=== PATIENT | male | born 1950 | race Caucasian/White ===

== ENCOUNTER 2016-05-22 10:24 | Observation (INO) ==
--- NOTE | 2016-05-22 12:49 | Emergency Department Note ---
Disposition Clinical Impression: Weakness generalized Anemia Qualifiers: Anemia type: unspecified type Qualified Code(s): D64.9 - Anemia, unspecified Dyspnea Qualifiers: Dyspnea type: dyspnea on exertion Qualified Code(s): R06.09 - Other forms of dyspnea Disposition: Admitted As Inpatient Condition: Fair Referrals: Matthew Pool DO [Primary Care Provider] - Forms: ED Satisfaction Letter Time of Disposition: 14:18 General Adult HPI - General Chief complaint: ED Weakness Stated complaint: Low Hemoglobin Time Seen by Provider: 05/22/16 10:39 Source: patient, family Mode of arrival: private vehicle Limitations: no limitations Nursing Notes Reviewed: Yes Vital Signs Reviewed: Yes - History of Present Illness HPI Narrative: Patient presents emergent department reporting that he needs a nasal packing removed from his nose. He was seen here a few days ago after having had a nosebleed that he says went on for about 2 weeks. When he was here a few days ago he had a nasal packing to the right nostril. They did lab work at that time and his hemoglobin was low. He was given a prescription for repeat blood work and was told to follow-up here today in order to have the packing removed while in the emergency department in case it started bleeding again, in which case they would cauterize. The patient says he is been rundown and tired. He does not report any further nose bleeding. He says his stools were pretty black when he was here the first time but he says the stool colors improved significantly. Pt Subjective Complaint: Needs nasal packing removed. Pain Scale: 8 Associated symptoms: Denies: chest pain, shortness of breath, syncope - Related Data Home Medications Medication Instructions Recorded Confirmed Bentyl 09/02/15 Anju Bond 12,000 Units Capsule 09/02/15 Diazepam 09/02/15 Vitamin D3 09/02/15 09/02/15 Previous Rx's Medication Instructions Recorded Ondansetron ODT [Zofran ODT] 4 mg SL Q8HR #9 tab.rapdis 05/19/16 Allergies Allergy/AdvReac Type Severity Reaction Status Date / Time dicyclomine [From Bentyl] Allergy See Verified 05/22/16 10:33 Comments All systems ED: reviewed and negative except as stated. Constitutional: Denies: fever, chills ENT ED: Denies: ear pain, throat pain Cardiovascular: Denies: chest pain, palpitations Respiratory: Denies: cough, dyspnea Gastrointestinal: Denies: abdominal pain, vomiting, hematochezia Musculoskeletal: Denies: back pain Integumentary: Denies: rash Neurological: Denies: headache Hematological/Lymphatic: Denies: easy bleeding, easy bruising Past Medical History - Past Medical History Attestation: Yes The following information was validated with the patient. Source: patient, old records reviewed, obtained from family, nursing notes reviewed Medical history: Reports: diabetes, hyperlipidemia, other Surgical history: Reports: non-contributory Psychiatric history: Reports: anxiety - Social History Smoking Status: Former smoker Smokeless Tobacco Status: No Alcohol use: Reports: none Drug use: Reports: none Physical Exam - General Limitations: no limitations General appearance: alert, in no apparent distress - Head Head exam: atraumatic, normocephalic - Eye Eye exam: Present: normal appearance, PERRL, EOMI - ENT ENT exam: normal oropharynx, mucous membranes moist, normal external ear exam, other (Nasal packing is in place in the right nares.) - Neck Neck exam: Present: normal inspection, full ROM - Chest Chest inspection: Present: normal inspection, symmetric chest wall rise. Absent : tenderness - Respiratory Respiratory exam: Present: normal lung sounds bilaterally. Absent: respiratory distress, wheezes - Cardiovascular Cardiovascular exam: Present: regular rate, normal rhythm, normal heart sounds - Abdominal Exam Abdominal exam: Present: soft, Non-Tender, normal bowel sounds - Rectal Exam Rectal exam: Present: deferred (I did not feel there was any value to doing the rectal exam since he had swallowed so much blood couple of days ago I expect his stool to continue to be guaiac positive even though the color is improving according to his visual inspection) - Extremities Exam Extremities exam: Present: normal inspection, full ROM. Absent: pedal edema - Neurological Exam Neurological exam: Present: alert, oriented X3 - Psychiatric Psychiatric exam: Present: normal affect, normal mood - Skin Skin exam: Present: warm, dry. Absent: rash Course Course Narrative: Patient presents for nasal packing removal. I and removed that packing. There was hardly any blood on the packing at all. No active bleeding after removal. We have observed him for a while already and still no bleeding. I am rechecking his blood count to see where it is. I think if the hemoglobin is already going up then we will not do any transfusion but if the patient's hemoglobin is going down he will need to be admitted for transfusion. - Reevaluation(s) Reevaluation #1: There has been no bleeding from the nose, however Hemoglobin is lower today than it was 3 days ago. Patient is symptomatic with severe fatigue and shortness of breath with exertion. Although he does not carry a diagnosis of COPD, I am sure he has it because of The body shape and history of smoking. I think he needs to be admitted for transfusion. I will contact the hospitalist. Time: 14:10 - Consultations Consultation #1: Dr. Christopher, hospitalist - I discussed the case with the hospitalist. He has been accepted for admission. Vital Signs Temperature 97.5 F L 05/22/16 10:27 Pulse Rate 93 05/22/16 10:27 Respiratory Rate 18 05/22/16 10:27 Blood Pressure 125/80 05/22/16 10:27 O2 Sat by Pulse Oximetry 100 05/22/16 10:27 Temperature 97.5 F L 05/22/16 10:27 Pulse Rate 93 05/22/16 10:27 Respiratory Rate 18 05/22/16 10:27 Blood Pressure 125/80 05/22/16 10:27 O2 Sat by Pulse Oximetry 100 05/22/16 10:27 Oxygen Delivery Oxygen Delivery Room Air Medical Decision Making - Medical Records Medical records reviewed: Yes I reviewed the patient's medical records. - Lab Data Lab results reviewed: Yes I reviewed the patient's lab results. Result diagrams: 05/22/16 13:04 Lab Results 05/22/16 05/22/16 Range/Units 10:39 13:04 WBC 9.3 (4.3-11.1) K/mcL RBC 2.65 L (4.19-5.50) M/mcL Hgb 7.4 L (12.9-16.9) g/dL Hct 22.9 L (37.5-50.1) % MCV 86.4 (83.0-100.0) fL MCH 27.9 L (28.0-33.3) pg MCHC 32.3 (31.6-35.5) g/dL RDW 18.9 H (11.5-14.5) % Plt Count 397 (140-400) K/mcL MPV 9.8 (9.4-12.4) fL Immature Gran % 0.2 (0-4) % Seg Neutrophils % 78.7 % Lymphocytes % 12.3 % Monocytes % 7.2 % Eosinophils % 1.4 % Basophils % 0.2 % Neutrophils # 7.3 (1.6-8.9) K/mcL Lymphocytes # 1.1 (0.6-4.6) K/mcL Monocytes # 0.7 (0.0-1.3) K/mcL Eosinophils # 0.1 (0.0-0.6) K/mcL Basophils # 0.0 (0.0-0.2) K/mcL Immature Plt Fraction 2.7 (1.1-6.1) % POC Glucose 175 H (58-89)
[2016-05-22 13:28] LABS: Basophils % 0.2 %; Eosinophils # 0.1 K/mcL (0.0-0.6); Eosinophils % 1.4 %; Hematocrit 22.9 % (37.5-50.1); Hemoglobin 7.4 g/dL (12.9-16.9); Immature Granulocytes % 0.2 % (0-4); Immature Platelets 2.7 % (1.1-6.1); Lymphocytes # 1.1 K/mcL (0.6-4.6); Lymphocytes % 12.3 %; Mean Corpuscular HGB Conc 32.3 g/dL (31.6-35.5); Mean Corpuscular Hemoglobin 27.9 pg (28.0-33.3); Mean Corpuscular Volume 86.4 fL (83.0-100.0); Mean Platelet Volume 9.8 fL (9.4-12.4); Monocytes # 0.7 K/mcL (0.0-1.3); Monocytes % 7.2 %; Neutrophils # 7.3 K/mcL (1.6-8.9); Platelet Count 397 K/mcL (140-400); Red Blood Count 2.65 M/mcL (4.19-5.50); Red Cell Distribution Width 18.9 % (11.5-14.5); Segmented Neutrophils % 78.7 %
[2016-05-22] MEDS ORDERED: 0.9 % Sodium Chloride 250 ML ONE (16:20)
[2016-05-22] MEDS ORDERED: Ondansetron ODT 4 MG TAB.RAPDIS SL PRN (16:38)
[2016-05-22] MEDS ORDERED: Acetaminophen 325 MG TABLET PO PRN (16:38)
[2016-05-22] MEDS ORDERED: diazePAM 10 MG TABLET PO PRN (16:41)
[2016-05-22] MEDS ORDERED: *HR* Dextrose 50 % in Water (Syg) 50 ML SYRINGE IVP PRN (16:46)
[2016-05-22] MEDS ORDERED: Dextrose Gel 15 GM PO PRN ×2 (16:46)
[2016-05-22] MEDS ORDERED: D5% in Water 1,000 ML IVC PRN (16:46)
--- NOTE | 2016-05-22 19:19 | Internal Med History&Physical ---
Date of Encounter: 05/22/16 Time of Encounter: 07:15 Assessment and Plan (1) Weakness generalized Current visit: Yes Status: Acute Secondary to symptomatic anemia. Plan to transfuse 2 units of packed red blood cells. (2) Epistaxis Current visit: No Status: Resolved Patient reports a two-week history of epistaxis and came to our ED last Saturday , he had a nasal packing that stopped the bleeding. Patient has history of CAD , last [facility] was in 2014 and has been taking Brilinta since then.He stopped taking his home dose of Brilinta 4 days ago. For the past 3 days, he reports generalized weakness associated with dizziness and headache. No fever. No other bleeding. No abdominal pain. No chest pain. Mild shortness of breath on exertion. In our ED, his nasal packing was removed without any particular epistaxis. hemoglobin was 7.4. (3) Dyspnea Current visit: Yes Status: Acute Secondary to symptomatic anemia. Plan to transfuse 2 units of packed red blood cells. Qualifiers: Dyspnea type: dyspnea on exertion Qualified Code(s): R06.09 - Other forms of dyspnea (4) Acute blood loss anemia Current visit: No Status: Acute Secondary to epistaxis. Symptomatic anemia. hemoglobin was 7.4. Patient is hemodynamically stable. Transfuse 2 units of packed red blood cells. Close monitoring of hemoglobin. (5) HTN (hypertension) Current visit: Yes Status: Acute Hold home dose of lisinopril due to low normal blood pressure. Continue Coreg.. 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 Holding brillinta due to acute blood loss anemia. Qualifiers: Coronary Disease-Associated Artery/Lesion type: [place] artery [place] vs. transplanted heart: [place] heart Associated angina: without angina Qualified Code(s): I25.10 - Atherosclerotic heart disease of [place] coronary artery without angina pectoris (7) Diabetes mellitus Current visit: Yes Status: Acute Patient uses Levemir 15 units twice a day. Accu-Chek was 46. Follow glucose was 318. Continue Accu-Chek every 4 hours. Sliding scale insulin. Diabetic diet. Qualifiers: Diabetes mellitus type: type 2 Diabetes mellitus complication status: without complication Diabetes mellitus jail insulin use: with termite exterminator helper use Qualified Code(s): E11.9 - Type 2 diabetes mellitus without complications ; Z79.4 - termite exterminator helper (current) use of insulin Internal Medicine - H&P: HPI Chief complaint: Generalized weakness for 3 days. Admitted From: Home Plans for Post Hospital Care: Home History of present illness: Mr. Cruz is a 66 year old male with a past medical history of CAD, diabetes, hyperlipidemia and hypertension who presented with the chief complaint of generalized weakness. Patient reports a two-week history of epistaxis and came to our ED last Saturday, he had a nasal packing that stopped the bleeding. Patient has history of CAD, last VA was in 2014 and has been taking Brilinta since then. He stopped taking his home dose of Brilinta 4 days ago. For the past 3 days, he reports generalized weakness associated with dizziness and headache. No fever. No other bleeding. No abdominal pain. No chest pain. Mild shortness of breath on exertion. In our ED, his nasal packing was removed without any particular epistaxis. hemoglobin was 7.4. Past Med Surg Social Fam HX - Past Medical History Medical history: diabetes, hyperlipidemia, other Psychiatric history: anxiety, depression - Past Surgical History Surgical History: non-contributory, angioplasty/stent, cholecystectomy - Social History Smoking Status: Former smoker Smokeless Tobacco Status: No Alcohol use: none Drug use: none, other - Family History Sister Hx Family Cardiac Disorders: Yes (CAD) Internal Medicine - H&P: Meds Diazepam [Valium] 10 mg PO BID PRN 09/02/15 [History] Dicyclomine [Bentyl] 10 mg PO QID 09/02/15 [History] Ondansetron ODT [Zofran ODT] 4 mg SL Q8HR #9 tab.rapdis 05/19/16 [Rx] Carvedilol 3.125 mg PO BID 05/22/16 [History] Insulin DETEMIR [Levemir Flextouch] 15 unit SQ BID 05/22/16 [History] Insulin Human Regular [HumuLIN R] 10 unit IJ 5XD 05/22/16 [History] Levothyroxine Sodium [Levoxyl] 200 mcg PO DAILY 05/22/16 [History] Lipase/Protease/Amylase [Anju Bond 24,000 Units Capsule] 4 - 5 cap PO TIDWM 05/22 [History] Lisinopril [Zestril] 5 mg PO BID 05/22/16 [History] Simvastatin [Zocor] 20 mg PO HS 05/22/16 [History] Ticagrelor [Brilinta] 90 mg PO BID 05/22/16 [History] Allergies dicyclomine [From Bentyl] Allergy (Verified 05/22/16 10:33) See Comments All Systems PM: A 10-system review of systems was performed and is negative for pertinent findings except as documented above in the HPI. - Constitutional Vitals: Temp Pulse Resp BP Pulse Ox 97.9 F 72 16 118/82 100 05/22/16 16:30 05/22/16 16:30 05/22/16 16:30 05/22/16 16:30 05/22/16 16:30 General appearance: Present: cooperative, A&O X 3, pleasant, no acute distress, answers questions appropriately - Eye Eye exam: Present: sclera anicteric (pale) - ENT ENT exam: Present: mucous membranes dry - Neck Neck exam general surgery: Present: supple, trachea midline. Absent: lymphadenopathy - Respiratory Respiratory exam: Present: CTAB - Cardiovascular Cardiovascular exam: Present: RRR - GI/Abdominal GI/Abdominal exam: Present: normal bowel sounds, soft. Absent: distended, tenderness - Extremities Exam Extremities exam: Absent: pedal edema - Neurological Exam Neurological exam: Present: alert, oriented X3, no focal deficits, strengths equal and symetr throughout. Absent: facial droop, speech deficit - Skin Additional comments: pale Internal Med - H&P Results - Labs CBC & Chem 7: 05/22/16 13:04
[2016-05-22] MEDS: Insulin LISPRO 300 UNITS/3 ML VIAL SQ SCH (21:06)
[2016-05-23] MEDS: Insulin LISPRO 300 UNITS/3 ML VIAL SQ SCH ×3 (01:14→08:30)
[2016-05-23] MEDS ORDERED: 0.9 % Sodium Chloride 500 ML ONE (03:08)
[2016-05-23 06:21] VITALS: BP 129/81
[2016-05-23 07:52] LABS: Basophils % 0.4 %; Eosinophils # 0.1 K/mcL (0.0-0.6); Eosinophils % 1.6 %; Hematocrit 30.4 % (37.5-50.1); Immature Granulocytes % 0.2 % (0-4); Lymphocytes # 1.1 K/mcL (0.6-4.6); Lymphocytes % 11.8 %; Mean Corpuscular HGB Conc 32.9 g/dL (31.6-35.5); Mean Corpuscular Volume 85.2 fL (83.0-100.0); Mean Platelet Volume 9.6 fL (9.4-12.4); Monocytes # 0.8 K/mcL (0.0-1.3); Monocytes % 8.3 %; Platelet Count 285 K/mcL (140-400); Red Blood Count 3.57 M/mcL (4.19-5.50); Red Cell Distribution Width 18.6 % (11.5-14.5); Segmented Neutrophils % 77.7 %
[2016-05-23 08:02] LABS: BUN/Creatinine Ratio 18 (6-26); Blood Urea Nitrogen 17 mg/dL (8-26); Calcium 8.5 mg/dL (8.6-10.8); Carbon Dioxide 20 mEq/L (19-29); Chloride 104 mEq/L (98-109); Glucose 152 mg/dL (70-99); INR 1.1; Magnesium 1.5 mg/dL (1.6-2.6); Osmolality,Calculated 277 (280-300); Phosphorous 2.7 mg/dL (2.3-4.7); Potassium 4.5 mEq/L (3.5-4.5); Prothrombin Time 11.8 Seconds (9.4-12.1); Sodium 131 mEq/L (136-145); eGFR For African Americans > 60 (> 60); eGFR For Non-African Americans > 60 (> 60)
[2016-05-23 08:04] LABS: Activated Partial Thrombo Time 29.7 Seconds (26.0-36.0)
[2016-05-23] MEDS ORDERED: Magnesium Sulfate 1 GM in D5% in Water 100 ML IVPB ONE (08:10)
[2016-05-23] MEDS ORDERED: Pantoprazole 40 MG VIAL IVP SCH (09:00)
[2016-05-23] MEDS ORDERED: Insulin DETEMIR 100 UNIT/ML X5UNITS SQ ONE (09:31)
--- NOTE | 2016-05-23 09:32 | Discharge Summary ---
Date of Encounter: 05/23/16 Time of Encounter: 09:29 - Discharge Diagnosis (1) Weakness generalized Priority: Primary Status: Acute (2) Epistaxis Priority: Primary Status: Resolved (3) Dyspnea Priority: Primary Status: Acute Qualifiers: Dyspnea type: dyspnea on exertion Qualified Code(s): R06.09 - Other forms of dyspnea (4) Acute blood loss anemia Priority: Primary Status: Acute (5) HTN (hypertension) Priority: Secondary Status: Chronic Qualifiers: Hypertension type: essential hypertension Qualified Code(s): I10 - Essential (primary) hypertension (6) CAD (coronary artery disease) Priority: Secondary Status: Chronic Qualifiers: Coronary Disease-Associated Artery/Lesion type: [place] artery [place] vs. 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 oracle developer insulin use: with lead oracle developer use Qualified Code(s): E11.9 - Type 2 diabetes mellitus without complications ; Z79.4 - prison (current) use of insulin - Discharge Medications Home Medications: Diazepam [Valium] 10 mg PO BID PRN 09/02/15 [History] Dicyclomine [Bentyl] 10 mg PO QID 09/02/15 [History] Carvedilol 3.125 mg PO BID 05/22/16 [History] Insulin DETEMIR [Levemir Flextouch] 15 unit SQ BID 05/22/16 [History] Insulin Human Regular [HumuLIN R] 10 unit IJ 5XD 05/22/16 [History] Levothyroxine Sodium [Levoxyl] 200 mcg PO DAILY 05/22/16 [History] Lipase/Protease/Amylase [Creon Dr 24,000 Units Capsule] 4 - 5 cap PO TIDWM 05/22 [History] Lisinopril [Zestril] 5 mg PO BID 05/22/16 [History] Simvastatin [Zocor] 20 mg PO HS 05/22/16 [History] Allergies/Adverse Reactions: Allergies dicyclomine [From Bentyl] Allergy (Verified 05/22/16 10:33) See Comments Date of admission: 05/22/16 14:32 Primary care physician: Matthew F Emlich, DO - Patient Status Disposition: Home, Self-Care Condition: Good Functional capacity at discharge: independent ambulation Overall status at discharge: patient is progressing back to baseline - Discharge Instructions Follow Up With: Matthew Pool DO [Primary Care Provider] - 06/11/16 10:30 am (f/u with PCP in 1 week) Additional Instructions: your hemoglobin level is 10 after you received a transfusion of 2 units of red blood cells. follow up with your primary care doctor for a repeat blood test. Stop taking Brilinta until you see your primary care doctor next Saturday. Stop taking your home dose of lisinopril for a few days until your body gets used to your low hemoglobin. check your blood pressure twice daily (same time in the morning and evening) and if SBP >140/90 please resume your lisinopril 5 mg twice daily. check your blood sugars at home before meals and at bedtime. - Diet and Activity Activity: other (avoid heavy activities, take it easy for a week. ) Diet: diabetic diet, low fat, low cholesterol, low salt diet Interval History: patient feels better this morning, no weakness, no shortness of breath. no bleeding. he is ambulating inside his room without any complains. He is eager to go home. Hospital course: Mr. Cruz is a 66 year old male with a past medical history of CAD, diabetes, hyperlipidemia and hypertension who presented with the chief complaint of generalized weakness. Patient reports a two-week history of epistaxis, he came to our ED last Saturday and had a nasal packing that stopped the bleeding. Patient has history of CAD, last [facility] was in 2014 and has been taking Brilinta since then. He stopped taking his home dose of Brilinta 4 days ago. For the past 3 days, he reports generalized weakness associated with dizziness and headache. No fever. No other bleeding. No abdominal pain. No chest pain. Mild shortness of breath on exertion. In our ED, his nasal packing was removed and has had no more epistaxis. Hemoglobin was 7.4. Given his symptomatic anemia, patient was transfused 2 units of packed red blood cells with resolution of all his symptoms. The day of discharge, patient was ambulating and eating well. PLAN: Follow-up with primary care physician in one week. Repeat CBC in 1-2 weeks. She was advised to stop his home dose of Brilinta until follow up appointment with PCP. He was instructed not to take his home dose of lisinopril for a few days and to check his blood pressure twice daily. If blood pressure above 140/90, he should resume his lisinopril 5 mg twice a day. Patient verbalized understanding and agreed with the plan. All questions answered. - Time Spent with Patient Total time spent providing and/or coordinating discharge services: - Constitutional Vitals: Temp Pulse Resp BP Pulse Ox 98.0 F 72 18 129/81 98 05/23/16 06:20 05/23/16 06:20 05/23/16 06:20 05/23/16 06:20 05/23/16 06:50 General appearance: Present: cooperative, A&O X 3, pleasant, no acute distress, answers questions appropriately - Eye Eye exam: Present: PERRL, sclera anicteric - Neck Neck exam general surgery: Present: supple, trachea midline. Absent: lymphadenopathy - Respiratory Respiratory exam: Present: CTAB - Cardiovascular Cardiovascular exam: Present: RRR - GI/Abdominal GI/Abdominal exam: Present: normal bowel sounds, soft. Absent: distended, tenderness - Extremities Exam Extremities exam: Absent: pedal edema - Back Exam Back exam: Absent: CVA tenderness (L), CVA tenderness (R) - Neurological Exam Neurological exam: Present: alert, oriented X3, no focal deficits, strengths equal and symetr throughout. Absent: facial droop, speech deficit - Skin Skin exam: Absent: rash
== END 2016-05-23 12:43 | disposition home or self-care (01) ==
LOC: EMEROO 10:24 → 3ANU 10:24
PROVIDERS: ADMIT Internal Medicine; ATTEND Internal Medicine

== ENCOUNTER 2016-05-25 23:50 | Observation (INO) ==
[2016-05-26] MEDS ORDERED: Aspirin 81 MG TAB.CHEW PO ONE (00:09)
[2016-05-26 00:15] LABS: Basophils # 0.1 K/mcL (0.0-0.2); Basophils % 0.5 %; Eosinophils # 0.2 K/mcL (0.0-0.6); Eosinophils % 1.4 %; Hematocrit 30.8 % (37.5-50.1); Hemoglobin 9.8 g/dL (12.9-16.9); Immature Granulocytes % 0.3 % (0-4); Lymphocytes # 1.5 K/mcL (0.6-4.6); Mean Corpuscular HGB Conc 31.8 g/dL (31.6-35.5); Mean Corpuscular Hemoglobin 27.3 pg (28.0-33.3); Mean Corpuscular Volume 85.8 fL (83.0-100.0); Mean Platelet Volume 8.8 fL (9.4-12.4); Monocytes # 0.8 K/mcL (0.0-1.3); Monocytes % 7.4 %; Neutrophils # 8.1 K/mcL (1.6-8.9); Platelet Count 378 K/mcL (140-400); Red Blood Count 3.59 M/mcL (4.19-5.50); Red Cell Distribution Width 18.5 % (11.5-14.5); Segmented Neutrophils % 76.4 %
--- NOTE | 2016-05-26 00:16 | Emergency Department Note ---
Disposition Clinical Impression: Esophagitis Chest pain Qualifiers: Chest pain type: chest pain on breathing Qualified Code(s): R07.1 - Chest pain on breathing Disposition: Admitted As Inpatient Condition: Good Time of Disposition: 04:16 Chest Pain HPI - General Chief Complaint: ED Chest Pain Stated Complaint: chest pain Time Seen by Provider: 05/25/16 23:58 Source: patient Limitations: no limitations Vital Signs Reviewed: Yes Nursing Notes Reviewed: Yes - History of Present Illness HPI Narrative: Patient presents emergency room complaining of substernal chest pain. Started approximately 6 hours prior to arrival. Patient admitted in the hospital several times over the last week with anemia and a nosebleed. Does have a history of myocardial infarction with stent placement approximately 2 years ago. Was stopped off his blood thinner last week because of the bleed. Denies any other medication changes, or injury. He has never had any like this before but the pain in his chest wall does seem to be similar to his previous myocardial infarction from what he can remember. Denies any other issues at this point Pt complaint: chest pain Onset (ago): Just [employer] Duration: constant Pain Location: substernal Severity: severe Severity scale (1-10): 10 Quality: sharp Improves with: nothing Worsens with: nothing Context: recent illness Treatments prior to arrival chest pain: none - Related Data Home Medications Medication Instructions Recorded Confirmed Diazepam [Valium] 10 mg PO BID PRN 09/02/15 05/22/16 Dicyclomine [Bentyl] 10 mg PO QID 09/02/15 05/22/16 Carvedilol 3.125 mg PO BID 05/22/16 05/22/16 Insulin DETEMIR [Levemir Flextouch] 15 unit SQ BID 05/22/16 05/22/16 Insulin Human Regular [HumuLIN R] 10 unit IJ 5XD 05/22/16 05/22/16 Levothyroxine Sodium [Levoxyl] 200 mcg PO DAILY 05/22/16 05/22/16 Lipase/Protease/Amylase [Anju Dr 4 - 5 cap PO TIDWM 05/22/16 05/22/16 24,000 Units Capsule] Lisinopril [Zestril] 5 mg PO BID 05/22/16 05/22/16 Simvastatin [Zocor] 20 mg PO HS 05/22/16 05/22/16 Allergies Allergy/AdvReac Type Severity Reaction Status Date / Time dicyclomine [From Bentyl] Allergy See Verified 05/25/16 23:55 Comments All systems ED: reviewed and negative except as stated. Constitutional: Denies: fever, chills Cardiovascular: Reports: chest pain. Denies: palpitations, dyspnea on exertion , orthopnea Respiratory: Denies: dyspnea, wheezes, hemoptysis Gastrointestinal: Denies: nausea, vomiting, diarrhea Genitourinary: Denies: dysuria, frequency Musculoskeletal: Denies: back pain, neck pain Chest Pain PMH - Past Medical History Medical history: Reports: diabetes, hyperlipidemia, other Surgical history: Reports: non-contributory, angioplasty/stent, cholecystectomy Psychiatric history: Reports: anxiety, depression - Social History Smoking Status: Former smoker Alcohol use: Reports: none Drug use: Reports: none, other Physical Exam - General Limitations: no limitations General appearance: alert - Chest Chest inspection: Present: normal inspection, symmetric chest wall rise, tenderness (Tenderness to the anterior chest wall over the sixth through 10th ribs. No gross deformity or lesions.) - Respiratory Respiratory exam: Present: normal lung sounds bilaterally. Absent: respiratory distress, wheezes, stridor, accessory muscle use - Cardiovascular Cardiovascular exam: Present: regular rate, normal rhythm, normal heart sounds - Abdominal Exam Abdominal exam: Present: soft, Non-Tender, normal bowel sounds. Absent: tenderness, distention, guarding, rebound, rigidity, Beltran's sign, Rovsing's sign, tenderness at McBurney's Point - Extremities Exam Extremities exam: Present: normal inspection, full ROM. Absent: tenderness, pedal edema - Back Exam Back exam: Present: normal inspection, full ROM. Absent: tenderness - Neurological Exam Neurological exam: Present: alert, oriented X3, CN II-XII intact, normal gait - Psychiatric Psychiatric exam: Present: normal affect, normal mood Course Course Narrative: Patient seen and examined the time of arrival. See history of present illness. 66-year-old male presents emergency room with midsternal chest pain radiating to his chest wall. History of myocardial infarction the past similar to this in presentation. This was seen in this emergency room for nose bleed. Transfuse 2 units at bedtime. Stop his blood thinner. Vital signs reviewed here or stable. Symptoms appear to be right-sided chest wall with no visible signs of trauma or injury. Heart is regular lungs are clear abdomen is soft nontender nondistended. Patient speaking in full sentences in some moderate distress. Concern is noted for anginal-like symptoms secondary to cardiac history recently stopping his blood thinner. EKG done initially shows stable morphology in comparison to an EKG performed on 10/01/13. Patient be provided with aspirin and nitroglycerin trial here. Symptoms will be reevaluated. Labs EKG chest x-ray troponin all earlier this time. Patient may need other definitive imaging studies. Was given as needed. Otherwise patient has stable evaluation with no acute signs of anemia based on the conjunctiva. He has not had any bleeding since the event. Patient was ambulatory and doing well according the family members at the bedside. Disposition I treatment course. Patient will most likely need admission once this is completed - Reevaluation(s) Reevaluation #1: Patient did not respond to nitroglycerin. Symptoms are still persistent. Pain medication provided and seems to be helping the symptoms at this time. Concern is noted for possible aneurysm or dissection. Patient says his pain continues to be intermittent but comes back aggressive and then leave cystoscopically. Imaging warranted at this time. Disposition pending treatment course. Blood pressure stable. Time: 01:46 Reevaluation #2: Patient found to have esophagitis based on CT scan of the chest and abdomen. No acute signs of dissection or aneurysm. Patient given viscous lidocaine and then acid suppression medication here. Disposition pending treatment course. Otherwise patient's labs are all within his normal limit at this time. Time: 02:58 Reevaluation #3: Patient was reviewed with the hospitalist Dr. Maddox. Detailed discussion the patient's presentation symptoms medical intervention were reviewed. He had no other recommendations or concerns at this time. Patient will be admitted to a telemetry bed at his request. Patient is stable and probably represented the plan and comfortable with the workup and treatment course. Patient will be admitted the hospital this time for definitive management observed here in the emergency room until admission processes completed Time: 04:15 Vital Signs Temperature 97.6 F 05/25/16 23:51 Pulse Rate 89 05/25/16 23:51 Respiratory Rate 18 05/25/16 23:51 Blood Pressure 133/79 05/25/16 23:51 O2 Sat by Pulse Oximetry 99 05/25/16 23:51 Temperature 97.6 F 05/25/16 23:51 Pulse Rate 73 05/26/16 03:55 Respiratory Rate 18 05/26/16 03:55 Blood Pressure 138/86 05/26/16 03:55 O2 Sat by Pulse Oximetry 99 05/26/16 03:55 Oxygen Delivery Oxygen Delivery Room Air Chest Pain - MDM Narrative Medical decision making narrative: Chest pain, esophagitis - Medical Records Medical records reviewed: Yes I reviewed the patient's medical records. - Lab Data Lab results reviewed: Yes I reviewed the patient's lab results. Result diagrams: 05/26/16 00:06 05/26/16 00:06 Lab Results 05/26/16 05/26/16 05/26/16 Range/Units 00:06 00:06 00:06 WBC 10.5 (4.3-11.1) K/mcL RBC 3.59 L (4.19-5.50) M/mcL Hgb 9.8 L (12.9-16.9) g/dL Hct 30.8 L (37.5-50.1) % MCV 85.8 (83.0-100.0) fL MCH 27.3 L (28.0-33.3) pg MCHC 31.8 (31.6-35.5) g/dL RDW 18.5 H (11.5-14.5) % Plt Count 378 (140-400) K/mcL MPV 8.8 L (9.4-12.4) fL Immature Gran % 0.3 (0-4) % Seg Neutrophils % 76.4 % Lymphocytes % 14.0 % Monocytes % 7.4 % Eosinophils % 1.4 % Basophils % 0.5 % Neutrophils # 8.1 (1.6-8.9) K/mcL Lymphocytes # 1.5 (0.6-4.6) K/mcL Monocytes # 0.8 (0.0-1.3) K/mcL Eosinophils # 0.2 (0.0-0.6) K/mcL Basophils # 0.1 (0.0-0.2) K/mcL PT 12.1 (9.4-12.1) Seconds INR 1.1 APTT 31.2 (26.0-36.0) Seconds Sodium (136-145) mEq/L Potassium (3.5-4.5) mEq/L Chloride (98-109) mEq/L Carbon Dioxide (19-29) mEq/L BUN (8-26) mg/dL Creatinine (0.72-1.25) mg/dL Est GFR ( Amer) (> 60) Est GFR (Non-Af Amer) (> 60) BUN/Creatinine Ratio (6-26) Glucose (70-99) mg/dL Calculated Osmolality (280-300) Calcium (8.6-10.8) mg/dL Troponin I (0-0.03) ng/mL B-Natriuretic Peptide 74 (0-100) pg/mL 05/26/16 05/26/16 05/26/16 Range/Units 00:06 00:06 03:38 WBC (4.3-11.1) K/mcL RBC (4.19-5.50) M/mcL Hgb (12.9-16.9) g/dL Hct (37.5-50.1) % MCV (83.0-100.0) fL MCH (28.0-33.3) pg MCHC (31.6-35.5) g/dL RDW (11.5-14.5) % Plt Count (140-400) K/mcL MPV (9.4-12.4) fL Immature Gran % (0-4) % Seg Neutrophils % % Lymphocytes % % Monocytes % % Eosinophils % % Basophils % % Neutrophils # (1.6-8.9) K/mcL Lymphocytes # (0.6-4.6) K/mcL Monocytes # (0.0-1.3) K/mcL Eosinophils # (0.0-0.6) K/mcL Basophils # (0.0-0.2) K/mcL PT (9.4-12.1) Seconds INR APTT (26.0-36.0) Seconds Sodium 137 (136-145) mEq/L Potassium 4.5 (3.5-4.5) mEq/L Chloride 108 (98-109) mEq/L Carbon Dioxide 24 (19-29) mEq/L BUN 11 (8-26) mg/dL Creatinine 0.82 (0.72-1.25) mg/dL Est GFR ( Amer) > 60 (> 60) Est GFR (Non-Af Amer) > 60 (> 60) BUN/Creatinine Ratio 13 (6-26) Glucose 48 L (70-99) mg/dL Calculated Osmolality 281 (280-300) Calcium 8.7 (8.6-10.8) mg/dL Troponin I 0.02 0.02 (0-0.03) ng/mL B-Natriuretic Peptide (0-100) pg/mL - Radiology Data Radiology results reviewed: Yes I reviewed the patient's radiology results. Chest x-ray is stable. - EKG Data EKG attestation: Yes I reviewed and interpreted this EKG. EKG shows normal: sinus rhythm, intervals, QRS complexes, ST-T waves Rate: normal [place]/QRS: left axis deviation When compared to previous EKG there are: no significant changes Interpretation: no acute changes, unchanged when compared to prior tracing (date ) (10/01/13), other (Repeat EKG shows stable morphology with no acute signs of change her ST segment elevations this time.) Heart Score - Score History: Moderately Suspicious EKG: Non Specific repolarisation Disturbance Age: 45-65 Risk Factors: Equal/Greater than 3 risk factor or history of atherosclerotic disease Troponin: Less than normal limit HEART Score Total: 5 Attestation Statement - Attestation Attestation: I, Brennan Cam MD, personally performed a history and physical exam of the patient and discussed their management with the resident. I reviewed the resident's note and agree with the documented findings, medical decision making , and plan of care. 66-year-old male presents to the emergency department with a complaint of lower substernal and right lower chest pain which started about 6 to 8 hours prior to arrival. Pain has been constant since onset. No radiation of the pain. Some nausea but no vomiting. Mild shortness of breath and patient states it hurts more to take deep breaths so he has been breathing shallow. No diaphoresis. Patient does have a prior history of NM and has 3 coronary artery stents. On examination patient is a well-developed thin elderly male in no acute distress. He is alert and oriented 3. There is no cyanosis or diaphoresis. Chest is nontender to palpation. Breath sounds are decreased but equal bilaterally. Heart regular rate and rhythm. Abdomen soft and nontender with normal bowel sounds. No acute changes on EKG and unchanged from prior EKG. Chest x-ray negative. Labs reviewed. Troponin normal. CT of the chest abdomen and pelvis showed esophagitis and chronic pancreatitis. No aneurysm or dissection. The hospitalist, Dr. Maddox, was consulted and accepted admission of the patient.
[2016-05-26 00:20] LABS: INR 1.1; Prothrombin Time 12.1 Seconds (9.4-12.1)
[2016-05-26 00:23] LABS: Activated Partial Thrombo Time 31.2 Seconds (26.0-36.0)
[2016-05-26] MEDS: Nitroglycerin 0.4 MG TAB.SUBL SL ONE ×2 (00:25→00:31)
[2016-05-26 00:26] LABS: BUN/Creatinine Ratio 13 (6-26); Blood Urea Nitrogen 11 mg/dL (8-26); Calcium 8.7 mg/dL (8.6-10.8); Carbon Dioxide 24 mEq/L (19-29); Chloride 108 mEq/L (98-109); Glucose 48 mg/dL (70-99); Osmolality,Calculated 281 (280-300); Potassium 4.5 mEq/L (3.5-4.5); Sodium 137 mEq/L (136-145); eGFR For African Americans > 60 (> 60); eGFR For Non-African Americans > 60 (> 60)
[2016-05-26] MEDS ORDERED: *HR* Morphine 2 MG/ML SYRINGE IVP ONE (00:43)
[2016-05-26] MEDS ORDERED: 0.9 % Sodium Chloride 1,000 ML IVC ONE (00:56)
[2016-05-26] MEDS ORDERED: Lidocaine Viscous Oral Soln 15 ML SOLUTION MM STA (02:50)
[2016-05-26] MEDS ORDERED: Pantoprazole 40 MG VIAL IVP ONE (03:55)
[2016-05-26] MEDS ORDERED: Ondansetron 4 MG/2 ML VIAL IV ONE (04:01)
[2016-05-26] MEDS ORDERED: *HR* HYDROmorphone (PF) 1 MG/ML SYRINGE IVP ONE (04:01)
[2016-05-26] MEDS: 0.9 % Sodium Chloride 1,000 ML IVC SCH ×2 (04:42→14:42)
[2016-05-26] MEDS ORDERED: diazePAM 10 MG TABLET PO PRN (05:43)
[2016-05-26] MEDS ORDERED: *HR* Dextrose 50 % in Water (Syg) 50 ML SYRINGE IVP PRN (05:45)
[2016-05-26] MEDS ORDERED: D5% in Water 1,000 ML IVC PRN (05:45)
[2016-05-26] MEDS ORDERED: Mag Hydrox/Al Hydrox/Simeth 30 ML UDC PO PRN (05:45)
[2016-05-26] MEDS ORDERED: *HR* OxyCODONE Immed Rel 5 MG TABLET PO PRN (05:45)
[2016-05-26] MEDS ORDERED: *HR* Promethazine 25 MG/ML VIAL IVP PRN (05:45)
[2016-05-26] MEDS ORDERED: Dextrose Gel 15 GM PO PRN ×2 (05:45)
[2016-05-26] MEDS ORDERED: Naloxone 0.4 MG/ML INJ IVP PRN (05:45)
[2016-05-26] MEDS ORDERED: *HR* Metoprolol 5 MG/5 ML VIAL IVP PRN (05:45)
[2016-05-26] MEDS ORDERED: Acetaminophen 325 MG TABLET PO PRN (05:45)
[2016-05-26] MEDS ORDERED: Benzonatate 100 MG CAPSULE PO PRN (05:55)
--- NOTE | 2016-05-26 06:01 | Internal Med History&Physical ---
Date of Encounter: 05/26/16 Time of Encounter: 05:00 Assessment and Plan (1) Chest pain, rule out acute myocardial infarction Current visit: Yes Status: Acute . (2) Chest pain with low risk of acute coronary syndrome Current visit: Yes Status: Acute . (3) Chronic pancreatitis Current visit: Yes Status: Chronic . Qualifiers: Pancreatitis type: unspecified pancreatitis type Qualified Code(s): K86.1 - Other chronic pancreatitis (4) Exocrine pancreatic insufficiency Current visit: Yes Status: Chronic . (5) Left renal artery stenosis Current visit: Yes Status: Chronic . (6) GERD (gastroesophageal reflux disease) Current visit: Yes Status: Chronic . Qualifiers: Esophagitis presence: with esophagitis Qualified Code(s): K21.0 - Gastro- esophageal reflux disease with esophagitis (7) Weakness generalized Current visit: Yes Status: Chronic . (8) HTN (hypertension) Current visit: Yes Status: Chronic . Qualifiers: Hypertension type: unspecified secondary hypertension Qualified Code(s): I15.9 - Secondary hypertension, unspecified; I15 - Secondary hypertension (9) CAD (coronary artery disease) Current visit: Yes Status: Chronic . Qualifiers: Coronary Disease-Associated Artery/Lesion type: [place] artery [place] vs. transplanted heart: [place] heart Associated angina: with unspecified angina Qualified Code(s): I25.119 - Atherosclerotic heart disease of [place] coronary artery with unspecified angina pectoris (10) Diabetes mellitus Current visit: Yes Status: Chronic Qualifiers: Diabetes mellitus type: type 2 Diabetes mellitus complication status: with unspecified complications Diabetes mellitus custodial insulin use: unspecified custodial insulin use status Qualified Code(s): E11.8 - Type 2 diabetes mellitus with unspecified complications (11) Esophagitis Current visit: Yes Status: Acute . (12) Debility, unspecified Current visit: Yes Status: Acute . Internal Medicine - H&P: HPI Chief complaint: Chest pain. Admitted From: Emergency Dept Plans for Post Hospital Care: Home History of present illness: Mr. Cruz is a 66 year old male with history significant of COPD, hypertension , dyslipidemia, CAD/PTCAstent x3/AMI, type II diabetes mellitus, chronic pancreatitis, depression/anxiety, hypothyroidism, former smoker. The patient is admitted to [facility] through the emergency department when he presents with reports of substernal chest pain. Pain began approximately 6 hours prior to arrival. Patient had recently been admitted May 22 with acute blood loss anemia secondary to profound epistaxis while on chronic anticoagulation Brilinta. He required transfusion therapy and was discharged in stable condition. As his myocardial infarction with stent placement occurred approximately 2 years prior. Off his blood thinning agents last week because of his symptomatic bleed. Current pain is similar to what has been experienced with angina pectoris of cardiac origin. He described it as severe. Substernal. Rated at 10/10 in severity with sharp radiation. Nothing seemed to improve pain when present or worsen it. He has experienced some subjective shortness of breath and reports that at times it hurts more to take a deep breath so he is breathing shallow because of this. Denies diaphoresis. He denied dyspnea wheezes hemoptysis hematemesis epistaxis nausea vomiting abdominal pain diarrhea dysuria frequency neck/ back/flank pain. EKG performed in the ED showed stable morphology as compared to previous studies. Patient was given aspirin and sublingual nitroglycerin trials. This however offered little improvement. Reproducible tenderness was elicited along the anterior chest wall and V6 through 10th ribs. No gross deformity or lesions apparent. Findings in the ED noted stable vital signs. Temperature 97.6. WBC 10.5. Hemoglobin 9.8 hematocrit 30.8. MCH 27.3. RDW 18.5. MPV 8.8. Differential normal. PT 12.1 INR 1.1 PTT 31.2. Pediatric peptide 74. Troponin 0.02. Metabolic panel normal. BUN 11 creatinine 0.82. Glucose 48. Osmolality 281. CT angiogram of the chest was obtained. There was no evidence for aneurysm or dissection. No evidence for pulmonary embolus. Circumferential thickening of the distal esophagus was noted consistent with esophagitis. There was no evidence for pneumothorax and pleural effusion. Central airways were patent. Atelectasis seen bilaterally without associated infiltrate. Extensive pancreatic calcifications consistent with chronic pancreatitis. Bilateral adrenal hypertrophy. Right renal cysts. Left kidney grossly normal. Status post cholecystectomy. Bowel caliber normal. Normal appendix. Urinary bladder normal. No evidence for aortic aneurysm or dissection in the retroperitoneum. 2 right renal arteries noted. Moderate stenosis seen in the proximal left renal artery. No adenopathy or mesenteric stranding. No acute bone or soft tissue abnormalities. CT angiogram of the abdomen is confirmatory of above. Chest x-ray demonstrated no acute or active cardiopulmonary process. The patient received a mixture of viscous lidocaine and liquid antiacid suppression medication prior to inpatient placement. This offered some relief of discomfort. Preliminary impression suggest acute chest pain syndrome with typical and atypical features in a patient with known coronary artery disease status post stent interventions. Clinical findings and radiographic studies demonstrated evidence for acute esophagitis with likely GERD and associated esophageal spasm. Initial screening studies for ACS/UA/PND/ aortic dissection/aortic aneurysm, etc. returned negative. No evidence for recurrent acute blood loss noted off chronic antiplatelet and anticoagulant therapy. Significant hypoglycemia noted in a patient with problematic, brittle nature of diabetes control. His hypoglycemia may at the patient's generalized malaise and feelings of weakness. The patient is at risk for further clinical decline. Workup and treatments will proceed comprehensively. The patient was visited and interviewed and examined. Cumulative laboratory and radiographic database was reviewed and considered. Consultative opinions will be sought as clinical circumstances justify. Plan of care has been discussed. Questions addressed. Hospital course will be dependent upon clinical findings, treatment response and potential consultative interventions. The patient presenting concerns, past medical history, clinical findings and symptoms, he is admitted at this time to undergo further evaluation and disposition. Orders were written as per the computerized physician ordering system. Condition is serious. Prognosis is guarded. CODE STATUS is full. Past Med Surg Social Fam HX - Past Medical History Source: old records reviewed Medical history: arthritis, COPD, coronary artery disease, diabetes, GERD, GI bleed, hyperlipidemia, hypertension, liver disease (Chronic pancreatitis.), myocardial infarction, thyroid disease, other (Irritable bowel syndrome. Diarrhea associated with pancreatic insufficiency) Psychiatric history: anxiety, depression, other - Past Surgical History Surgical History: non-contributory, angioplasty/stent, cholecystectomy, other - Social History Smoking Status: Former smoker Smokeless Tobacco Status: No Alcohol use: none Drug use: none, other Occupational status: retired Current living situation: Home - Independent, Home Activity Level: Independent ambulation, Mostly sedentary Recent Out of Country Travel Within the Last 8 Weeks: No Exposure or Possible Exposure to Illness During Travel: No - Family History Sister Hx Family Cardiac Disorders: Yes (CAD) Father Adopted: [place]: Selena Cruz Family Member Ethnicity: Non- Living Status: Age at : 52 Cause of : anyurism Hx Family Cardiac Disorders: No Hx Family Respiratory Disorders: No Hx Family Cancer: No Hx Family GI Disorders: Yes (AAA) Hx Family Genitourinary Disorders: No Hx Family Endocrine Disorder: No Hx Family Musculoskeletal Disorders: No Hx Family Neuromuscular Disorders: No Hx Family Neurologic Disorders: No Hx Family HEENT Disorders: No Hx Family Autoimmune Disorders: No Hx Family Reproductive Disorders: No Hx Family Psychosocial Disorders: No Hx Family Medical Disorders: No Internal Medicine - H&P: Meds Diazepam [Valium] 10 mg PO BID PRN 09/02/15 [History] Insulin DETEMIR [Levemir Flextouch] 15 unit SQ BID 05/22/16 [History] Insulin Human Regular [HumuLIN R] 10 unit IJ 5XD 05/22/16 [History] Levothyroxine Sodium [Levoxyl] 150 mcg PO DAILY 05/22/16 [History] Lipase/Protease/Amylase [Creon Dr 24,000 Units Capsule] 4 - 5 cap PO TIDWM 05/22 [History] Lisinopril [Zestril] 5 mg PO BID 05/22/16 [History] Simvastatin [Zocor] 20 mg PO HS 05/22/16 [History] Allergies dicyclomine [From Bentyl] Allergy (Verified 05/25/16 23:55) See Comments All Systems PM: A 10-system review of systems was performed and is negative for pertinent findings except as documented above in the HPI. - Constitutional Constitutional: as per HPI, malaise, no chills, no fever(s), no night sweats - EENT Eyes: as per HPI, no change in vision, no discharge, no pain, no photophobia Ears: as per HPI, no ear discharge, no ear pain, no tinnitus Nose, mouth and throat: as per HPI, no bleeding gums, no dysphagia, no epistaxis , no facial pain, no nasal discharge, no neck pain, no sore throat - Cardiovascular Cardiovascular ROS IM: as per HPI, chest pain, other, no diaphoresis, no dyspnea , no dyspnea on exertion, no edema, no lightheadedness, no palpitations, no syncope - Respiratory Respiratory: as per HPI, dyspnea, pain on inspiration, no cough, no hemoptysis, no wheezing, no chest congestion, no excessive phlegm production, no change in phlegm color - Gastrointestinal Gastrointestinal: as per HPI, dyspepsia, heartburn, other, no abdominal pain, no diarrhea, no hematemesis, no hematochezia, no melena, no nausea, no vomiting - Genitourinary Genitourinary ROS male: as per HPI - Musculoskeletal Musculoskeletal ROS IM: as per HPI, no numbness, no tingling - Integumentary Integumentary IM: as per HPI, no rash, no unusual bruising - Neurological Neurological ROS: as per HPI, no confusion, no convulsions, no focal weakness, no numbness, no tingling, no tremor(s) - Psychiatric Psychiatric: as per HPI - Endocrine Endocrine IM: as per HPI - Hematologic/Lymphatic Hematologic/Lymphatic: as per HPI, no easy bruising - Allergic/Immunologic Allergic/Immunologic: as per HPI - Constitutional Vitals: Temp Pulse Resp BP Pulse Ox 97.6 F 71 15 134/90 98 05/26/16 05:55 05/26/16 05:55 05/26/16 05:55 05/26/16 05:55 05/26/16 05:55 Vital Signs Temp Pulse Resp BP Pulse Ox 05/26/16 05:55 97.6 F 71 15 134/90 98 05/26/16 05:01 20 140/90 05/26/16 04:45 73 20 136/83 98 05/26/16 03:55 73 18 138/86 99 05/26/16 02:45 75 18 126/85 99 05/26/16 01:19 75 20 118/74 98 05/26/16 00:34 84 20 115/73 96 05/26/16 00:26 84 20 125/86 97 05/25/16 23:55 98 05/25/16 23:51 97.6 F 89 18 133/79 99 Intake and Output 05/25/16 05/25/16 05/26/16 15:59 23:59 07:59 Intake Total 1000 / 1000 Balance 1000 / 1000 Intake: IV Fluids 1000 / 1000 0.9 % Sodium Chloride 1, 1000 / 1000 000 ML @ 3750 mls/hr IVC .Q16M ONE Rx#:[id number] Other: Weight 56.699 kg 59.965 kg Blood Glucose* 75 Patient Weight 05/26/16 23:59 Weight 59.965 kg General appearance: Present: mild distress, A&O X 3, answers questions appropriately - Head Head exam: Present: atraumatic, normocephalic - Eye Eye exam: Present: EOMI, PERRL, conjuntiva pink, sclera anicteric Pupils: Present: normal accommodation, PERRL - ENT ENT exam: Present: mucous membranes moist, normal oropharynx - Neck Neck exam general surgery: Present: supple, trachea midline. Absent: lymphadenopathy - Respiratory Respiratory exam: Present: chest wall tenderness, decreased breath sounds. Absent: accessory muscle use, CTAB, rales, rhonchi, stridor, wheezes - Cardiovascular Cardiovascular exam: Present: distant heart sounds, RRR, +S1, +S2. Absent: diastolic murmur, gallop, rubs, systolic murmur - GI/Abdominal GI/Abdominal exam: Present: normal bowel sounds, soft, tenderness, no peritoneal signs. Absent: distended - Extremities Exam Extremities exam: Present: warm, radial pulses palpable and symetrical. Absent : calf tenderness, cyanotic, pedal edema - Neurological Exam Neurological exam: Present: alert, CN II-XII intact, oriented X3, no focal deficits. Absent: pronater drift, facial droop, speech deficit - Psychiatric Psychiatric exam: Present: normal affect, normal mood - Skin Skin exam: Present: dry, intact Internal Med - H&P Results - Labs CBC & Chem 7: 05/26/16 00:06 05/26/16 00:06 Labs: Short CBC 05/26/16 Range/Units 00:06 WBC 10.5 (4.3-11.1) K/mcL Hgb 9.8 L (12.9-16.9) g/dL Hct 30.8 L (37.5-50.1) % Plt Count 378 (140-400) K/mcL Neutrophils # 8.1 (1.6-8.9) K/mcL BMP 05/26/16 Range/Units 00:06 Sodium 137 (136-145) mEq/L Potassium 4.5 (3.5-4.5) mEq/L Chloride 108 (98-109) mEq/L Carbon Dioxide 24 (19-29) mEq/L BUN 11 (8-26) mg/dL Creatinine 0.82 (0.72-1.25) mg/dL Glucose 48 L (70-99) mg/dL Calcium 8.7 (8.6-10.8) mg/dL Cardiac Enzymes 05/26/16 05/26/16 Range/Units 03:38 00:06 Troponin I 0.02 0.02 (0-0.03) ng/mL Abnormal lab results RBC 3.59 M/mcL (4.19-5.50) L 05/26/16 00:06 Hgb 9.8 g/dL (12.9-16.9) L 05/26/16 00:06 Hct 30.8 % (37.5-50.1) L 05/26/16 00:06 MCH 27.3 pg (28.0-33.3) L 05/26/16 00:06 RDW 18.5 % (11.5-14.5) H 05/26/16 00:06 MPV 8.8 fL (9.4-12.4) L 05/26/16 00:06 Glucose 48 mg/dL (70-99) L 05/26/16 00:06 Laboratory Results WBC 10.5 K/mcL (4.3-11.1) 05/26/16 00:06 RBC 3.59 M/mcL (4.19-5.50) L 05/26/16 00:06 Hgb 9.8 g/dL (12.9-16.9) L 05/26/16 00:06 Hct 30.8 % (37.5-50.1) L 05/26/16 00:06 MCV 85.8 fL (83.0-100.0) 05/26/16 00:06 MCH 27.3 pg (28.0-33.3) L 05/26/16 00:06 MCHC 31.8 g/dL (31.6-35.5) 05/26/16 00:06 RDW 18.5 % (11.5-14.5) H 05/26/16 00:06 Plt Count 378 K/mcL (140-400) 05/26/16 00:06 MPV 8.8 fL (9.4-12.4) L 05/26/16 00:06 Immature Gran % 0.3 % (0-4) 05/26/16 00:06 Seg Neutrophils % 76.4 % 05/26/16 00:06 Lymphocytes % 14.0 % 05/26/16 00:06 Monocytes % 7.4 % 05/26/16 00:06 Eosinophils % 1.4 % 05/26/16 00:06 Basophils % 0.5 % 05/26/16 00:06 Neutrophils # 8.1 K/mcL (1.6-8.9) 05/26/16 00:06 Lymphocytes # 1.5 K/mcL (0.6-4.6) 05/26/16 00:06 Monocytes # 0.8 K/mcL (0.0-1.3) 05/26/16 00:06 Eosinophils # 0.2 K/mcL (0.0-0.6) 05/26/16 00:06 Basophils # 0.1 K/mcL (0.0-0.2) 05/26/16 00:06 PT 12.1 Seconds (9.4-12.1) 05/26/16 00:06 INR 1.1 05/26/16 00:06 APTT 31.2 Seconds (26.0-36.0) 05/26/16 00:06 Sodium 137 mEq/L (136-145) 05/26/16 00:06 Potassium 4.5 mEq/L (3.5-4.5) 05/26/16 00:06 Chloride 108 mEq/L (98-109) 05/26/16 00:06 Carbon Dioxide 24 mEq/L (19-29) 05/26/16 00:06 BUN 11 mg/dL (8-26) 05/26/16 00:06 Creatinine 0.82 mg/dL (0.72-1.25) 05/26/16 00:06 Est GFR ( Amer) > 60 (> 60) 05/26/16 00:06 Est GFR (Non-Af Amer) > 60 (> 60) 05/26/16 00:06 BUN/Creatinine Ratio 13 (6-26) 05/26/16 00:06 Glucose 48 mg/dL (70-99) L 05/26/16 00:06 POC Glucose 75 (58-89) 05/26/16 04:58 Calculated Osmolality 281 (280-300) 05/26/16 00:06 Calcium 8.7 mg/dL (8.6-10.8) 05/26/16 00:06 Troponin I 0.02 ng/mL (0-0.03) 05/26/16 03:38 B-Natriuretic Peptide 74 pg/mL (0-100) 05/26/16 00:06 Impressions Chest X-Ray 05/26/16 00:09 IMPRESSION: Negative portable chest. D/ / Denny Huddleston MD / Denny Huddleston MD Interpreting Provider: Denny Huddleston MD Abdomen CTA 05/26/16 00:55 IMPRESSION: 1. No aneurysm or dissection. 2. Esophagitis. 3. Moderate left renal artery stenosis. 4. Chronic pancreatitis. D/ / Denny Huddleston MD / Denny Huddleston MD Interpreting Provider: Denny Huddleston MD Chest CTA 05/26/16 00:55
[2016-05-26 06:36] LABS: VBG HCO3 22.1 mEq/L (21-27); VBG PH 7.29 pH Units (7.32-7.42)
[2016-05-26] MEDS: *HR* Enoxaparin 40 MG/0.4 ML SYRINGE SQ SCH (06:39)
[2016-05-26 06:40] LABS: INR 1.1; Prothrombin Time 12.3 Seconds (9.4-12.1)
[2016-05-26 06:43] LABS: Activated Partial Thrombo Time 31.5 Seconds (26.0-36.0)
[2016-05-26 06:52] LABS: Albumin 2.3 g/dL (3.5-5.0); Albumin/Globulin Ratio 0.5 (1.1-2.2); Amylase 55 Units/L (25-125); Bilirubin,Direct 0.6 mg/dL (0.0-0.5); Bilirubin,Indirect 0.2 mg/dL (0.0-1.2); Bilirubin,Total 0.8 mg/dL (0.2-1.2); Chol/HDL Ratio 3.2 (0-4.9); Globulin 4.8 g/dL (2.4-3.5); Lipase 8 Units/L (8-78); Magnesium 1.3 mg/dL (1.6-2.6); Phosphorous 3.4 mg/dL (2.3-4.7); Total Protein 7.1 g/dL (6.0-8.3)
[2016-05-26 06:53] LABS: Ethanol < 10 mg/dL (0-10)
[2016-05-26] MEDS: *HR* Morphine 2 MG/ML SYRINGE IVP PRN ×4 (06:54→22:23)
[2016-05-26 07:13] LABS: Thyroid Stimulating Hormone 9.871 mcIU/mL (0.350-4.840)
[2016-05-26 07:20] LABS: Hemoglobin A1C 6.2 %
[2016-05-26] MEDS: Insulin LISPRO 300 UNITS/3 ML VIAL SQ SCH ×4 (07:40→21:54)
[2016-05-26 07:45] LABS: Bilirubin,Urine Negative (Negative); Blood,Urine Negative (Negative); Clarity,Urine Clear (Clear); Color,Urine Yellow (Yellow); Glucose,Urine (UA) Normal (Normal); Ketones,Urine Negative (Negative); Leukocyte Esterase,Urine Negative (Negative); Nitrite,Urine Negative (Negative); Protein,Urine Negative (Neg-Trace); Specific Gravity,Urine > 1.030 (1.010-1.025); Urobilinogen,Urine Normal (Normal)
[2016-05-26] MEDS: Pantoprazole 40 MG VIAL IVP SCH ×2 (08:29→21:57)
[2016-05-26] MEDS: Aspirin 81 MG TAB.CHEW PO SCH (08:30)
[2016-05-26] MEDS: Nicotine 21 MG PATCH.TD24 TD SCH (08:31)
[2016-05-26] MEDS ORDERED: Pantoprazole 40 MG VIAL IVP SCH (09:00)
[2016-05-26 09:20] LABS: Amphetamine Screen,Urine Negative ng/mL (Cutoff=1000); Barbiturate Screen,Urine Negative ng/mL (Cutoff=200); Benzodiazepines Screen,Urine Positive ng/mL (Cutoff=200); Cannabinoid Screen,Urine Positive ng/mL (Cutoff = 50); Cocaine Screen,Urine Negative ng/mL (Cutoff= 300); Opiate Screen,Urine Positive ng/mL (Cutoff=300); Phencyclidine Screen,Urine Negative ng/mL (Cutoff=25)
--- NOTE | 2016-05-26 15:22 | Internal Med Progress Note ---
Date of Encounter: 05/26/16 Time of Encounter: 09:10 - Assessment and plan (1) Esophagitis Current Visit: Yes Status: Acute Assessment and plan: Patient reports long history of GERD. He has not been taking his medications due to cost. He also states he has not been taking his medications because his physician Rhea Reyes took him off them. He states that he is only been taking his simvastatin and aspirin. He reports epigastric pain with radiation to his right chest. Pain is worse with deep inspiration and movement. He reports difficulty swallowing for 2-3 years. He reports that Dr. Corine Reyes tends to all of his GI needs. He claims to be very close personal friends with him as well. Hemoglobin today is 9.8. We will trend. His recent extensive epistaxis requiring a transfusion. He is not taking any anticoagulants at this time. CT angiogram of the abdomen shows (2) HTN (hypertension) Current Visit: Yes Status: Chronic Assessment and plan: Blood pressure is well controlled. He says he has not been taking his home medications due to cost. He was not hypertensive on arrival. We will continue medications. Qualifiers: Hypertension type: unspecified secondary hypertension Qualified Code(s): I15.9 - Secondary hypertension, unspecified; I15 - Secondary hypertension (3) CAD (coronary artery disease) Current Visit: Yes Status: Chronic Assessment and plan: History of coronary artery disease, stent 3, AMI. Patient states that he has not been taking any vitamins medications due to cost. The only thing he has been taking is his simvastatin and aspirin. His blood pressure is well controlled as is his heart rate. Patient is followed by Dr. Brandon Reyes, tissue inserter Patient is experiencing epigastric pain with radiation to the right side of his chest. He says it is worse with deep inspiration and movement. It is tender to palpation. He denies any injury or change in routine that would be musculoskeletal pain. His troponins were negative 3. He is not anticoagulated due to recent epistaxis requiring a transfusion. Chest x-ray is negative. Chest CT EMG shows no aneurysm or dissection, esophagitis, moderate left renal artery stenosis, and chronic pancreatitis. 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 transplanted heart: [place] heart Associated angina: with unspecified angina Qualified Code(s): I25.119 - Atherosclerotic heart disease of [place] coronary artery with unspecified angina pectoris (4) Chest pain Current Visit: Yes Status: Acute Assessment and plan: Plan as above Qualifiers: Chest pain type: other chest pain Qualified Code(s): R07.89 - Other chest pain; R07.8 - Other chest pain (5) Chronic pancreatitis Current Visit: Yes Status: Chronic Assessment and plan: Patient reports midsternal chest pain with radiation to right side and into her right back. Transaminases are elevated. He reports pain 6 out of 10. Chest CTA and CT abdomen shows chronic pancreatitis. Clear liquid diet Pain medication as needed IV fluids Monitor labs Qualifiers: Pancreatitis type: unspecified pancreatitis type Qualified Code(s): K86.1 - Other chronic pancreatitis (6) Left renal artery stenosis Current Visit: Yes Status: Chronic Assessment and plan: Shown on CT angiogram chest x-ray. Patient may follow-up outpatient after discharge. (7) GERD (gastroesophageal reflux disease) Current Visit: Yes Status: Chronic Assessment and plan: Long history of GERD. He is off all of his medications due to cost. Both his CT angiogram O chest and CT abdomen showed esophagitis. He says that he cannot afford his Carafate, he has been restarted here. He is also on IV Protonix. We will continue to monitor his condition. Qualifiers: Esophagitis presence: with esophagitis Qualified Code(s): K21.0 - Gastro- esophageal reflux disease with esophagitis (8) Positive urine drug screen Current Visit: Yes Status: Acute Assessment and plan: Pt denies ETOH, recreational drugs, or smoking. He states that he is not taking any of his prescription medications other than Simvastatin and ASA. Initially he says that Dr. Pool took him off of everything, then he tells me, "'that [facility] took away my insurance." I discussed the results of the test with him and he steadfastly denies that any of the drugs were in his system, and that he says that he rode in a car with somebody who was smoking marijuana. Attempt nonnarcotic pain control while inpatient, narcotics only if needed. - Time Spent With Patient less than 15 minutes - Subjective Interval history: Patient resting quietly and dialyze him this morning. He arouses easily is alert and oriented. He reports epigastric pain radiating to the right side, it becomes worse with deep inspiration and movement. It is tender to palpation. He follows with Brandon Gonzalez for cardiology and Matthew Pool at [facility] for all of his GI problems. He says that he has had difficulty swallowing for 2-3 years. He has had a GI workup at [place], however he is unsure of the results. He says that he has only been taking his simvastatin and aspirin at home, initially due to his GI physician taking him off all of his medications. Later he says that "that [facility] took my insurance and now I cannot pay for my medicines." He denies any remote or recent history of alcoholism, recreational drug use, or smoking. His urine drug screen is positive for benzodiazepines, opiates, and marijuana. He is not sure how they got into his system. He has been placed back on PPI and Carafate and blood pressure medications while he is inpatient. Amylase and lipase are within normal limits, however his transaminases are all elevated. - Constitutional Vitals: Temp Pulse Resp BP Pulse Ox 97.8 F 62 16 106/68 100 05/26/16 15:15 05/26/16 15:15 05/26/16 15:15 05/26/16 15:15 05/26/16 15:15 General appearance: Present: mild distress, A&O X 3, answers questions appropriately - Head Head exam: Present: normal inspection - ENT ENT exam: Present: mucous membranes moist, normal exam - Neck Neck exam general surgery: Present: normal inspection. Absent: lymphadenopathy , tenderness - Respiratory Respiratory exam: Present: decreased breath sounds, CTAB. Absent: chest wall tenderness - Cardiovascular Cardiovascular exam: Present: RRR, +S1, +S2. Absent: diastolic murmur, systolic murmur - GI/Abdominal GI/Abdominal exam: Present: normal bowel sounds, tenderness. Absent: distended , hepatomegaly, splenomegaly - Extremities Exam Extremities exam: Present: normal inspection, warm, radial pulses palpable and symetrical. Absent: mottling, pedal edema, tenderness - Neurological Exam Neurological exam: Present: alert, normal gait. Absent: no focal deficits, facial droop, speech deficit Internal Medicine: Result - Labs CBC & Chem 7: 05/26/16 00:06 05/26/16 00:06 Labs: Cardiac Enzymes 05/26/16 Range/Units 06:28 Troponin I 0.02 (0-0.03) ng/mL Liver Function 05/26/16 Range/Units 06:28 Total Bilirubin 0.8 (0.2-1.2) mg/dL Direct Bilirubin 0.6 H (0.0-0.5) mg/dL AST 56 H (5-34) Units/L ALT 61 H (0-55) Units/L Alkaline Phosphatase 1559 H (38-126) Units/L Albumin 2.3 L (3.5-5.0) g/dL Urine 05/26/16 Range/Units 07:32 Urine Color Yellow (Yellow) Urine Clarity Clear (Clear) Urine pH 6.0 (5.0-8.0) pH Units Ur Specific [place] > 1.030 H (1.010-1.025) Urine Protein Negative (Neg-Trace) mg/dL Urine Glucose (UA) Normal (Normal) mg/dL - ABG Interpretation ABG results: PT/INR, D-dimer PT 12.3 Seconds (9.4-12.1) H 05/26/16 06:28 Consult Discharge Plan - Plan Referrals: Matthew Pool DO [Primary Care Provider] -
[2016-05-26] MEDS: Insulin DETEMIR 100 UNIT/ML X5UNITS SQ SCH (21:55)
[2016-05-27] MEDS: *HR* Morphine 2 MG/ML SYRINGE IVP PRN ×4 (00:28→21:01)
[2016-05-27] MEDS: 0.9 % Sodium Chloride 1,000 ML IVC SCH ×2 (00:39→18:24)
[2016-05-27 02:55] LABS: Basophils % 0.3 %; Eosinophils # 0.1 K/mcL (0.0-0.6); Eosinophils % 1.7 %; Hematocrit 27.5 % (37.5-50.1); Hemoglobin 8.4 g/dL (12.9-16.9); Immature Granulocytes % 0.3 % (0-4); Lymphocytes % 14.4 %; Mean Corpuscular HGB Conc 30.5 g/dL (31.6-35.5); Mean Corpuscular Hemoglobin 27.6 pg (28.0-33.3); Mean Corpuscular Volume 90.5 fL (83.0-100.0); Mean Platelet Volume 9.1 fL (9.4-12.4); Monocytes # 0.5 K/mcL (0.0-1.3); Monocytes % 7.3 %; Neutrophils # 5.4 K/mcL (1.6-8.9); Platelet Count 230 K/mcL (140-400); Red Blood Count 3.04 M/mcL (4.19-5.50); Red Cell Distribution Width 18.6 % (11.5-14.5)
[2016-05-27 03:11] LABS: BUN/Creatinine Ratio 11 (6-26); Blood Urea Nitrogen 9 mg/dL (8-26); Carbon Dioxide 21 mEq/L (19-29); Chloride 106 mEq/L (98-109); Glucose 225 mg/dL (70-99); Osmolality,Calculated 278 (280-300); Potassium 4.1 mEq/L (3.5-4.5); Sodium 131 mEq/L (136-145); eGFR For African Americans > 60 (> 60); eGFR For Non-African Americans > 60 (> 60)
[2016-05-27] MEDS: *HR* Enoxaparin 40 MG/0.4 ML SYRINGE SQ SCH (05:27)
[2016-05-27] MEDS: Insulin LISPRO 300 UNITS/3 ML VIAL SQ SCH ×4 (08:42→20:58)
[2016-05-27] MEDS: Pantoprazole 40 MG VIAL IVP SCH ×2 (08:42→20:59)
[2016-05-27] MEDS: Aspirin 81 MG TAB.CHEW PO SCH (08:42)
[2016-05-27] MEDS: Nicotine 21 MG PATCH.TD24 TD SCH (08:43)
[2016-05-27] MEDS ORDERED: *HR* OxyCODONE Immed Rel 5 MG TABLET PO PRN (15:16)
--- NOTE | 2016-05-27 15:31 | Internal Med Progress Note ---
Date of Encounter: 05/27/16 Time of Encounter: 11:00 - Assessment and plan (1) Esophagitis Current Visit: Yes Status: Acute Assessment and plan: Esophagitis per CT. Patient still reports 8 out of 10 epigastric pain today. He said his pain is worse with movement. I did order an echocardiogram since he has not had one this facility, and he has not had one in years to rule out cardiac etiology. Troponins were negative 3 initially on arrival an EKG was normal sinus. He is very tender in the epigastric area. He is on Protonix 40 mg IV daily and he is also on Carafate 1 g 3 times a day. He is getting adequate pain relief with morphine 2 mg IV. I have put in a GI consult for morning. Patient normally sees Dr. Pool at [facility] for any GI issues or surgical issues. Continue medications and IV fluids GI consult tomorrow (2) Anemia Current Visit: No Status: Acute Assessment and plan: Hemoglobin was 9.8 yesterday, today it is 8.4. Pt denies dark, tarry stools, but is guaiac positive this afternoon. I did not palpate internal or external hemorrhoids. Pt's color is sallow, lips are pink. I am also checking a urine. Recent history of epistaxis that required transfusion of PRBC, anticoagulant has been stopped. Pt has been getting IV fluids at 100ml/hour, so this could be dilutional, but given pt's past and guaiac positive exam today, I have consulted GI for evaluation tomorrow. Continue IV fluids at 75m/hour Monitor for bleeding Transfuse if Hgb < 7 Monitor VS and pt condition Labs in a.m. Qualifiers: Anemia type: unspecified type Qualified Code(s): D64.9 - Anemia, unspecified (3) HTN (hypertension) Current Visit: Yes Status: Chronic Assessment and plan: Chronic. Stable. Continue home medications Qualifiers: Hypertension type: unspecified secondary hypertension Qualified Code(s): I15.9 - Secondary hypertension, unspecified; I15 - Secondary hypertension (4) CAD (coronary artery disease) Current Visit: Yes Status: Chronic Assessment and plan: Positive history stent 3, AMI. Patient has not been taking any of his medications due to cost. He has been taking simvastatin and aspirin however. He states that today his pain became worse when he was up walking to the bathroom. I have ordered an echocardiogram for today. Chest x-ray was negative, chest CT shows no aneurysm or dissection but is positive for esophagitis, moderate left renal stenosis, and chronic pancreatitis. Care Director Rn vital signs and blood pressure Antihypertensives while in the hospital Monitor labs. Qualifiers: Coronary Disease-Associated Artery/Lesion type: council artery [place] vs. transplanted heart: council heart Associated angina: with unspecified angina Qualified Code(s): I25.119 - Atherosclerotic heart disease of council coronary artery with unspecified angina pectoris (5) Chest pain Current Visit: Yes Status: Acute Assessment and plan: Plan as above. Qualifiers: Chest pain type: other chest pain Qualified Code(s): R07.89 - Other chest pain; R07.8 - Other chest pain (6) Chronic pancreatitis Current Visit: Yes Status: Chronic Assessment and plan: Patient still reports midsternal chest pain with radiation just to the right side and into right back. His transaminases are elevated and today he reports 8 out of [address] and CT abdomen showed chronic pancreatitis. Pt denies n/v/d. Abd is soft and non-tender with BS present. Pt denies pain anywhere but epigastric area. He is able to handle regular diet. Morphine 2 mg IV every 6 hours when necessary pain IV fluids 75 ML's per hour The monitor labs Qualifiers: Pancreatitis type: unspecified pancreatitis type Qualified Code(s): K86.1 - Other chronic pancreatitis (7) Left renal artery stenosis Current Visit: Yes Status: Chronic Assessment and plan: Per CT angiogram chest. Vitals are within normal limits as are renal function labs. He will follow up outpatient after discharge. (8) GERD (gastroesophageal reflux disease) Current Visit: Yes Status: Chronic Assessment and plan: Chronic. Plan as above. Qualifiers: Esophagitis presence: with esophagitis Qualified Code(s): K21.0 - Gastro- esophageal reflux disease with esophagitis (9) Positive urine drug screen Current Visit: Yes Status: Acute Assessment and plan: Patient's urine drug screen was positive for opioids, benzodiazepines, and marijuana. Patient says the only prescriptions he is taking is simvastatin and aspirin. - Time Spent With Patient less than 15 minutes - Subjective Interval history: Patient was resting quietly in his room. He was examined at about 10:00 this morning. He says that his epigastric pain is about an 8 out of 10. His abdomen is soft, bowel sounds present. He is tender in epigastric area. He said that he felt a little short of breath and his pain became worse when he got up to walk today. I did order an echocardiogram. In regards to patient's drop in hemoglobin, he is guaiac positive. He denies any dark tarry stools or bryce blood. I also ordered a urine specimen. His urine is in the urinal at bedside and appears to be kelly color and clear. I will consult GI tomorrow since we do not have coverage on the weekend. - Constitutional Vitals: Temp Pulse Resp BP Pulse Ox 98.1 F 72 16 114/76 97 05/27/16 11:40 05/27/16 11:40 05/27/16 11:40 05/27/16 11:40 05/27/16 11:40 General appearance: Present: cooperative, mild distress, A&O X 3, pleasant, answers questions appropriately - Head Head exam: Present: normal inspection - Eye Eye exam: Present: normal appearance - ENT ENT exam: Present: mucous membranes moist, normal exam - Neck Neck exam general surgery: Present: normal inspection. Absent: lymphadenopathy , tenderness - Respiratory Respiratory exam: Present: CTAB. Absent: chest wall tenderness, rales, rhonchi , wheezes - Cardiovascular Cardiovascular exam: Present: RRR, +S1, +S2. Absent: diastolic murmur, systolic murmur - Rectal Rectal exam: Present: heme (+) stool, normal rectal tone. Absent: black stool, bloody stool, decreased rectal tone, fecal impaction, hemorrhoids, mass, tenderness - Extremities Exam Extremities exam: Present: normal capillary refill, warm, radial pulses palpable and symetrical. Absent: pedal edema, tenderness - Neurological Exam Neurological exam: Present: alert, oriented X3, no focal deficits. Absent: facial droop, speech deficit Internal Medicine: Result - Labs CBC & Chem 7: 05/27/16 02:41 05/27/16 02:41 Labs: Short CBC 05/27/16 Range/Units 02:41 WBC 7.0 (4.3-11.1) K/mcL Hgb 8.4 L (12.9-16.9) g/dL Hct 27.5 L (37.5-50.1) % Plt Count 230 (140-400) K/mcL Neutrophils # 5.4 (1.6-8.9) K/mcL BMP 05/27/16 02:41 Sodium 131 L Potassium 4.1 Chloride 106 Carbon Dioxide 21 BUN 9 Creatinine 0.82 Glucose 225 H Calcium 8.0 L - ABG Interpretation ABG results: PT/INR, D-dimer PT 12.3 Seconds (9.4-12.1) H 05/26/16 06:28 Consult Discharge Plan - Plan Referrals: Matthew Pool DO [Primary Care Provider] -
[2016-05-27 15:49] LABS: Bilirubin,Urine Negative (Negative); Blood,Urine Negative (Negative); Clarity,Urine Clear (Clear); Color,Urine Yellow (Yellow); Glucose,Urine (UA) 250 mg/dL (Normal); Ketones,Urine Negative (Negative); Leukocyte Esterase,Urine Negative (Negative); Nitrite,Urine Negative (Negative); Protein,Urine Negative (Neg-Trace); Urobilinogen,Urine Normal (Normal)
[2016-05-27] MEDS: Insulin DETEMIR 100 UNIT/ML X5UNITS SQ SCH (21:00)
[2016-05-28] MEDS: 0.9 % Sodium Chloride 1,000 ML IVC SCH ×3 (03:19→18:29)
[2016-05-28] MEDS: *HR* Morphine 2 MG/ML SYRINGE IVP PRN ×5 (03:44→21:21)
[2016-05-28 05:17] LABS: Basophils % 0.3 %; Eosinophils # 0.1 K/mcL (0.0-0.6); Eosinophils % 1.2 %; Hematocrit 28.6 % (37.5-50.1); Hemoglobin 9.4 g/dL (12.9-16.9); Immature Granulocytes % 0.4 % (0-4); Lymphocytes # 0.9 K/mcL (0.6-4.6); Lymphocytes % 9.9 %; Mean Corpuscular HGB Conc 32.9 g/dL (31.6-35.5); Mean Corpuscular Hemoglobin 27.8 pg (28.0-33.3); Mean Corpuscular Volume 84.6 fL (83.0-100.0); Mean Platelet Volume 9.7 fL (9.4-12.4); Monocytes # 0.8 K/mcL (0.0-1.3); Monocytes % 8.5 %; Neutrophils # 7.5 K/mcL (1.6-8.9); Platelet Count 271 K/mcL (140-400); Red Blood Count 3.38 M/mcL (4.19-5.50); Red Cell Distribution Width 17.8 % (11.5-14.5); Segmented Neutrophils % 79.7 %
[2016-05-28 05:33] LABS: BUN/Creatinine Ratio 9 (6-26); Blood Urea Nitrogen 7 mg/dL (8-26); Calcium 7.9 mg/dL (8.6-10.8); Carbon Dioxide 20 mEq/L (19-29); Chloride 104 mEq/L (98-109); Glucose 158 mg/dL (70-99); Osmolality,Calculated 277 (280-300); Potassium 3.9 mEq/L (3.5-4.5); Sodium 133 mEq/L (136-145); eGFR For African Americans > 60 (> 60); eGFR For Non-African Americans > 60 (> 60)
[2016-05-28] MEDS: *HR* Enoxaparin 40 MG/0.4 ML SYRINGE SQ SCH (06:12)
[2016-05-28] MEDS: Insulin LISPRO 300 UNITS/3 ML VIAL SQ SCH ×4 (07:34→21:24)
--- NOTE | 2016-05-28 09:03 | Electrocardiograph Report ---
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
[2016-05-28 09:51] LABS: Alanine Aminotransferase 57 Units/L (0-55); Albumin 2.1 g/dL (3.5-5.0); Albumin/Globulin Ratio 0.5 (1.1-2.2); Alkaline Phosphatase 1440 Units/L (38-126); Aspartate Amino Transferase 74 Units/L (5-34); Bilirubin,Direct 0.4 mg/dL (0.0-0.5); Bilirubin,Indirect 0.2 mg/dL (0.0-1.2); Bilirubin,Total 0.6 mg/dL (0.2-1.2); Globulin 4.5 g/dL (2.4-3.5); Total Protein 6.6 g/dL (6.0-8.3)
--- NOTE | 2016-05-28 10:33 | ECHO - Doppler Report ---
Echocardiogram Name: Jesús Cruz Date of Study: 05/28/2016 Date: 1950 Ht: 68.0 in Medical Record#: [id number] Age: 66 Wt: 134.0 lb Gender: Male BSA: 1.72 Order #: [id number] Location: [facility] Room #: 3B Reading Physician: Adamaris Warren DO Medical Technician Assistant: Carmela Ferguson RVT, [facility] Ordering Physician: Nadja Penaloza CNP Primary Physician: None Indications: Chest pain Impressions: LVEF 60%. Normal left ventricular size and systolic function. There is evidence of mild diastolic dysfunction of the left ventricle. Normal right ventricular size and function. No significant valvular dysfunction. No pulmonary hypertension. Left Ventricular Wall Motion: Rest Echo Findings All wall segments showed normal motion. Findings: Study Quality * Technically adequate exam. ECG Findings * Normal sinus rhythm. Left Ventricle * LVEF 60%. * Normal LV chamber size, wall thickness and function. * Mild left ventricular diastolic dysfunction. Aorta * Normally sized aortic root. Left Atrium * Normal left atrial size. Mitral Valve * No mitral stenosis. * Mildly calcified mitral valve leaflets. * Trace mitral regurgitation. Tricuspid Valve * Tricuspid valve not well visualized. * Trace tricuspid regurgitation. * Estimated RA pressure is 3 mmHg. * Estimated RVSP is 15 mmHg. Pulmonic Valve * Pulmonic valve is not well visualized. * No pulmonic stenosis. * No pulmonic regurgitation. Pulmonary Artery * Pulmonary artery not well visualized. Aortic Valve * Aortic valve not well visualized. * No aortic stenosis. * No aortic regurgitation. Right Ventricle * Normal right ventricular structure and function. Right Atrium * Normal right atrial size. Pericardium * There is no pericardial effusion present. Interatrial Septum * No evidence of PFO by color Doppler. IVC * Normal IVC dimensions and inspiratory collapse. History Hypertension Diabetes Hypercholesteremia History of CAD/PTCA Myocardial Infarction Measurements: BP: 128/ 81 2D Normal Values RVIDd: 3.00 cm <2.7 cm IVSd: 1.00 cm 0.6 - 1.0 cm LVIDd: 5.00 cm 3.7 - 5.6 cm LVPWd: .90 cm 0.6 - 1.1 cm LVIDs: 2.70 cm 1.5 - 3.6 cm AO: 2.60 cm < 4.0 cm LA: 2.90 cm 2.0 - 4.0cm %FS: 46.00 cm >25 % LA volume: 48 Mitral Valve Peak E:.73 m/sec Peak A:.98 m/sec E/A Ratio:0.7 Tricuspid Valve TV Regurg Peak Grad: 12.00mmHg TV Regurg Peak Negro: 1.73m/sec Updated by Adamaris Warren on 05/28/2016 10:27:14 AM electronically signed on 05/28/2016 10:27:50 AM with status of Final Wall Motion Infante: 1=Normal, 2=Hypokinesis, 3=Akinesis, 4=Dyskinesis, 5=Aneurysmal, 6=Hyperkinetic, X=Not Visualized (Blank)=Missing
[2016-05-28] MEDS: Pantoprazole 40 MG VIAL IVP SCH ×2 (10:38→21:22)
[2016-05-28] MEDS: Nicotine 21 MG PATCH.TD24 TD SCH (10:39)
--- NOTE | 2016-05-28 12:16 | Gastroenterology Consult Note ---
<Rafy Gregg - Last Filed: 05/28/16 12:14> Date of Encounter: 05/28/16 Time of Encounter: 10:55 - Assessment and plan (1) Elevated LFTs Current Visit: Yes Status: Acute Assessment and plan: Check hepatic panel and MRCP today. (2) Anemia Current Visit: No Status: Acute Assessment and plan: Hgb stable. Hgb 9.8 on admission and 9.4 today. Continue to monitor CBC and transfuse PRBC as needed. Plan for EGD tomorrow. Keep NPO at midnight. Qualifiers: Anemia type: unspecified type Qualified Code(s): D64.9 - Anemia, unspecified (3) Chronic pancreatitis Current Visit: Yes Status: Chronic Assessment and plan: LFTs and alk phos elevated. Check hepatic profile and MRCP today to evaluate for stricture. F/u as outpatient with Dr. Pool. Qualifiers: Pancreatitis type: unspecified pancreatitis type Qualified Code(s): K86.1 - Other chronic pancreatitis (4) Esophagitis Current Visit: Yes Status: Acute Assessment and plan: CTA abd with esophagitis, chronic pancreatitis. He has not been taking his GERD medications due to cost. Continue PPI and complete EGD tomorrow. NPO at midnight. - Time Spent With Patient Total time spent is greater than 50% in coordination of care (as documented) at patient's floor/unit and/or counseling patient: GI History of Present Illness - Data of Consult Patient: known to practice within the last 3 years Consult date: 05/28/16 Requesting Physician: Nadja Penaloza CNP - Consult Narrative Reason for consult: anemia, chronic pancreatitis History of present illness: Mr. Cruz is a 66 year old male with PMHx of COPD, CAD, DM, GERD, GI bleed, HLD , HTN, chronic pancreatitis, [place], who presented with substernal chest pain that started 6 hours prior to arrival. EKG in ED was stable. Patient had recently been admitted May 22 with acute blood loss anemia secondary to profound epistaxis while on chronic anticoagulation Brilinta, which was stopped. He complains of epigastric abdominal pain which is tender to palpation. He reports dysphagia for the past 2-3 years. He had GI workup with Dr. Pool at [facility]. CTA abd with esophagitis, chronic pancreatitis. He has not been taking his GERD medications due to cost. He also states he has not been taking his medications because his physician Lisette Reyes took him off them. Procedures: EGD/Cscope 5 months ago, Dr. Pool: "ok" per pt report. EUS 10/03/2013 Dr. Brito: severe chronic pancreatitis, dilated CBD, no stone, ? stricture. EGD 09/10/2013 Dr. Brito: Esophageal stricture (dilated), nodule, ulcerative esophagitis, no Ocampo'sesophagus. NSAIDs: ASA Anticoagulation: None Past Med Surg Social Fam HX - Past Medical History Medical history: arthritis, COPD, coronary artery disease, diabetes, GERD, GI bleed, hyperlipidemia, hypertension, liver disease (Chronic pancreatitis.), myocardial infarction, thyroid disease, other (Irritable bowel syndrome. Diarrhea associated with pancreatic insufficiency) Psychiatric history: anxiety, depression, other - Past Surgical History Surgical History: non-contributory, angioplasty/stent, cholecystectomy, other - Social History Smoking Status: Former smoker Smokeless Tobacco Status: No Alcohol use: none Drug use: none, other - Family History Sister Hx Family Cardiac Disorders: Yes (CAD) Father Adopted: [place]: Selena Cruz Family Member Ethnicity: Non- Living Status: Age at : 52 Cause of : anyurism Hx Family Cardiac Disorders: No Hx Family Respiratory Disorders: No Hx Family Cancer: No Hx Family GI Disorders: Yes (AAA) Hx Family Genitourinary Disorders: No Hx Family Endocrine Disorder: No Hx Family Musculoskeletal Disorders: No Hx Family Neuromuscular Disorders: No Hx Family Neurologic Disorders: No Hx Family HEENT Disorders: No Hx Family Autoimmune Disorders: No Hx Family Reproductive Disorders: No Hx Family Psychosocial Disorders: No Hx Family Medical Disorders: No - Gastrointestinal Gastrointestinal: Present: as per HPI - Constitutional Constitutional: as per HPI - EENT Eyes: as per HPI Ears: Present: as per HPI Nose, mouth and throat: Present: as per HPI - Cardiovascular Cardiovascular ROS: Present: as per HPI - Respiratory Respiratory IM: Present: as per HPI - Genitourinary Genitourinary: Absent: change in color, Urinary frequency - Neurological ROS Neurological GI: Present: as per HPI - Hematologic/Lymphatic Hematologic/Lymphatic pediatric: Present: as per HPI - Musculoskeletal Musculoskeletal ROS GI: Present: as per HPI - Integumentary Integumentary GI: Present: as per HPI - Psychiatric ROS Psychiatric GI: Present: as per HPI - Endocrine Endocrine IM: Present: as per HPI - Constitutional Vitals: Temp Pulse Resp BP Pulse Ox 98.2 F 74 16 128/81 98 05/28/16 11:16 05/28/16 11:16 05/28/16 11:16 05/28/16 07:13 05/28/16 11:16 General appearance: Present: cooperative, A&O X 3, no acute distress, answers questions appropriately - Head Head exam: Present: atraumatic, normocephalic - Eye Eye exam: Present: normal appearance, sclera anicteric - ENT ENT exam: Present: mucous membranes dry - Neck Neck exam general surgery: Present: normal inspection, trachea midline - Respiratory Respiratory exam: Present: CTAB. Absent: rales, rhonchi, wheezes - Cardiovascular Cardiovascular exam: Present: RRR, +S1, +S2 - GI/Abdominal GI/Abdominal exam: Present: soft, no peritoneal signs. Absent: distended, firm , guarding, tenderness - Rectal Rectal exam: Present: deferred - Extremities Exam Extremities exam: Present: warm - Neurological Exam Neurological exam: Present: no focal deficits - Psychiatric Psychiatric exam: Present: normal affect, normal mood - Skin Skin exam: Present: dry, intact, normal color, warm Results - Labs CBC & Chem 7: 05/28/16 04:32 05/28/16 04:32 Labs: Last Result Calcium 7.9 mg/dL (8.6-10.8) L 05/28/16 04:32 Troponin I 0.02 ng/mL (0-0.03) 05/26/16 06:28 Triglycerides 67 mg/dL (< 150) 05/26/16 06:28 Urine Opiates Screen Positive ng/mL (Vhrzph=977) H 05/26/16 07:32 Entire Visit Hgb 9.4 g/dL (12.9-16.9) L 05/28/16 04:32 Hct 28.6 % (37.5-50.1) L 05/28/16 04:32 PT 12.3 Seconds (9.4-12.1) H 05/26/16 06:28 Total Bilirubin 0.6 mg/dL (0.2-1.2) 05/28/16 04:32 AST 74 Units/L (5-34) H 05/28/16 04:32 ALT 57 Units/L (0-55) H 05/28/16 04:32 Ammonia 31 mcmol/L (18-72) 05/26/16 06:28 Amylase 55 Units/L (25-125) 05/26/16 06:28 Lipase 8 Units/L (8-78) 05/26/16 06:28 - ABG ABG results: PT/INR, D-dimer PT 12.3 Seconds (9.4-12.1) H 05/26/16 06:28 Consult Discharge Plan - Plan Referrals: Matthew Pool DO [Primary Care Provider] - <Sherry Brito - Last Filed: 05/28/16 17:42> Date of Encounter: 05/28/16 Time of Encounter: 14:00 - Time Spent With Patient Total time spent is greater than 50% in coordination of care (as documented) at patient's floor/unit and/or counseling patient: GI History of Present Illness - Data of Consult Requesting Physician: Nadja Penaloza CNP - Consult Narrative History of present illness: Mr. Cruz is a 66 year old male - Constitutional Vitals: Temp Pulse Resp BP Pulse Ox 97.9 F 67 16 103/66 98 05/28/16 14:48 05/28/16 14:48 05/28/16 14:48 05/28/16 14:48 05/28/16 14:48 Results - Labs CBC & Chem 7: 05/28/16 04:32 05/28/16 04:32 Labs: Last Result Calcium 7.9 mg/dL (8.6-10.8) L 05/28/16 04:32 Troponin I 0.02 ng/mL (0-0.03) 05/26/16 06:28 Triglycerides 67 mg/dL (< 150) 05/26/16 06:28 Urine Opiates Screen Positive ng/mL (Nmcisg=129) H 05/26/16 07:32 Entire Visit Hgb 9.4 g/dL (12.9-16.9) L 05/28/16 04:32 Hct 28.6 % (37.5-50.1) L 05/28/16 04:32 PT 12.3 Seconds (9.4-12.1) H 05/26/16 06:28 Total Bilirubin 0.6 mg/dL (0.2-1.2) 05/28/16 04:32 AST 74 Units/L (5-34) H 05/28/16 04:32 ALT 57 Units/L (0-55) H 05/28/16 04:32 Ammonia 31 mcmol/L (18-72) 05/26/16 06:28 Amylase 55 Units/L (25-125) 05/26/16 06:28 Lipase 8 Units/L (8-78) 05/26/16 06:28 - ABG ABG results: PT/INR, D-dimer PT 12.3 Seconds (9.4-12.1) H 05/26/16 06:28 - Attending Attestation I examined this patient and my medical decision-making was reviewed with the ROCK SPLITTER/PA/Advanced Practice Nurse/Resident Physician. I agree with the documented findings, disposition and treatment plan as described except to the extent set forth below. Pt with abn thickening of esophagus : EGD am Elevated AlKphos; MRCP to r/o CBd stricture
--- NOTE | 2016-05-28 18:03 | Internal Med Progress Note ---
Date of Encounter: 05/28/16 Time of Encounter: 10:35 - Assessment and plan (1) Esophagitis Current Visit: Yes Status: Acute Assessment and plan: CTA abdomen showed esophagitis and chronic pancreatitis. Patient has not been taking his GERD medicine due to cost. Patient was evaluated by GI today. He will be nothing by mouth after midnight for an EGD in the morning. Abdomen is flat, soft, tender in epigastric area. Continue pain medication, PPI, and Carafate. (2) Anemia Current Visit: No Status: Acute Assessment and plan: Hemoglobin 9.4 today. Guaiac was positive yesterday Continue to monitor. Labs in the morning Transfuse if hemoglobin is less than 8 and patient is symptomatic. Qualifiers: Anemia type: unspecified type Qualified Code(s): D64.9 - Anemia, unspecified (3) HTN (hypertension) Current Visit: Yes Status: Chronic Assessment and plan: Patient has been normotensive today. Continue to monitor Vital signs per protocol Qualifiers: Hypertension type: unspecified secondary hypertension Qualified Code(s): I15.9 - Secondary hypertension, unspecified; I15 - Secondary hypertension (4) CAD (coronary artery disease) Current Visit: Yes Status: Chronic Assessment and plan: Positive history stent 3, AMI. Patient has not been taking any of his medications due to cost. He has been taking simvastatin and aspirin only Echo done today. LVEF 60%. Normal systolic function, evidence of mild diastolic dysfunction. No pulmonary hypertension and no significant valvular dysfunction. Chest x-ray was negative, chest CT shows no aneurysm or dissection but is positive for esophagitis, moderate left renal stenosis, and chronic pancreatitis. 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 Qualifiers: Coronary Disease-Associated Artery/Lesion type: [place] artery [place] vs. transplanted heart: [place] heart Associated angina: with unspecified angina Qualified Code(s): I25.119 - Atherosclerotic heart disease of [place] coronary artery with unspecified angina pectoris (5) Chest pain Current Visit: Yes Status: Acute Assessment and plan: Patient describes more epigastric pain. Abdomen is tender to palpation pain is almost a constant 8 out of 10. Plan as above Qualifiers: Chest pain type: other chest pain Qualified Code(s): R07.89 - Other chest pain; R07.8 - Other chest pain (6) Chronic pancreatitis Current Visit: Yes Status: Chronic Assessment and plan: Per CT. GI is following LFTs and alk phosphatase are elevated. Hepatic panel and MRCP ordered. Patient will follow up outpatient with Dr. Pool. Qualifiers: Pancreatitis type: unspecified pancreatitis type Qualified Code(s): K86.1 - Other chronic pancreatitis (7) Left renal artery stenosis Current Visit: Yes Status: Chronic Assessment and plan: Patient follow-up outpatient after discharge with nephrology. (8) GERD (gastroesophageal reflux disease) Current Visit: Yes Status: Chronic Assessment and plan: Patient has not been taking medications. Social work to help with medications on discharge Continue home medications GI following EGD tomorrow Qualifiers: Esophagitis presence: with esophagitis Qualified Code(s): K21.0 - Gastro- esophageal reflux disease with esophagitis (9) Positive urine drug screen Current Visit: Yes Status: Acute - Time Spent With Patient less than 15 minutes - Subjective Interval history: Patient denies much change in condition. He still rates epigastric pain 8 out of 10. He is up and ambulatory in the room cleaning, going to the bathroom. His abdomen is flat nontender except in epigastric area, bowel sounds are present. He was seen by GI today. He also had an echocardiogram today He will have an EGD tomorrow. He is nothing by mouth after midnight. - Constitutional Vitals: Temp Pulse Resp BP Pulse Ox 97.9 F 67 16 103/66 98 05/28/16 14:48 05/28/16 14:48 05/28/16 14:48 05/28/16 14:48 05/28/16 14:48 General appearance: Present: cooperative, mild distress, A&O X 3, pleasant, answers questions appropriately - Eye Eye exam: Present: normal appearance, conjuntiva pink - ENT ENT exam: Present: mucous membranes moist, normal exam - Neck Neck exam general surgery: Present: normal inspection. Absent: lymphadenopathy , tenderness - Respiratory Respiratory exam: Absent: rales, respiratory distress, rhonchi, stridor, wheezes - Cardiovascular Cardiovascular exam: Present: RRR, +S1. Absent: diastolic murmur, systolic murmur - GI/Abdominal GI/Abdominal exam: Present: normal bowel sounds, soft, tenderness. Absent: distended, hepatomegaly, rigid - Extremities Exam Extremities exam: Present: full ROM, normal capillary refill, normal inspection , warm, radial pulses palpable and symetrical. Absent: pedal edema, tenderness - Neurological Exam Neurological exam: Present: alert, oriented X3, no focal deficits. Absent: facial droop, speech deficit Internal Medicine: Result - Labs CBC & Chem 7: 05/28/16 04:32 05/28/16 04:32 Labs: Short CBC 05/28/16 Range/Units 04:32 WBC 9.5 (4.3-11.1) K/mcL Hgb 9.4 L (12.9-16.9) g/dL Hct 28.6 L (37.5-50.1) % Plt Count 271 (140-400) K/mcL Neutrophils # 7.5 (1.6-8.9) K/mcL BMP 05/28/16 04:32 Sodium 133 L Potassium 3.9 Chloride 104 Carbon Dioxide 20 BUN 7 L Creatinine 0.76 Glucose 158 H Calcium 7.9 L Liver Function 05/28/16 Range/Units 04:32 Total Bilirubin 0.6 (0.2-1.2) mg/dL Direct Bilirubin 0.4 (0.0-0.5) mg/dL AST 74 H (5-34) Units/L ALT 57 H (0-55) Units/L Alkaline Phosphatase 1440 H (38-126) Units/L Albumin 2.1 L (3.5-5.0) g/dL - ABG Interpretation ABG results: PT/INR, D-dimer PT 12.3 Seconds (9.4-12.1) H 05/26/16 06:28 Consult Discharge Plan - Plan Referrals: Matthew Pool DO [Primary Care Provider] -
[2016-05-28] MEDS: Insulin DETEMIR 100 UNIT/ML X5UNITS SQ SCH (21:22)
[2016-05-29] MEDS: *HR* Morphine 2 MG/ML SYRINGE IVP PRN ×6 (03:08→23:13)
[2016-05-29 05:27] LABS: Basophils % 0.3 %; Eosinophils # 0.1 K/mcL (0.0-0.6); Eosinophils % 1.5 %; Hematocrit 26.8 % (37.5-50.1); Hemoglobin 8.8 g/dL (12.9-16.9); Immature Granulocytes % 0.3 % (0-4); Lymphocytes # 0.9 K/mcL (0.6-4.6); Lymphocytes % 13.7 %; Mean Corpuscular HGB Conc 32.8 g/dL (31.6-35.5); Mean Corpuscular Hemoglobin 27.6 pg (28.0-33.3); Mean Platelet Volume 9.8 fL (9.4-12.4); Monocytes # 0.6 K/mcL (0.0-1.3); Monocytes % 8.6 %; Neutrophils # 5.1 K/mcL (1.6-8.9); Platelet Count 253 K/mcL (140-400); Red Blood Count 3.19 M/mcL (4.19-5.50); Red Cell Distribution Width 17.5 % (11.5-14.5); Segmented Neutrophils % 75.6 %
[2016-05-29 05:30] LABS: BUN/Creatinine Ratio 10 (6-26); Blood Urea Nitrogen 8 mg/dL (8-26); Carbon Dioxide 22 mEq/L (19-29); Chloride 104 mEq/L (98-109); Glucose 162 mg/dL (70-99); Osmolality,Calculated 276 (280-300); Potassium 3.8 mEq/L (3.5-4.5); Sodium 132 mEq/L (136-145); eGFR For African Americans > 60 (> 60); eGFR For Non-African Americans > 60 (> 60)
[2016-05-29] MEDS: 0.9 % Sodium Chloride 1,000 ML IVC SCH ×3 (05:55→13:01)
[2016-05-29] MEDS: Insulin LISPRO 300 UNITS/3 ML VIAL SQ SCH ×4 (08:18→21:51)
[2016-05-29] MEDS: Pantoprazole 40 MG VIAL IVP SCH ×2 (08:28→21:35)
[2016-05-29] MEDS: Nicotine 21 MG PATCH.TD24 TD SCH (08:28)
[2016-05-29] MEDS ORDERED: *HR* Propofol 500 MG/50 ML BOTTLE IVC ONE (09:59)
[2016-05-29 11:08] LABS: Triiodothyronine (T3) Free 1.49 pg/mL (1.71-3.71)
--- NOTE | 2016-05-29 12:51 | Anesthesia Evaluation PreOp ---
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 chemical exposure (flouride)) Anesthesia History: No Prior Anesthetic Complications, Past Anesthesia Alcohol Use: none Drug use: none, other Medications and Allergies Diazepam [Valium] 10 mg PO BID PRN 09/02/15 [History] Insulin DETEMIR [Levemir Flextouch] 15 unit SQ BID 05/22/16 [History] Insulin Human Regular [HumuLIN R] 10 unit IJ TID 05/22/16 [History] Levothyroxine Sodium [Levoxyl] 150 mcg PO DAILY 05/22/16 [History] Simvastatin [Zocor] 20 mg PO HS 05/22/16 [History] Aspirin 81 mg PO DAILY 05/26/16 [History] Allergies dicyclomine [From Bentyl] Allergy (Verified 05/25/16 23:55) See Comments - Meds/Allergy Pre-op Review Medications Reviewed: Yes Allergies Reviewed: Yes Beta Blockers on Current Med List: No Anesthesia Results - Labs 05/29/16 04:21 05/29/16 04:21 - Imaging EKG: report reviewed (05/26/2016 SR, low QRS voltage in extremity leads, probable inferior infarct) Additional studies: 05/28/2016 Echo LVEF 60% mild LV diastolic dysfunction no significant valvular dysfunction Anesthesia Exam Vital Signs/O2 Sat, Most Current Temp Pulse Resp BP Pulse Ox 97.9 F 65 18 110/62 98 05/29/16 10:43 05/29/16 10:43 05/29/16 10:43 05/29/16 10:43 05/29/16 10:43 Blood glucose: 144 Height: 5'8''/1.73 m Weight: 141 lbs/64.138 kg NPO (# of Hours): 8 Pain Scale: 0 Pain Scale Used: Numeric (1 - 10) - HEENT Pupil (Motor): EOMI Mallampati: II Teeth: Missing, Poor dentition Oral Opening: Greater than 3 - MACHINE PACKAGING TECHNICIAN LOC: Oriented MACHINE PACKAGING TECHNICIAN Motor: Normal RUE, Normal LUE, Normal RLE, Normal LLE, Normal Face MACHINE PACKAGING TECHNICIAN Sensory: Normal: RUE, LUE, RLE, LLE, Face - Cardiac Rhythm: Regular Murmur: None - Pulmonary Breath Sounds: bilateral Clear Respiratory Effort: Symmetrical Anesthesia Assess/Plan ASA Score: 3 Modified Gal Scale for Level of Consciousness: Cooperative, oriented, and tranquil Anesthetic Plan: MAC Monitoring Plan: Standard Monitors
--- NOTE | 2016-05-29 14:19 | Anesthesia Evaluation Post Op ---
Date of Encounter: 05/29/16 Time of Encounter: 14:19 - Vital Signs Vital Signs: Vital Signs/O2 Sat, Most Current Temp Pulse Resp BP Pulse Ox 97.9 F 61 16 92/48 96 05/29/16 10:43 05/29/16 13:35 05/29/16 13:35 05/29/16 13:35 05/29/16 13:35 - Lungs Lungs: Clear Ascult./Percussion - Airway Airway: Non-obstructed - Cardiovascular Regular Rate - Mental Status Mental Status: Alert & Oriented, Answers Appropriately - Pain Pain Scale: 0 - Nausea Vomiting Nausea Vomiting: Not Present - Hydration Hydration: NPO, Has not voided - Discharge PostOp Status: Transfer Patient to floor
--- NOTE | 2016-05-29 14:55 | Internal Med Progress Note ---
Date of Encounter: 05/29/16 Time of Encounter: 09:30 - Assessment and plan (1) Chest pain Current Visit: Yes Status: Acute Assessment and plan: Patient describes more epigastric pain. Chest x-ray unremarkable. Troponin negative 3. Low suspicion for ACS. Qualifiers: Chest pain type: other chest pain Qualified Code(s): R07.89 - Other chest pain; R07.8 - Other chest pain (2) Esophagitis Current Visit: Yes Status: Suspected Assessment and plan: CTA abdomen showed esophagitis and chronic pancreatitis. Patient has not been taking his GERD medicine due to cost. EGD later today. Patient is requiring regular doses of IV pain medication, dosing and frequency increased at this time. (3) Anemia Current Visit: No Status: Chronic Assessment and plan: Acute on chronic since the beginning of this month. He was seen on May 19 with a chief complaint of two-week history of a nosebleed. He was transfused with 2 units of packed red blood cells since that admission and has stopped taking his Brilinta. He has essentially remained hemodynamically stable since that time however slight decrease over the last couple weeks. His guaiac was positive. Likely acute on chronic blood loss anemia. No indication for transfusion at this time, we will trend. Qualifiers: Anemia type: other cause Other causes of anemia: other cause, not classified Qualified Code(s): D64.89 - Other specified anemias (4) HTN (hypertension) Current Visit: Yes Status: Chronic Assessment and plan: It does not appear as if this patient is on any antihypertensive medications at home. He has been started on low-dose lisinopril, carvedilol and has Lopressor as needed IV. His blood pressure has been trending low, will discontinue lisinopril and monitor his response. He is currently normotensive. We will continue to trend. Qualifiers: Hypertension type: unspecified secondary hypertension Qualified Code(s): I15.9 - Secondary hypertension, unspecified; I15 - Secondary hypertension (5) CAD (coronary artery disease) Current Visit: Yes Status: Chronic Assessment and plan: Patient currently denies chest pain. Chest x-ray negative. Chest CT consistent with esophagitis. EGD today per GI. Qualifiers: Coronary Disease-Associated Artery/Lesion type: [place] artery [place] vs. transplanted heart: [place] heart Associated angina: with unspecified angina Qualified Code(s): I25.119 - Atherosclerotic heart disease of [place] coronary artery with unspecified angina pectoris (6) Diabetes mellitus Current Visit: Yes Status: Chronic Assessment and plan: Controlled with an A1c of 6.2%. Continue sliding scale while admitted. Of note , patient was mildly hypoglycemic prior to his EGD, treated symptomatically. We will trend. 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 LFTs stable. GI is following Patient will follow up outpatient with Dr. Pool. ITS Impressions Abdomen CTA 05/26/16 00:55 IMPRESSION: 1. No aneurysm or dissection. 2. Esophagitis. 3. Moderate left renal artery stenosis. 4. Chronic pancreatitis. D/ / Denny Huddleston MD / Denny Huddleston MD Interpreting Provider: Denny Huddleston MD Chest CTA 05/26/16 00:55 IMPRESSION: 1. No aneurysm or dissection. 2. Esophagitis. 3. Moderate left renal artery stenosis. 4. Chronic pancreatitis. D/ / Denny Huddleston MD / Denny Huddleston MD Interpreting Provider: Denny Huddleston MD Abdomen MRI 05/28/16 10:00 IMPRESSION: 1. Again noted is abrupt termination of the pancreatic duct and common bile duct at the level of the pancreatic head with pancreatic duct dilation and moderate intra and extrahepatic biliary dilation. Overall, the findings are similar to prior MR from 09/14/2013. There is also heterogeneous slightly increased T2 signal within the pancreatic head. An underlying pancreatic neoplasm cannot be excluded although findings could be related to fibrosis from chronic pancreatitis. Recommend further evaluation with ERCP and tissue sampling if this has not already been done. 2. Sequela of chronic pancreatitis. Although the calcifications are not well seen on today's study. 3. Trace ascites and mesenteric edema. D/ / 05/28/2016 19:29:05 Kristen Christian MD / michael Interpreting Provider: Kristen Christian MD Qualifiers: Pancreatitis type: unspecified pancreatitis type Qualified Code(s): K86.1 - Other chronic pancreatitis (8) Left renal artery stenosis Current Visit: Yes Status: Chronic Assessment and plan: Patient follow-up outpatient after discharge with nephrology. Renal functioning and blood pressure stable. 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 Plan is for EGD later today. GI on board. Qualifiers: Esophagitis presence: with esophagitis Qualified Code(s): K21.0 - Gastro- esophageal reflux disease with esophagitis (10) Positive urine drug screen Current Visit: Yes Status: Acute Assessment and plan: Patient's urine drug screen was positive for opioids, benzodiazepines, and marijuana. Patient says the only prescriptions he is taking is simvastatin and aspirin. (11) Elevated LFTs Current Visit: Yes Status: Acute Assessment and plan: Stable, we will continue to trend. EGD later today. Continue with pain control. Of note, patient is requiring regular doses of IV pain medication. - Subjective Interval history: Patient seen and examined. On examination, patient resting supine in bed. Patient complaining of severe epigastric abdominal pain and states that he is hungry. - Constitutional Vitals: Temp Pulse Resp BP Pulse Ox 97.5 F L 73 18 119/79 92 05/29/16 14:37 05/29/16 14:37 05/29/16 14:37 05/29/16 14:37 05/29/16 14:37 General appearance: Present: cooperative, A&O X 3, pleasant, no acute distress, answers questions appropriately - Head Head exam: Present: atraumatic, normocephalic - Eye Eye exam: Present: PERRL, conjuntiva pink, sclera anicteric Pupils: Present: PERRL - Neck Neck exam general surgery: Present: supple, trachea midline. Absent: lymphadenopathy - Respiratory Respiratory exam: Present: decreased breath sounds. Absent: accessory muscle use, rales, respiratory distress, rhonchi, wheezes - Cardiovascular Cardiovascular exam: Present: RRR, +S1, +S2. Absent: diastolic murmur, gallop, rubs, systolic murmur - GI/Abdominal GI/Abdominal exam: Present: normal bowel sounds, soft, tenderness, no peritoneal signs. Absent: distended - Extremities Exam Extremities exam: Present: warm, radial pulses palpable and symetrical. Absent : calf tenderness, cyanotic, pedal edema - Neurological Exam Neurological exam: Present: alert, CN II-XII intact, oriented X3, no focal deficits, strengths equal and symetr throughout. Absent: pronater drift, facial droop, speech deficit - Skin Skin exam: Present: dry, intact, pallor, warm Internal Medicine: Result - Labs CBC & Chem 7: 05/29/16 04:21 05/29/16 04:21 Labs: Short CBC 05/29/16 Range/Units 04:21 WBC 6.8 (4.3-11.1) K/mcL Hgb 8.8 L (12.9-16.9) g/dL Hct 26.8 L (37.5-50.1) % Plt Count 253 (140-400) K/mcL Neutrophils # 5.1 (1.6-8.9) K/mcL BMP 05/29/16 04:21 Sodium 132 L Potassium 3.8 Chloride 104 Carbon Dioxide 22 BUN 8 Creatinine 0.77 Glucose 162 H Calcium 8.0 L - ABG Interpretation ABG results: PT/INR, D-dimer PT 12.3 Seconds (9.4-12.1) H 05/26/16 06:28 - Impressions Impressions Abdomen MRI 05/28/16 10:00 IMPRESSION: 1. Again noted is abrupt termination of the pancreatic duct and common bile duct at the level of the pancreatic head with pancreatic duct dilation and moderate intra and extrahepatic biliary dilation. Overall, the findings are similar to prior MR from 09/14/2013. There is also heterogeneous slightly increased T2 signal within the pancreatic head. An underlying pancreatic neoplasm cannot be excluded although findings could be related to fibrosis from chronic pancreatitis. Recommend further evaluation with ERCP and tissue sampling if this has not already been done. 2. Sequela of chronic pancreatitis. Although the calcifications are not well seen on today's study. 3. Trace ascites and mesenteric edema. D/ / 05/28/2016 19:29:05 Kristen Christian MD / inderer Interpreting Provider: Kristen Christian MD Consult Discharge Plan - Plan Referrals: Matthew Pool DO [Primary Care Provider] -
[2016-05-29] MEDS ORDERED: diazePAM 10 MG TABLET PO PRN (15:07)
[2016-05-29] MEDS: Insulin DETEMIR 100 UNIT/ML X5UNITS SQ SCH (21:36)
[2016-05-30] MEDS: *HR* Morphine 2 MG/ML SYRINGE IVP PRN ×3 (03:43→12:20)
[2016-05-30 06:31] LABS: Basophils % 0.2 %; Eosinophils % 0.1 %; Hematocrit 24.9 % (37.5-50.1); Hemoglobin 8.5 g/dL (12.9-16.9); Immature Granulocytes % 0.5 % (0-4); Immature Platelets 4.4 % (1.1-6.1); Lymphocytes # 0.7 K/mcL (0.6-4.6); Lymphocytes % 6.5 %; Mean Corpuscular HGB Conc 34.1 g/dL (31.6-35.5); Mean Corpuscular Hemoglobin 28.1 pg (28.0-33.3); Mean Corpuscular Volume 82.2 fL (83.0-100.0); Monocytes # 0.7 K/mcL (0.0-1.3); Monocytes % 6.1 %; Neutrophils # 9.3 K/mcL (1.6-8.9); Platelet Count 283 K/mcL (140-400); Red Blood Count 3.03 M/mcL (4.19-5.50); Red Cell Distribution Width 17.2 % (11.5-14.5); Segmented Neutrophils % 86.6 %
[2016-05-30 06:46] LABS: Albumin/Globulin Ratio 0.5 (1.1-2.2); Bilirubin,Direct 0.7 mg/dL (0.0-0.5); Bilirubin,Indirect 0.3 mg/dL (0.0-1.2); Globulin 4.4 g/dL (2.4-3.5); Total Protein 6.4 g/dL (6.0-8.3)
[2016-05-30 07:22] VITALS: BP 122/76
[2016-05-30] MEDS: Nicotine 21 MG PATCH.TD24 TD SCH (07:36)
[2016-05-30] MEDS: Insulin LISPRO 300 UNITS/3 ML VIAL SQ SCH ×2 (07:36→12:17)
[2016-05-30] MEDS: 0.9 % Sodium Chloride 1,000 ML IVC SCH (07:36)
[2016-05-30] MEDS: Pantoprazole 40 MG VIAL IVP SCH (07:39)
--- NOTE | 2016-05-30 10:09 | Discharge Summary ---
Date of Encounter: 05/30/16 Time of Encounter: 09:00 - Discharge Diagnosis (1) Chest pain Priority: Primary Status: Acute Comments: examination and findings more consistent with epigastric pain. Chest x-ray unremarkable. Troponin negative 3. Low suspicion for ACS. Qualifiers: Chest pain type: other chest pain Qualified Code(s): R07.89 - Other chest pain; R07.8 - Other chest pain (2) Esophagitis Priority: Primary Status: Acute Comments: Acute on chronic. Patient said he has been unable to afford his PPI and his Carafate in the past because he lost his insurance in January. medical services assistant on board for prescription coverage assistance. Patient stating that he has applied for Medicare. (3) Anemia Priority: Secondary Status: Chronic Comments: Acute on chronic since the beginning of this month. He was seen on May 19 with a chief complaint of two-week history of a nosebleed. He was transfused with 2 units of packed red blood cells since that admission and has stopped taking his Brilinta. He has remained hemodynamically stable since that time. His guaiac was positive. Likely acute on chronic blood loss anemia. No indication for transfusion during this admission. Qualifiers: Anemia type: other cause Other causes of anemia: other cause, not classified Qualified Code(s): D64.89 - Other specified anemias (4) HTN (hypertension) Priority: Secondary Status: Chronic Comments: It does not appear as if this patient is on any antihypertensive medications at home. He was started on low-dose lisinopril and carvedilol; normotensive on day of discharge. Recommend daily blood pressure checks at home Qualifiers: Hypertension type: unspecified secondary hypertension Qualified Code(s): I15.9 - Secondary hypertension, unspecified; I15 - Secondary hypertension (5) CAD (coronary artery disease) Priority: Secondary Status: Chronic Comments: Patient denied chest pain while admitted. Chest x-ray negative. Chest CT consistent with esophagitis. EGD revealed esophagitis with medium-sized hiatal hernia and duodenitis Qualifiers: Coronary Disease-Associated Artery/Lesion type: [place] artery [place] vs. transplanted heart: [place] heart Associated angina: with unspecified angina Qualified Code(s): I25.119 - Atherosclerotic heart disease of [place] coronary artery with unspecified angina pectoris (6) Diabetes mellitus Priority: Secondary Status: Chronic Comments: Controlled with an A1c of 6.2%. Follow-up outpatient Qualifiers: Diabetes mellitus type: type 2 Diabetes mellitus complication status: with unspecified complications Diabetes mellitus custodial insulin use: unspecified custodial insulin use status Qualified Code(s): E11.8 - Type 2 diabetes mellitus with unspecified complications (7) Chronic pancreatitis Priority: Secondary Status: Chronic Comments: Abdominal MRI and abdominal CTA consistent with chronic pancreatitis. LFTs stable. GI onboard during this admission. Able to tolerate a regular diet prior to discharge. Patient will follow up outpatient with Dr. Pool. ITS Impressions Abdomen CTA 05/26/16 00:55 IMPRESSION: 1. No aneurysm or dissection. 2. Esophagitis. 3. Moderate left renal artery stenosis. 4. Chronic pancreatitis. D/ / Denny Huddleston MD / Denny Huddleston MD Interpreting Provider: Denny Huddleston MD Chest CTA 05/26/16 00:55 IMPRESSION: 1. No aneurysm or dissection. 2. Esophagitis. 3. Moderate left renal artery stenosis. 4. Chronic pancreatitis. D/ / Denny Huddleston MD / Denny Huddleston MD Interpreting Provider: Denny Huddleston MD Abdomen MRI 05/28/16 10:00 IMPRESSION: 1. Again noted is abrupt termination of the pancreatic duct and common bile duct at the level of the pancreatic head with pancreatic duct dilation and moderate intra and extrahepatic biliary dilation. Overall, the findings are similar to prior MR from 09/14/2013. There is also heterogeneous slightly increased T2 signal within the pancreatic head. An underlying pancreatic neoplasm cannot be excluded although findings could be related to fibrosis from chronic pancreatitis. Recommend further evaluation with ERCP and tissue sampling if this has not already been done. 2. Sequela of chronic pancreatitis. Although the calcifications are not well seen on today's study. 3. Trace ascites and mesenteric edema. D/ / 05/28/2016 19:29:05 Kristen Christian MD / [email or web address] Interpreting Provider: Kristen Christian MD Qualifiers: Pancreatitis type: unspecified pancreatitis type Qualified Code(s): K86.1 - Other chronic pancreatitis (8) Left renal artery stenosis Priority: Secondary Status: Chronic Comments: Patient follow-up outpatient after discharge with nephrology. Renal functioning and blood pressure stable. (9) GERD (gastroesophageal reflux disease) Priority: Secondary Status: Chronic Comments: Was not able to take his PPI secondary to cost and loss of his insurance. We will attempt to secure PPI and Carafate prescriptions. Qualifiers: Esophagitis presence: with esophagitis Qualified Code(s): K21.0 - Gastro- esophageal reflux disease with esophagitis (10) Positive urine drug screen Priority: Primary Status: Acute Comments: Patient's urine drug screen was positive for opioids, benzodiazepines, and marijuana. Patient says the only prescriptions he is taking is simvastatin and aspirin. (11) Elevated LFTs Priority: Primary Status: Acute Comments: remained stable; followup outpatient - Discharge Medications Prescriptions: Carvedilol [Coreg] 3.125 mg PO BIDWM #30 tablet Omeprazole [PriLOSEC] 20 mg PO BIDAC #60 cap Sucralfate [Carafate] 1 gm PO QIDAC #120 tablet Home Medications: Diazepam [Valium] 10 mg PO BID PRN 09/02/15 [History] Insulin DETEMIR [Levemir Flextouch] 15 unit SQ BID 05/22/16 [History] Insulin Human Regular [HumuLIN R] 10 unit IJ TID 05/22/16 [History] Levothyroxine Sodium [Levoxyl] 150 mcg PO DAILY 05/22/16 [History] Simvastatin [Zocor] 20 mg PO HS 05/22/16 [History] Carvedilol [Coreg] 3.125 mg PO BIDWM #30 tablet 05/30/16 [Rx] Omeprazole [PriLOSEC] 20 mg PO BIDAC #60 cap 05/30/16 [Rx] Sucralfate [Carafate] 1 gm PO QIDAC #120 tablet 05/30/16 [Rx] Allergies/Adverse Reactions: Allergies dicyclomine [From Bentyl] Allergy (Verified 05/25/16 23:55) See Comments Procedures/tests Complete & Pending: Procedures Performed prior 72 hours Category Date Time Status MRCP [MR abdomen wo con] [MR] Routine MRI 05/28/16 10:00 Draft EV echocardiogram Routine Y 05/28/16 13:43 Completed Date of admission: 05/26/16 04:23 Primary care physician: Matthew Pool DO Consults: 05/26/16 05:45 Consult to Job Developer [CONS] Routine Comment: Consult to Nurse Navigator [CONS] Routine Comment: 05/27/16 15:35 Consult to Gastroenterology [CONS] Routine Consulting Provider: [facility] [place] Reason for Consult: Esophagitis per CT. 09/20 epigastric pain and tenderness. Guaiac positive. Anemia, hgb has dropped to 8.4 today from 10.5 yesterday. Recent history of epistaxis requiring transfusion, anticoagulant stopped. Pt normally sees Dr. Pool at [facility] for GI issues, all testing done there. Checking urine as well. Pt denies dk tarry stools or bryce blood. Pt also has chronic pancreatitis, RUQ pain , radiation to back. Call Completed: No 05/29/16 09:30 Consult to Mental Health Orderly [CONS] Routine Reason for SW Consult: HCAP Discharging clinician: Malgorzata Aquino Anticipated date of discharge: 05/30/16 - Patient Status Disposition: Home, Self-Care Condition: Fair Functional capacity at discharge: independent ambulation Overall status at discharge: patient is progressing back to baseline - Discharge Instructions Follow Up With: Matthew Pool DO [Primary Care Provider] - Additional Instructions: Follow-up with your primary care provider within one to 2 weeks. Follow-up with GI for repeat scope in 2 months. Follow-up with nephrology at the discretion of her primary care provider. - Diet and Activity Activity: increase activity as tolerated Diet: diabetic diet, low fat, low cholesterol, low salt diet Hospital course: Mr. Cruz is a 66 year old male with past medical history of COPD, hypertension , hyperlipidemia, CAD status post stent, diabetes, chronic pancreatitis, depression/anxiety, hypothyroidism, former tobacco abuse. Patient presented to emergency department chief complaint substernally located chest pain that began 6 hours prior to arrival. Of note, patient was admitted on 05/22/16 with acute blood loss anemia secondary to profound epistaxis 2 weeks while on chronic anticoagulation with Brilinta. He was transfused 2 units of packed red blood cells during that admission and was subsequently discharged. Patient states chest pain hurts worse with deep inspiration. Workup in the emergency department unremarkable. Patient was admitted to the hospitalist service for further evaluation and management. CTA of the abdomen and chest revealing esophagitis, moderate left renal artery stenosis, and chronic pancreatitis. On examination, patient's pain was more consistent with epigastric etiology than with cardiac etiology. Troponins were negative 3, low suspicion for ACS. Echocardiogram unremarkable with ejection fraction of 60% and mild diastolic dysfunction. Of note, patient had not been taking his GERD medication due to cost and the fact that he states he lost his insurance in January 2016. GI was brought on board who performed an EGD that revealed esophagitis, medium- sized hiatal hernia, duodenitis recommendation for a twice a day PPI and 3 times a day Carafate. MRCP also wrote out a CBD stricture. Patient remained hemodynamically stable during this admission and did not need a transfusion. He was admitted and observed over the course of 5 days. Patient was not on any antihypertensive medications at home and he was hypertensive during this admission so he was started on carvedilol. He was normotensive on day of discharge and was instructed to check his blood pressure daily at home. He was able to tolerate a regular diet prior to discharge. His LFTs remained stable. He was discharged home in stable condition with close outpatient follow-up recommended. He was also instructed to follow up outpatient with nephrology regarding his renal artery stenosis. Renal functioning and blood pressure remained stable. Also of note, his tox screen was positive for opioids, benzos , and marijuana. medical services assistant was brought on board during this admission for assistance with obtaining his prescriptions. ITS Impressions Abdomen CTA 05/26/16 00:55 IMPRESSION: 1. No aneurysm or dissection. 2. Esophagitis. 3. Moderate left renal artery stenosis. 4. Chronic pancreatitis. D/ / Denny Huddleston MD / Denny Huddleston MD Interpreting Provider: Denny Huddleston MD Chest CTA 05/26/16 00:55 IMPRESSION: 1. No aneurysm or dissection. 2. Esophagitis. 3. Moderate left renal artery stenosis. 4. Chronic pancreatitis. D/ / Denny Huddleston MD / Denny Huddleston MD Interpreting Provider: Denny Huddleston MD Abdomen MRI 05/28/16 10:00 IMPRESSION: 1. Again noted is abrupt termination of the pancreatic duct and common bile duct at the level of the pancreatic head with pancreatic duct dilation and moderate intra and extrahepatic biliary dilation. Overall, the findings are similar to prior MR from 09/14/2013. There is also heterogeneous slightly increased T2 signal within the pancreatic head. An underlying pancreatic neoplasm cannot be excluded although findings could be related to fibrosis from chronic pancreatitis. Recommend further evaluation with ERCP and tissue sampling if this has not already been done. 2. Sequela of chronic pancreatitis. Although the calcifications are not well seen on today's study. 3. Trace ascites and mesenteric edema. D/ / 05/28/2016 19:29:05 Kristen Christian MD / [email or web address] Interpreting Provider: Kristen Christian MD - Time Spent with Patient Total time spent providing and/or coordinating discharge services: - Constitutional Vitals: Temp Pulse Resp BP Pulse Ox 98.1 F 74 15 122/76 97 05/30/16 07:21 05/30/16 07:21 05/30/16 07:21 05/30/16 07:21 05/30/16 07:21 General appearance: Present: cooperative, A&O X 3, pleasant, no acute distress, answers questions appropriately - Head Head exam: Present: atraumatic, normocephalic - Eye Eye exam: Present: PERRL, conjuntiva pink, sclera anicteric Pupils: Present: PERRL - Neck Neck exam general surgery: Present: supple, trachea midline. Absent: lymphadenopathy - Respiratory Respiratory exam: Present: decreased breath sounds. Absent: accessory muscle use, rales, respiratory distress, rhonchi, wheezes - Cardiovascular Cardiovascular exam: Present: RRR, +S1, +S2. Absent: diastolic murmur, gallop, rubs, systolic murmur - GI/Abdominal GI/Abdominal exam: Present: normal bowel sounds, soft, no peritoneal signs. Absent: distended, tenderness - Extremities Exam Extremities exam: Present: warm, radial pulses palpable and symetrical. Absent : calf tenderness, cyanotic, pedal edema - Neurological Exam Neurological exam: Present: alert, CN II-XII intact, normal gait, oriented X3, no focal deficits, strengths equal and symetr throughout. Absent: pronater drift, facial droop, speech deficit - Skin Skin exam: Present: dry, intact, pallor, warm
== END 2016-05-30 16:01 | disposition home or self-care (01) ==
LOC: 3BNU 23:50 → EMEROO 23:50 → SUATTDRO 05-26 04:23 → 3BNU 05-26 05:24
PROVIDERS: ADMIT Internal Medicine; ATTEND Nurse Practitioner Family
PROC: ENDOEBX (2016-05-29 13:00)

== ENCOUNTER 2019-05-04 17:35 | Inpatient (IN) ==
[2019-05-04] MEDS ORDERED: Piperacillin/Tazobactam 3.375 GM in Water for inj. (sterile) 20 ML IVP ONE (18:05)
[2019-05-04] MEDS ORDERED: 0.9 % Sodium Chloride 1,000 ML IVC ONE ×2 (18:05→18:58)
[2019-05-04] MEDS ORDERED: *HR* HYDROmorphone (PF) 1 MG/ML SYRINGE IVP ONE (18:14)
[2019-05-04 18:27] LABS: Basophils % 0.3 %; Eosinophils # 0.1 K/mcL (0.0-0.6); Eosinophils % 1.2 %; Hematocrit 39.7 % (37.5-50.1); Hemoglobin 13.1 g/dL (12.9-16.9); Immature Granulocytes % 0.2 % (0-4); Lymphocytes # 1.1 K/mcL (0.6-4.6); Lymphocytes % 12.7 %; Mean Corpuscular Hemoglobin 30.8 pg (28.0-33.3); Mean Corpuscular Volume 93.4 fL (83.0-100.0); Mean Platelet Volume 10.4 fL (9.4-12.4); Monocytes # 0.6 K/mcL (0.0-1.3); Monocytes % 6.5 %; Neutrophils # 6.9 K/mcL (1.6-8.9); Platelet Count 264 K/mcL (140-400); Red Blood Count 4.25 M/mcL (4.19-5.50); Segmented Neutrophils % 79.1 %; White Blood Count 8.7 K/mcL (4.3-11.1)
[2019-05-04 18:51] LABS: BUN/Creatinine Ratio 10 (6-26); Blood Urea Nitrogen 10 mg/dL (8-23); C-Reactive Protein < 5 mg/L (Less than 10); Calcium 8.4 mg/dL (8.6-10.3); Carbon Dioxide 22 mEq/L (23-29); Chloride 96 mEq/L (98-107); Glucose 562 mg/dL (70-105); Osmolality,Calculated 285 (280-300); Potassium 4.3 mEq/L (3.5-5.1); Sodium 125 mEq/L (136-145); eGFR For African Americans > 60 (> 60); eGFR For Non-African Americans > 60 (> 60)
[2019-05-04] MEDS ORDERED: Insulin Human Regular 10 UNIT in 0.9 % Sodium Chloride 10 ML IV ONE (18:58)
[2019-05-04 19:14] LABS: ABG Base Excess 1 mEq/L (-2 to 3); ABG HCO3 25 mEq/L (21-27); ABG Oxygen Saturation 100 % (95-98); ABG PCO2 34 mmHg (35-45); ABG PH 7.46 pH Units (7.32-7.45); ABG PO2 218 mmHg (85-104); ABG TCO2 26 mEq/L (20-26)
[2019-05-04] MEDS ORDERED: D5% in Water 1,000 ML IVC PRN (19:33)
[2019-05-04] MEDS ORDERED: *HR* Dextrose 50 % in Water (Syg) 50 ML SYRINGE IVP PRN (19:33)
[2019-05-04] MEDS ORDERED: Naloxone 0.4 MG/ML INJ IVP PRN ×2 (19:33→23:21)
[2019-05-04] MEDS ORDERED: Dextrose Gel 15 GM/37.5 ML TUBE PO PRN ×2 (19:33)
[2019-05-04 20:28] LABS: BUN/Creatinine Ratio 10 (6-26); Blood Urea Nitrogen 9 mg/dL (8-23); Calcium 7.6 mg/dL (8.6-10.3); Carbon Dioxide 21 mEq/L (23-29); Chloride 104 mEq/L (98-107); Glucose 332 mg/dL (70-105); Osmolality,Calculated 286 (280-300); Potassium 3.4 mEq/L (3.5-5.1); Sodium 132 mEq/L (136-145); eGFR For African Americans > 60 (> 60); eGFR For Non-African Americans > 60 (> 60)
[2019-05-04 21:13] LABS: Estimated Average Glucose 272 mg/dl
[2019-05-04] MEDS ORDERED: Calcium Gluconate 1gm/50mL 1 GM/50 ML BAG IVPB ONE (21:13)
[2019-05-04] MEDS ORDERED: Ringers Solution, Lactated 1,000 ML IVC SCH (21:15)
[2019-05-04] MEDS: Insulin LISPRO 300 UNITS/3 ML VIAL SQ SCH (22:12)
[2019-05-04] MEDS ORDERED: Morphine Sulfate 2 MG/ML SYRINGE IVP ONE (22:41)
[2019-05-05] MEDS: Insulin LISPRO 300 UNITS/3 ML VIAL SQ SCH ×7 (00:34→20:18)
[2019-05-05] MEDS ORDERED: *HR* Labetalol 20 MG/4 ML SYRINGE IVP PRN (01:01)
[2019-05-05 02:27] LABS: Basophils # 0.1 K/mcL (0.0-0.2); Basophils % 0.7 %; Eosinophils # 0.1 K/mcL (0.0-0.6); Eosinophils % 1.3 %; Hematocrit 33.8 % (37.5-50.1); Immature Granulocytes % 0.4 % (0-4); Lymphocytes # 1.3 K/mcL (0.6-4.6); Mean Corpuscular HGB Conc 33.4 g/dL (31.6-35.5); Mean Corpuscular Hemoglobin 30.7 pg (28.0-33.3); Mean Corpuscular Volume 91.8 fL (83.0-100.0); Mean Platelet Volume 10.5 fL (9.4-12.4); Monocytes # 0.7 K/mcL (0.0-1.3); Monocytes % 7.9 %; Platelet Count 195 K/mcL (140-400); Red Blood Count 3.68 M/mcL (4.19-5.50); Red Cell Distribution Width 14.8 % (11.5-14.5); Segmented Neutrophils % 75.7 %; White Blood Count 9.2 K/mcL (4.3-11.1)
[2019-05-05 02:28] LABS: Hemoglobin 11.3 g/dL (12.9-16.9)
[2019-05-05 02:46] LABS: Alanine Aminotransferase 45 Units/L (7-52); Albumin 2.8 g/dL (3.5-5.7); Albumin/Globulin Ratio 0.8 (1.1-2.2); Alkaline Phosphatase 789 Units/L (34-104); Aspartate Amino Transferase 64 Units/L (13-39); BUN/Creatinine Ratio 9 (6-26); Bilirubin,Total 0.6 mg/dL (0.3-1.0); Blood Urea Nitrogen 10 mg/dL (8-23); Calcium 8.1 mg/dL (8.6-10.3); Carbon Dioxide 21 mEq/L (23-29); Chloride 106 mEq/L (98-107); Globulin 3.5 g/dL (2.4-3.5); Glucose 118 mg/dL (70-105); Magnesium 1.6 mg/dL (1.6-2.6); Osmolality,Calculated 272 (280-300); Phosphorous 2.8 mg/dL (2.7-4.5); Potassium 4.9 mEq/L (3.5-5.1); Sodium 131 mEq/L (136-145); Total Protein 6.3 g/dL (6.4-8.9); eGFR For African Americans > 60 (> 60); eGFR For Non-African Americans > 60 (> 60)
[2019-05-05 03:24] LABS: Bilirubin,Urine Negative (Negative); Blood,Urine Negative (Negative); Clarity,Urine Clear (Clear); Color,Urine Yellow (Yellow); Glucose,Urine (UA) >=1000 mg/dL (Normal); Ketones,Urine Negative (Negative); Leukocyte Esterase,Urine Negative (Negative); Nitrite,Urine Negative (Negative); Protein,Urine 100 mg/dL (Neg-Trace); Specific Gravity,Urine 1.015 (1.010-1.025); Urobilinogen,Urine Normal (Normal)
[2019-05-05 03:25] LABS: Bacteria,Urine None Seen per hpf (None-Few); Hyaline Casts,Urine None Seen per lpf (None-Few); RBC,Urine 0-3 per hpf (0-3); Squamous Epithelial Cell,Urine Moderate per lpf (None-Few); WBC,Urine 0-3 per hpf (0-3)
[2019-05-05 04:27] LABS: Prothrombin Time 10.9 Seconds (9.4-12.1)
[2019-05-05] MEDS ORDERED: Piperacillin/Tazobactam 3.375 GM in 0.9 % Sodium Chloride Mini Bag 100 ML IVPB SCH (08:00)
[2019-05-05] MEDS ORDERED: Lidocaine/EPI 1:100k 1% 20 ML VIAL ONE (09:39)
[2019-05-05] MEDS ORDERED: *HR* Propofol 200 MG/20 ML VIAL IVP ONE (09:42)
[2019-05-05] MEDS ORDERED: *HR* Midazolam HCl 2 MG/2 ML VIAL ONE (09:42)
[2019-05-05] MEDS ORDERED: *HR* FentaNYL (PF) 100 MCG/2 ML VIAL ONE (09:42)
[2019-05-05] MEDS ORDERED: Lidocaine -MPF 2% 2 ML VIAL ONE (09:42)
[2019-05-05] MEDS ORDERED: D5% in Water 1,000 ML IVC PRN (10:39)
[2019-05-05] MEDS ORDERED: *HR* Dextrose 50 % in Water (Syg) 50 ML SYRINGE IVP PRN (10:39)
[2019-05-05] MEDS ORDERED: Naloxone 0.4 MG/ML INJ IVP PRN ×2 (10:39)
[2019-05-05] MEDS ORDERED: Dextrose Gel 15 GM/37.5 ML TUBE PO PRN ×2 (10:39)
[2019-05-05] MEDS: lisinopriL 10 MG TABLET PO SCH (14:06)
[2019-05-05] MEDS: Piperacillin/Tazobactam 3.375 GM in 0.9 % Sodium Chloride Mini Bag 100 ML IVPB SCH (16:29)
[2019-05-05] MEDS: Insulin DETEMIR 100 UNIT/ML X5UNITS SQ SCH (22:18)
[2019-05-06] MEDS: Piperacillin/Tazobactam 3.375 GM in 0.9 % Sodium Chloride Mini Bag 100 ML IVPB SCH ×3 (01:04→16:01)
[2019-05-06] MEDS: Insulin LISPRO 300 UNITS/3 ML VIAL SQ SCH ×6 (01:12→20:44)
[2019-05-06 05:53] LABS: Basophils # 0.1 K/mcL (0.0-0.2); Basophils % 0.5 %; Eosinophils # 0.2 K/mcL (0.0-0.6); Eosinophils % 1.7 %; Hematocrit 39.9 % (37.5-50.1); Immature Granulocytes % 0.4 % (0-4); Lymphocytes # 1.4 K/mcL (0.6-4.6); Mean Corpuscular HGB Conc 32.6 g/dL (31.6-35.5); Mean Platelet Volume 10.4 fL (9.4-12.4); Monocytes # 0.9 K/mcL (0.0-1.3); Monocytes % 8.3 %; Neutrophils # 8.3 K/mcL (1.6-8.9); Platelet Count 258 K/mcL (140-400); Red Cell Distribution Width 15.1 % (11.5-14.5); Segmented Neutrophils % 76.1 %; White Blood Count 10.9 K/mcL (4.3-11.1)
[2019-05-06 06:12] LABS: BUN/Creatinine Ratio 12 (6-26); Blood Urea Nitrogen 17 mg/dL (8-23); Calcium 9.1 mg/dL (8.6-10.3); Carbon Dioxide 25 mEq/L (23-29); Chloride 97 mEq/L (98-107); Glucose 86 mg/dL (70-105); Osmolality,Calculated 269 (280-300); Potassium 4.3 mEq/L (3.5-5.1); Sodium 129 mEq/L (136-145); eGFR For African Americans > 60 (> 60); eGFR For Non-African Americans 52 (> 60)
[2019-05-06] MEDS: lisinopriL 10 MG TABLET PO SCH (09:11)
[2019-05-06 12:35] LABS: Chol/HDL Ratio 2.8 (0-4.9)
[2019-05-06] MEDS ORDERED: Tdap (Boostrix) Vaccine 0.5 ML SYRINGE IM ONE (12:50)
[2019-05-06] MEDS: Insulin DETEMIR 100 UNIT/ML X5UNITS SQ SCH (20:42)
[2019-05-07] MEDS: Piperacillin/Tazobactam 3.375 GM in 0.9 % Sodium Chloride Mini Bag 100 ML IVPB SCH ×2 (00:27→08:25)
[2019-05-07 04:35] LABS: Basophils % 0.6 %; Immature Granulocytes % 0.6 % (0-4); Platelet Count 230 K/mcL (140-400)
[2019-05-07 04:37] LABS: Basophils # 0.1 K/mcL (0.0-0.2); Eosinophils # 0.2 K/mcL (0.0-0.6); Eosinophils % 2.2 %; Hematocrit 38.4 % (37.5-50.1); Immature Platelets 7.1 % (1.1-6.1); Lymphocytes # 1.5 K/mcL (0.6-4.6); Lymphocytes % 17.6 %; Mean Corpuscular HGB Conc 33.9 g/dL (31.6-35.5); Mean Corpuscular Hemoglobin 30.7 pg (28.0-33.3); Mean Corpuscular Volume 90.6 fL (83.0-100.0); Mean Platelet Volume 10.6 fL (9.4-12.4); Monocytes # 0.7 K/mcL (0.0-1.3); Monocytes % 8.5 %; Red Blood Count 4.24 M/mcL (4.19-5.50); Red Cell Distribution Width 14.9 % (11.5-14.5); Segmented Neutrophils % 70.5 %; White Blood Count 8.5 K/mcL (4.3-11.1)
[2019-05-07 04:47] LABS: BUN/Creatinine Ratio 15 (6-26); Blood Urea Nitrogen 19 mg/dL (8-23); Calcium 8.4 mg/dL (8.6-10.3); Carbon Dioxide 22 mEq/L (23-29); Chloride 106 mEq/L (98-107); Glucose 51 mg/dL (70-105); Osmolality,Calculated 270 (280-300); Potassium 4.4 mEq/L (3.5-5.1); Sodium 130 mEq/L (136-145); eGFR For African Americans > 60 (> 60); eGFR For Non-African Americans 55 (> 60)
[2019-05-07 05:03] LABS: Platelet Estimate Normal (Normal)
[2019-05-07] MEDS: Insulin LISPRO 300 UNITS/3 ML VIAL SQ SCH ×4 (07:45→20:50)
[2019-05-07] MEDS ORDERED: Piperacillin/Tazobactam 3.375 GM VIAL ONE (07:58)
[2019-05-07] MEDS: lisinopriL 10 MG TABLET PO SCH (08:29)
[2019-05-07] MEDS ORDERED: Aminoglycoside Consult 1 EACH MC ONE (10:51)
[2019-05-07] MEDS: cefTRIAXone 2,000 MG in Water for inj. (sterile) 20 ML IVP SCH (16:56)
[2019-05-07] MEDS: Insulin DETEMIR 100 UNIT/ML X5UNITS SQ SCH (20:54)
[2019-05-08] MEDS: lisinopriL 10 MG TABLET PO SCH (08:12)
[2019-05-08] MEDS: Insulin LISPRO 300 UNITS/3 ML VIAL SQ SCH ×4 (08:22→20:33)
[2019-05-08] MEDS ORDERED: D5% in Water 1,000 ML IVC SCH ×2 (11:45→14:43)
[2019-05-08] MEDS ORDERED: Albuterol 2.5 MG/3 ML NEBULIZER ONE (12:56)
[2019-05-08] MEDS ORDERED: *HR* Propofol 200 MG/20 ML VIAL IVP ONE ×2 (13:02→13:18)
[2019-05-08] MEDS ORDERED: *HR* FentaNYL (PF) 100 MCG/2 ML VIAL ONE (13:03)
[2019-05-08] MEDS ORDERED: Lidocaine/EPI 1:100k 1% 20 ML VIAL ONE (13:05)
[2019-05-08] MEDS ORDERED: Bupivacaine/EPI 1:200k 0.5%PF 10 ML VIAL ONE (13:06)
[2019-05-08] MEDS ORDERED: Dextrose Gel 15 GM/37.5 ML TUBE PO PRN ×2 (14:43)
[2019-05-08] MEDS ORDERED: Naloxone 0.4 MG/ML INJ IVP PRN (14:43)
[2019-05-08] MEDS ORDERED: D5% in Water 1,000 ML IVC PRN (14:43)
[2019-05-08] MEDS ORDERED: *HR* Dextrose 50 % in Water (Syg) 50 ML SYRINGE IVP PRN (14:43)
[2019-05-08] MEDS: cefTRIAXone 2,000 MG in Water for inj. (sterile) 20 ML IVP SCH (16:00)
[2019-05-08] MEDS ORDERED: cefTRIAXone 2,000 MG in Water for inj. (sterile) 20 ML IVP SCH (16:00)
[2019-05-08] MEDS: Ketorolac 15 MG/ML VIAL IVP PRN (18:34)
[2019-05-08] MEDS ORDERED: Insulin DETEMIR 100 UNIT/ML X5UNITS SQ SCH (21:00)
[2019-05-09 03:00] LABS: Basophils # 0.1 K/mcL (0.0-0.2); Basophils % 0.5 %; Eosinophils # 0.2 K/mcL (0.0-0.6); Hematocrit 40.9 % (37.5-50.1); Hemoglobin 13.5 g/dL (12.9-16.9); Immature Granulocytes % 0.5 % (0-4); Lymphocytes # 1.1 K/mcL (0.6-4.6); Mean Corpuscular Hemoglobin 30.6 pg (28.0-33.3); Mean Corpuscular Volume 92.7 fL (83.0-100.0); Mean Platelet Volume 10.2 fL (9.4-12.4); Monocytes % 8.9 %; Neutrophils # 8.4 K/mcL (1.6-8.9); Platelet Count 315 K/mcL (140-400); Red Blood Count 4.41 M/mcL (4.19-5.50); Segmented Neutrophils % 78.1 %; White Blood Count 10.8 K/mcL (4.3-11.1)
[2019-05-09 03:20] LABS: BUN/Creatinine Ratio 18 (6-26); Blood Urea Nitrogen 20 mg/dL (8-23); Calcium 8.6 mg/dL (8.6-10.3); Carbon Dioxide 24 mEq/L (23-29); Chloride 101 mEq/L (98-107); Glucose 180 mg/dL (70-105); Osmolality,Calculated 275 (280-300); Potassium 4.2 mEq/L (3.5-5.1); Sodium 129 mEq/L (136-145); eGFR For African Americans > 60 (> 60); eGFR For Non-African Americans > 60 (> 60)
[2019-05-09] MEDS: Ketorolac 15 MG/ML VIAL IVP PRN (04:29)
[2019-05-09 07:11] VITALS: BP 153/78
[2019-05-09] MEDS ORDERED: Ondansetron 4 MG/2 ML VIAL IVP PRN (07:42)
[2019-05-09] MEDS: Insulin LISPRO 300 UNITS/3 ML VIAL SQ SCH (08:03)
[2019-05-09] MEDS ORDERED: lisinopriL 10 MG TABLET PO SCH (09:00)
== END 2019-05-09 10:52 | disposition home or self-care (01) | DRG 513 ==
LOC: EMEROOARM 17:35 → 3NENU 17:35 → SUATTDRO 19:28 → 3NENU 20:55
PROVIDERS: ADMIT Internal Medicine; ATTEND Internal Medicine

== ENCOUNTER 2020-01-18 12:35 | Inpatient (IN) ==
[2020-01-18] MEDS ORDERED: Isovue-370 500 ML BOTTLE IVP ONE (13:19)
[2020-01-18] MEDS ORDERED: Ondansetron ODT 4 MG TAB.RAPDIS SL ONE (13:21)
[2020-01-18] MEDS ORDERED: *HR* OxyCODONE/APAP 5/325 TABLET PO ONE (13:21)
[2020-01-18] MEDS ORDERED: Piperacillin/Tazobactam 3.375 GM in 0.9 % Sodium Chloride Mini Bag 100 ML IVPB ONE (13:46)
[2020-01-18 14:36] LABS: Basophils % 0.3 %; Eosinophils % 0.1 %; Hematocrit 32.9 % (37.5-50.1); Hemoglobin 10.8 g/dL (12.9-16.9); Immature Granulocytes % 0.6 % (0-4); Lymphocytes # 0.5 K/mcL (0.6-4.6); Lymphocytes % 7.3 %; Mean Corpuscular HGB Conc 32.8 g/dL (31.6-35.5); Mean Corpuscular Hemoglobin 31.4 pg (28.0-33.3); Mean Corpuscular Volume 95.6 fL (83.0-100.0); Mean Platelet Volume 10.7 fL (9.4-12.4); Monocytes # 0.5 K/mcL (0.0-1.3); Monocytes % 7.2 %; Neutrophils # 6.1 K/mcL (1.6-8.9); Platelet Count 207 K/mcL (140-400); Red Blood Count 3.44 M/mcL (4.19-5.50); Red Cell Distribution Width 14.6 % (11.5-14.5); Segmented Neutrophils % 84.5 %; White Blood Count 7.3 K/mcL (4.3-11.1)
[2020-01-18 15:11] LABS: BUN/Creatinine Ratio 9 (6-26); Blood Urea Nitrogen 10 mg/dL (8-23); C-Reactive Protein 82 mg/L (Less than 10); Calcium 7.4 mg/dL (8.6-10.3); Carbon Dioxide 23 mEq/L (23-29); Chloride 95 mEq/L (98-107); Glucose 660 mg/dL (70-105); Osmolality,Calculated 296 (280-300); Sodium 128 mEq/L (136-145); eGFR For African Americans > 60 (> 60); eGFR For Non-African Americans > 60 (> 60)
[2020-01-18] MEDS ORDERED: Insulin Human Regular 10 UNIT in 0.9 % Sodium Chloride 10 ML IV ONE ×2 (15:45→17:41)
[2020-01-18] MEDS ORDERED: 0.9 % Sodium Chloride 1,000 ML IVC ONE (15:45)
[2020-01-18] MEDS ORDERED: 0.9 % Sodium Chloride 250 ML ONE (16:14)
[2020-01-18] MEDS ORDERED: Vancomycin 1,000 MG VIAL ONE (16:14)
[2020-01-18] MEDS ORDERED: *HR* HYDROmorphone (PF) 1 MG/ML SYRINGE IVP ONE (16:46)
[2020-01-18] MEDS ORDERED: *HR* Dextrose 50 % in Water (Vial) 50 ML VIAL IVP PRN (17:04)
[2020-01-18] MEDS ORDERED: Dextrose Gel 15 GM/37.5 ML TUBE PO PRN ×2 (17:04)
[2020-01-18] MEDS ORDERED: D5% in Water 1,000 ML IVC PRN (17:04)
[2020-01-18] MEDS ORDERED: *HR* OxyCODONE Immed Rel 5 MG TABLET PO PRN (17:26)
[2020-01-18] MEDS ORDERED: Naloxone 0.4 MG/ML INJ IVP PRN (17:37)
[2020-01-18] MEDS ORDERED: Ondansetron 4 MG/2 ML VIAL IVP PRN (17:37)
[2020-01-18] MEDS: *HR* OxyCODONE Immed Rel 5 MG TABLET PO PRN (20:13)
[2020-01-18] MEDS ORDERED: Insulin DETEMIR 100 UNIT/ML X5UNITS SQ SCH (21:00)
[2020-01-18] MEDS ORDERED: Insulin LISPRO 300 UNITS/3 ML VIAL SQ SCH (21:00)
[2020-01-18] MEDS: 0.9 % Sodium Chloride 1,000 ML IVC SCH (21:19)
[2020-01-19] MEDS: Piperacillin/Tazobactam 3.375 GM in 0.9 % Sodium Chloride Mini Bag 100 ML IVPB SCH ×4 (00:15→23:00)
[2020-01-19] MEDS: *HR* OxyCODONE Immed Rel 5 MG TABLET PO PRN ×4 (02:34→21:51)
[2020-01-19] MEDS ORDERED: Famotidine 20 MG/2 ML VIAL IVP ONE ×2 (06:00→19:33)
[2020-01-19 07:00] LABS: BUN/Creatinine Ratio 8 (6-26); Blood Urea Nitrogen 9 mg/dL (8-23); Calcium 7.5 mg/dL (8.6-10.3); Carbon Dioxide 19 mEq/L (23-29); Chloride 104 mEq/L (98-107); Glucose 214 mg/dL (70-105); Osmolality,Calculated 281 (280-300); Potassium 4.6 mEq/L (3.5-5.1); Sodium 133 mEq/L (136-145); eGFR For African Americans > 60 (> 60); eGFR For Non-African Americans > 60 (> 60)
[2020-01-19 07:05] LABS: Basophils # 0.1 K/mcL (0.0-0.2); Basophils % 0.5 %; Eosinophils # 0.2 K/mcL (0.0-0.6); Eosinophils % 1.9 %; Hematocrit 33.4 % (37.5-50.1); Hemoglobin 11.1 g/dL (12.9-16.9); Immature Granulocytes % 1.3 % (0-4); Lymphocytes # 1.7 K/mcL (0.6-4.6); Lymphocytes % 16.8 %; Mean Corpuscular HGB Conc 33.2 g/dL (31.6-35.5); Mean Corpuscular Hemoglobin 30.8 pg (28.0-33.3); Mean Corpuscular Volume 92.8 fL (83.0-100.0); Mean Platelet Volume 11.1 fL (9.4-12.4); Monocytes # 0.7 K/mcL (0.0-1.3); Monocytes % 7.4 %; Neutrophils # 7.2 K/mcL (1.6-8.9); Platelet Count 279 K/mcL (140-400); Red Cell Distribution Width 14.5 % (11.5-14.5); Segmented Neutrophils % 72.1 %
[2020-01-19] MEDS: Insulin LISPRO 300 UNITS/3 ML VIAL SQ SCH ×4 (07:05→16:55)
[2020-01-19] MEDS ORDERED: Gadolinium Contrast Agent (WT Based) IV PRN ×2 (07:31→19:33)
[2020-01-19] MEDS ORDERED: *HR* HYDROmorphone (PF) 1 MG/ML SYRINGE IVP ONE (09:11)
[2020-01-19] MEDS ORDERED: *HR* HYDROmorphone (PF) 1 MG/ML SYRINGE IVP PRN (12:09)
[2020-01-19] MEDS: 0.9 % Sodium Chloride 1,000 ML IVC SCH (13:54)
[2020-01-19] MEDS ORDERED: Lidocaine/EPI 1:200k 1% PF 10 ML VIAL ONE (14:35)
[2020-01-19] MEDS ORDERED: *HR* Propofol 200 MG/20 ML VIAL IVP ONE (16:52)
[2020-01-19] MEDS ORDERED: *HR* FentaNYL (PF) 100 MCG/2 ML VIAL ONE (16:52)
[2020-01-19] MEDS ORDERED: Dexamethasone 4 MG/ML VIAL ONE (16:53)
[2020-01-19] MEDS ORDERED: Ondansetron 4 MG/2 ML VIAL ONE (16:53)
[2020-01-19] MEDS ORDERED: Lidocaine -MPF 2% 2 ML VIAL ONE (16:53)
[2020-01-19] MEDS ORDERED: *HR* HYDROMORPHONE 2 MG/ML VIAL ONE (17:06)
[2020-01-19] MEDS ORDERED: Ondansetron 4 MG/2 ML VIAL IVP PRN ×2 (17:43→19:33)
[2020-01-19] MEDS ORDERED: *HR* Labetalol 20 MG/4 ML SYRINGE IVP PRN (17:43)
[2020-01-19] MEDS ORDERED: *HR* Labetalol 20 MG/4 ML SYRINGE IVP ONE ×2 (17:45→22:28)
[2020-01-19] MEDS: *HR* HYDROmorphone PF 0.5 MG/0.5 ML SYRINGE IVP PRN ×4 (18:28→19:03)
[2020-01-19] MEDS ORDERED: *HR* OxyCODONE Immed Rel 5 MG TABLET PO PRN (19:33)
[2020-01-19] MEDS ORDERED: Naloxone 0.4 MG/ML INJ IVP PRN (19:33)
[2020-01-19] MEDS ORDERED: *HR* Dextrose 50 % in Water (Vial) 50 ML VIAL IVP PRN (19:33)
[2020-01-19] MEDS ORDERED: 0.9 % Sodium Chloride 1,000 ML IVC SCH (19:33)
[2020-01-19] MEDS ORDERED: D5% in Water 1,000 ML IVC PRN (19:33)
[2020-01-19] MEDS ORDERED: Dextrose Gel 15 GM/37.5 ML TUBE PO PRN ×2 (19:33)
[2020-01-19] MEDS ORDERED: Insulin DETEMIR 100 UNIT/ML X5UNITS SQ SCH (21:00)
[2020-01-19] MEDS ORDERED: Insulin LISPRO 300 UNITS/3 ML VIAL SQ SCH (21:00)
[2020-01-20] MEDS: *HR* OxyCODONE Immed Rel 5 MG TABLET PO PRN ×4 (03:57→22:18)
[2020-01-20] MEDS: *HR* HYDROmorphone (PF) 1 MG/ML SYRINGE IVP PRN ×3 (05:51→19:26)
[2020-01-20] MEDS: Piperacillin/Tazobactam 3.375 GM in 0.9 % Sodium Chloride Mini Bag 100 ML IVPB SCH ×2 (08:04→16:47)
[2020-01-20] MEDS: Insulin LISPRO 300 UNITS/3 ML VIAL SQ SCH ×3 (08:05→16:09)
[2020-01-20 09:20] LABS: BUN/Creatinine Ratio 8 (6-26); Blood Urea Nitrogen 10 mg/dL (8-23); Carbon Dioxide 18 mEq/L (23-29); Chloride 107 mEq/L (98-107); Glucose 208 mg/dL (70-105); Magnesium 1.6 mg/dL (1.6-2.6); Osmolality,Calculated 283 (280-300); Potassium 4.9 mEq/L (3.5-5.1); Sodium 134 mEq/L (136-145); eGFR For African Americans > 60 (> 60); eGFR For Non-African Americans 57 (> 60)
[2020-01-20 09:26] LABS: Basophils % 0.2 %; Eosinophils % 0.2 %; Hematocrit 35.7 % (37.5-50.1); Hemoglobin 11.9 g/dL (12.9-16.9); Immature Granulocytes % 0.2 % (0-4); Lymphocytes # 1.2 K/mcL (0.6-4.6); Lymphocytes % 14.4 %; Mean Corpuscular HGB Conc 33.3 g/dL (31.6-35.5); Mean Corpuscular Hemoglobin 31.2 pg (28.0-33.3); Mean Corpuscular Volume 93.7 fL (83.0-100.0); Mean Platelet Volume 11.4 fL (9.4-12.4); Monocytes # 0.6 K/mcL (0.0-1.3); Monocytes % 7.3 %; Neutrophils # 6.2 K/mcL (1.6-8.9); Platelet Count 258 K/mcL (140-400); Red Blood Count 3.81 M/mcL (4.19-5.50); Red Cell Distribution Width 14.6 % (11.5-14.5); Segmented Neutrophils % 77.7 %
[2020-01-20] MEDS ORDERED: Insulin DETEMIR 100 UNIT/ML X5UNITS SQ SCH (21:00)
[2020-01-21] MEDS: *HR* HYDROmorphone (PF) 1 MG/ML SYRINGE IVP PRN ×3 (01:15→20:30)
[2020-01-21] MEDS: Piperacillin/Tazobactam 3.375 GM in 0.9 % Sodium Chloride Mini Bag 100 ML IVPB SCH ×4 (01:15→23:23)
[2020-01-21] MEDS: *HR* OxyCODONE Immed Rel 5 MG TABLET PO PRN ×3 (04:17→23:22)
[2020-01-21] MEDS: Insulin LISPRO 300 UNITS/3 ML VIAL SQ SCH ×3 (07:39→16:25)
[2020-01-21 07:48] LABS: BUN/Creatinine Ratio 10 (6-26); Blood Urea Nitrogen 13 mg/dL (8-23); Calcium 7.7 mg/dL (8.6-10.3); Carbon Dioxide 22 mEq/L (23-29); Chloride 106 mEq/L (98-107); Glucose 52 mg/dL (70-105); Osmolality,Calculated 278 (280-300); Potassium 3.8 mEq/L (3.5-5.1); Sodium 135 mEq/L (136-145); eGFR For African Americans > 60 (> 60); eGFR For Non-African Americans 57 (> 60)
[2020-01-21] MEDS: hydroCHLOROthiazide 25 MG TABLET PO SCH (07:51)
[2020-01-21 07:55] LABS: Basophils % 0.3 %; Eosinophils # 0.1 K/mcL (0.0-0.6); Eosinophils % 0.8 %; Hematocrit 32.6 % (37.5-50.1); Hemoglobin 10.5 g/dL (12.9-16.9); Immature Granulocytes % 0.4 % (0-4); Lymphocytes # 1.2 K/mcL (0.6-4.6); Lymphocytes % 10.1 %; Mean Corpuscular HGB Conc 32.2 g/dL (31.6-35.5); Mean Corpuscular Hemoglobin 30.1 pg (28.0-33.3); Mean Corpuscular Volume 93.4 fL (83.0-100.0); Mean Platelet Volume 10.8 fL (9.4-12.4); Monocytes # 0.9 K/mcL (0.0-1.3); Monocytes % 7.7 %; Neutrophils # 9.6 K/mcL (1.6-8.9); Platelet Count 284 K/mcL (140-400); Red Blood Count 3.49 M/mcL (4.19-5.50); Red Cell Distribution Width 14.6 % (11.5-14.5); Segmented Neutrophils % 80.7 %; White Blood Count 11.9 K/mcL (4.3-11.1)
[2020-01-21] MEDS ORDERED: amLODIPine 5 MG TABLET PO SCH (09:00)
[2020-01-21 09:26] LABS: C-Reactive Protein 39 mg/L (Less than 10)
[2020-01-22 05:15] LABS: BUN/Creatinine Ratio 10 (6-26); Blood Urea Nitrogen 11 mg/dL (8-23); Calcium 7.6 mg/dL (8.6-10.3); Carbon Dioxide 20 mEq/L (23-29); Chloride 105 mEq/L (98-107); Glucose 301 mg/dL (70-105); Magnesium 1.7 mg/dL (1.6-2.6); Osmolality,Calculated 285 (280-300); Potassium 4.9 mEq/L (3.5-5.1); Sodium 132 mEq/L (136-145); eGFR For African Americans > 60 (> 60); eGFR For Non-African Americans > 60 (> 60)
[2020-01-22 05:31] LABS: Basophils # 0.1 K/mcL (0.0-0.2); Basophils % 0.7 %; Eosinophils # 0.1 K/mcL (0.0-0.6); Eosinophils % 1.2 %; Hematocrit 29.3 % (37.5-50.1); Hemoglobin 10.1 g/dL (12.9-16.9); Immature Granulocytes % 1.9 % (0-4); Lymphocytes # 1.1 K/mcL (0.6-4.6); Lymphocytes % 15.9 %; Mean Corpuscular HGB Conc 34.5 g/dL (31.6-35.5); Mean Corpuscular Hemoglobin 31.3 pg (28.0-33.3); Mean Corpuscular Volume 90.7 fL (83.0-100.0); Mean Platelet Volume 10.7 fL (9.4-12.4); Monocytes # 0.4 K/mcL (0.0-1.3); Monocytes % 6.5 %; Nucleated Red Blood Cells 0.3 /100 WBC (0); Platelet Count 175 K/mcL (140-400); Red Blood Count 3.23 M/mcL (4.19-5.50); Red Cell Distribution Width 14.2 % (11.5-14.5); Segmented Neutrophils % 73.8 %; White Blood Count 6.8 K/mcL (4.3-11.1)
[2020-01-22] MEDS: *HR* OxyCODONE Immed Rel 5 MG TABLET PO PRN ×2 (05:35→21:05)
[2020-01-22] MEDS: Insulin LISPRO 300 UNITS/3 ML VIAL SQ SCH ×3 (09:01→16:34)
[2020-01-22] MEDS: hydroCHLOROthiazide 25 MG TABLET PO SCH (09:02)
[2020-01-22] MEDS: Piperacillin/Tazobactam 3.375 GM in 0.9 % Sodium Chloride Mini Bag 100 ML IVPB SCH ×3 (10:10→21:04)
[2020-01-22] MEDS: *HR* HYDROmorphone (PF) 1 MG/ML SYRINGE IVP PRN (10:10)
[2020-01-22] MEDS ORDERED: *HR* Midazolam HCl 2 MG/2 ML VIAL ONE (17:05)
[2020-01-22] MEDS ORDERED: *HR* FentaNYL (PF) 100 MCG/2 ML VIAL ONE ×2 (17:05→18:08)
[2020-01-22] MEDS ORDERED: Lidocaine -MPF 2% 2 ML VIAL ONE (17:05)
[2020-01-22] MEDS ORDERED: *HR* Propofol 200 MG/20 ML VIAL IVP ONE (17:05)
[2020-01-22] MEDS ORDERED: Dexamethasone 4 MG/ML VIAL ONE (17:08)
[2020-01-22] MEDS ORDERED: Acetaminophen IV 1,000 MG/100 ML BAG ONE (17:13)
[2020-01-22] MEDS ORDERED: *HR* OxyCODONE Immed Rel 5 MG TABLET PO PRN (17:43)
[2020-01-22] MEDS ORDERED: Ondansetron 4 MG/2 ML VIAL IVP PRN (17:43)
[2020-01-22] MEDS ORDERED: *HR* HYDROmorphone PF 0.5 MG/0.5 ML SYRINGE IVP PRN (17:43)
[2020-01-22] MEDS ORDERED: *HR* Labetalol 20 MG/4 ML SYRINGE IVP PRN (17:43)
[2020-01-22] MEDS ORDERED: Ethanol\\Acetic Acid\\Na Ace\\Ben 1,000 ML IRRIG.SOLN IR ONE (18:08)
[2020-01-22] MEDS ORDERED: *HR* Labetalol 20 MG/4 ML SYRINGE IVP ONE (18:09)
[2020-01-22] MEDS ORDERED: Vancomycin 1,250 MG/262.5 ML IV.SOLN IVPB SCH (20:00)
[2020-01-22] MEDS ORDERED: Insulin DETEMIR 100 UNIT/ML X5UNITS SQ SCH (21:00)
[2020-01-23] MEDS: Piperacillin/Tazobactam 3.375 GM in 0.9 % Sodium Chloride Mini Bag 100 ML IVPB SCH ×3 (02:22→18:23)
[2020-01-23] MEDS: *HR* HYDROmorphone (PF) 1 MG/ML SYRINGE IVP PRN ×3 (02:23→18:30)
[2020-01-23 02:34] LABS: BUN/Creatinine Ratio 9 (6-26); Blood Urea Nitrogen 12 mg/dL (8-23); Calcium 8.2 mg/dL (8.6-10.3); Carbon Dioxide 20 mEq/L (23-29); Chloride 100 mEq/L (98-107); Glucose 275 mg/dL (70-105); Osmolality,Calculated 284 (280-300); Potassium 4.1 mEq/L (3.5-5.1); Sodium 132 mEq/L (136-145); eGFR For African Americans > 60 (> 60); eGFR For Non-African Americans 56 (> 60)
[2020-01-23] MEDS: *HR* OxyCODONE Immed Rel 5 MG TABLET PO PRN ×3 (05:40→22:41)
[2020-01-23 06:04] LABS: Basophils % 0.1 %; Hematocrit 33.6 % (37.5-50.1); Immature Granulocytes % 0.3 % (0-4); Lymphocytes # 0.8 K/mcL (0.6-4.6); Lymphocytes % 6.9 %; Mean Corpuscular HGB Conc 32.7 g/dL (31.6-35.5); Mean Corpuscular Hemoglobin 30.6 pg (28.0-33.3); Mean Corpuscular Volume 93.6 fL (83.0-100.0); Mean Platelet Volume 9.9 fL (9.4-12.4); Monocytes # 0.4 K/mcL (0.0-1.3); Monocytes % 3.5 %; Neutrophils # 10.6 K/mcL (1.6-8.9); Platelet Count 327 K/mcL (140-400); Red Blood Count 3.59 M/mcL (4.19-5.50); Red Cell Distribution Width 14.5 % (11.5-14.5); Segmented Neutrophils % 89.2 %; White Blood Count 11.9 K/mcL (4.3-11.1)
[2020-01-23] MEDS ORDERED: hydroCHLOROthiazide 25 MG TABLET PO SCH (09:00)
[2020-01-23] MEDS ORDERED: *HR* Dextrose 50 % in Water (Vial) 50 ML VIAL IVP PRN (09:10)
[2020-01-23] MEDS ORDERED: D5% in Water 1,000 ML IVC PRN (09:10)
[2020-01-23] MEDS ORDERED: Dextrose Gel 15 GM/37.5 ML TUBE PO PRN ×2 (09:10)
[2020-01-23] MEDS ORDERED: Naloxone 0.4 MG/ML INJ IVP PRN (09:10)
[2020-01-23] MEDS: Insulin LISPRO 300 UNITS/3 ML VIAL SQ SCH ×3 (10:30→16:51)
[2020-01-23] MEDS ORDERED: Insulin DETEMIR 100 UNIT/ML X5UNITS SQ ONE (13:38)
[2020-01-23] MEDS: Insulin DETEMIR 100 UNIT/ML X5UNITS SQ SCH (19:46)
[2020-01-23] MEDS ORDERED: Vancomycin 1,250 MG/262.5 ML IV.SOLN IVPB SCH (20:00)
[2020-01-23] MEDS ORDERED: Vancomycin 1,500 MG/265 ML IV.SOLN IVPB SCH (21:00)
[2020-01-23] MEDS ORDERED: Insulin DETEMIR 100 UNIT/ML X5UNITS SQ SCH (21:00)
[2020-01-24] MEDS: Piperacillin/Tazobactam 3.375 GM in 0.9 % Sodium Chloride Mini Bag 100 ML IVPB SCH ×3 (02:57→19:30)
[2020-01-24] MEDS: *HR* HYDROmorphone (PF) 1 MG/ML SYRINGE IVP PRN ×2 (02:58→12:25)
[2020-01-24 03:57] LABS: Hematocrit 33.8 % (37.5-50.1); Immature Granulocytes % 0.3 % (0-4); Lymphocytes % 18.7 %; Mean Corpuscular HGB Conc 32.5 g/dL (31.6-35.5); Mean Corpuscular Hemoglobin 30.7 pg (28.0-33.3); Mean Corpuscular Volume 94.4 fL (83.0-100.0); Platelet Count 368 K/mcL (140-400); Red Blood Count 3.58 M/mcL (4.19-5.50); Red Cell Distribution Width 14.4 % (11.5-14.5); Segmented Neutrophils % 73.2 %; White Blood Count 10.6 K/mcL (4.3-11.1)
[2020-01-24 03:58] LABS: Basophils % 0.3 %; Eosinophils # 0.2 K/mcL (0.0-0.6); Eosinophils % 1.7 %; Monocytes # 0.6 K/mcL (0.0-1.3); Monocytes % 5.8 %; Neutrophils # 7.8 K/mcL (1.6-8.9)
[2020-01-24 04:09] LABS: BUN/Creatinine Ratio 10 (6-26); Blood Urea Nitrogen 14 mg/dL (8-23); Calcium 7.8 mg/dL (8.6-10.3); Carbon Dioxide 24 mEq/L (23-29); Chloride 100 mEq/L (98-107); Glucose 192 mg/dL (70-105); Osmolality,Calculated 278 (280-300); Potassium 3.8 mEq/L (3.5-5.1); Sodium 131 mEq/L (136-145); eGFR For African Americans > 60 (> 60); eGFR For Non-African Americans 50 (> 60)
[2020-01-24] MEDS: Ondansetron 4 MG/2 ML VIAL IVP PRN (04:26)
[2020-01-24] MEDS: hydroCHLOROthiazide 25 MG TABLET PO SCH (07:40)
[2020-01-24] MEDS: Insulin LISPRO 300 UNITS/3 ML VIAL SQ SCH ×4 (07:41→21:19)
[2020-01-24] MEDS: Insulin DETEMIR 100 UNIT/ML X5UNITS SQ SCH ×2 (07:43→21:20)
[2020-01-24] MEDS: *HR* OxyCODONE Immed Rel 5 MG TABLET PO PRN ×2 (07:54→16:36)
[2020-01-24 15:37] LABS: Bilirubin,Urine Negative (Negative); Blood,Urine Small (Negative); Clarity,Urine Clear (Clear); Color,Urine Colorless (Yellow); Glucose,Urine (UA) Normal (Normal); Ketones,Urine Negative (Negative); Leukocyte Esterase,Urine Negative (Negative); Nitrite,Urine Negative (Negative); PH,Urine 7.5 pH Units (5.0-8.0); Protein,Urine Trace mg/dL (Neg-Trace); Urobilinogen,Urine Normal (Normal); WBC,Urine 0-3 per hpf (0-3)
[2020-01-24] MEDS: Vancomycin 1,250 MG/262.5 ML IV.SOLN IVPB SCH (21:20)
[2020-01-25] MEDS: *HR* OxyCODONE Immed Rel 5 MG TABLET PO PRN ×3 (03:20→20:54)
[2020-01-25] MEDS: Piperacillin/Tazobactam 3.375 GM in 0.9 % Sodium Chloride Mini Bag 100 ML IVPB SCH (03:21)
[2020-01-25] MEDS: hydroCHLOROthiazide 25 MG TABLET PO SCH (08:15)
[2020-01-25] MEDS: Insulin LISPRO 300 UNITS/3 ML VIAL SQ SCH ×4 (08:16→20:56)
[2020-01-25] MEDS: Insulin DETEMIR 100 UNIT/ML X5UNITS SQ SCH ×2 (08:16→20:56)
[2020-01-25] MEDS ORDERED: Lidocaine -MPF 1% 5 ML AMPUL INFILT ONE (10:17)
[2020-01-25 10:20] LABS: BUN/Creatinine Ratio 9 (6-26); Blood Urea Nitrogen 12 mg/dL (8-23); Carbon Dioxide 21 mEq/L (23-29); Chloride 104 mEq/L (98-107); Glucose 187 mg/dL (70-105); Osmolality,Calculated 279 (280-300); Potassium 4.3 mEq/L (3.5-5.1); Sodium 132 mEq/L (136-145); eGFR For African Americans > 60 (> 60); eGFR For Non-African Americans 50 (> 60)
[2020-01-25] MEDS ORDERED: *HR* LORazepam 2 MG/ML VIAL IVP ONE (10:40)
[2020-01-25 12:13] LABS: C-Reactive Protein 14 mg/L (Less than 10)
[2020-01-25 12:17] LABS: Estimated Average Glucose 286 mg/dl; Hemoglobin A1C 11.6 %
[2020-01-25] MEDS: Ondansetron 4 MG/2 ML VIAL IVP PRN (20:52)
[2020-01-25] MEDS: Vancomycin 1,250 MG/262.5 ML IV.SOLN IVPB SCH (22:15)
[2020-01-26] MEDS: *HR* OxyCODONE Immed Rel 5 MG TABLET PO PRN ×3 (05:10→17:58)
[2020-01-26 06:36] LABS: BUN/Creatinine Ratio 11 (6-26); Blood Urea Nitrogen 15 mg/dL (8-23); Calcium 8.7 mg/dL (8.6-10.3); Carbon Dioxide 24 mEq/L (23-29); Chloride 103 mEq/L (98-107); Glucose 90 mg/dL (70-105); Osmolality,Calculated 276 (280-300); Potassium 4.1 mEq/L (3.5-5.1); Sodium 133 mEq/L (136-145); eGFR For African Americans > 60 (> 60); eGFR For Non-African Americans 52 (> 60)
[2020-01-26] MEDS: Insulin LISPRO 300 UNITS/3 ML VIAL SQ SCH ×4 (07:28→22:23)
[2020-01-26] MEDS: hydroCHLOROthiazide 25 MG TABLET PO SCH (09:00)
[2020-01-26] MEDS: Insulin DETEMIR 100 UNIT/ML X5UNITS SQ SCH ×2 (09:00→22:31)
[2020-01-26] MEDS: Vancomycin 1,250 MG/262.5 ML IV.SOLN IVPB SCH (22:29)
[2020-01-27] MEDS: *HR* OxyCODONE Immed Rel 5 MG TABLET PO PRN ×4 (03:29→21:29)
[2020-01-27 04:31] LABS: Potassium 4.3 mEq/L (3.5-5.1)
[2020-01-27] MEDS: *HR* HYDROmorphone (PF) 1 MG/ML SYRINGE IVP PRN ×3 (06:02→19:59)
[2020-01-27] MEDS ORDERED: Insulin LISPRO 300 UNITS/3 ML VIAL SQ ONE (07:57)
[2020-01-27] MEDS ORDERED: hydroCHLOROthiazide 25 MG TABLET PO SCH (09:00)
[2020-01-27] MEDS: Insulin LISPRO 300 UNITS/3 ML VIAL SQ SCH ×4 (09:01→20:02)
[2020-01-27] MEDS: amLODIPine 5 MG TABLET PO SCH (09:01)
[2020-01-27] MEDS: Insulin DETEMIR 100 UNIT/ML X5UNITS SQ SCH ×2 (09:01→20:01)
[2020-01-27] MEDS ORDERED: 0.9 % Sodium Chloride 1,000 ML IVC SCH (10:00)
[2020-01-27] MEDS ORDERED: hydroCHLOROthiazide 25 MG TABLET PO ONE (17:55)
[2020-01-28] MEDS: *HR* OxyCODONE Immed Rel 5 MG TABLET PO PRN ×3 (00:10→12:13)
[2020-01-28] MEDS: *HR* HYDROmorphone (PF) 1 MG/ML SYRINGE IVP PRN ×2 (02:55→09:00)
[2020-01-28 03:10] LABS: Basophils # 0.1 K/mcL (0.0-0.2); Basophils % 0.7 %; Eosinophils # 0.2 K/mcL (0.0-0.6); Eosinophils % 2.3 %; Hematocrit 30.5 % (37.5-50.1); Hemoglobin 9.9 g/dL (12.9-16.9); Immature Granulocytes % 0.3 % (0-4); Lymphocytes # 1.2 K/mcL (0.6-4.6); Lymphocytes % 13.1 %; Mean Corpuscular HGB Conc 32.5 g/dL (31.6-35.5); Mean Corpuscular Volume 92.4 fL (83.0-100.0); Mean Platelet Volume 9.9 fL (9.4-12.4); Monocytes # 0.9 K/mcL (0.0-1.3); Neutrophils # 6.7 K/mcL (1.6-8.9); Platelet Count 278 K/mcL (140-400); Red Cell Distribution Width 14.6 % (11.5-14.5); Segmented Neutrophils % 73.6 %; White Blood Count 9.1 K/mcL (4.3-11.1)
[2020-01-28 03:30] LABS: Calcium 8.1 mg/dL (8.6-10.3); Potassium 4.2 mEq/L (3.5-5.1)
[2020-01-28] MEDS: Insulin DETEMIR 100 UNIT/ML X5UNITS SQ SCH (08:59)
[2020-01-28] MEDS: amLODIPine 5 MG TABLET PO SCH (08:59)
[2020-01-28] MEDS: Insulin LISPRO 300 UNITS/3 ML VIAL SQ SCH ×2 (09:00→12:14)
[2020-01-28 12:07] VITALS: BP 135/75
== END 2020-01-28 13:14 | disposition home or self-care (01) | DRG 464 ==
LOC: 2ANU 12:35 → EMEROOARM 12:35 → SUATTDRO 18:03 → 2ANU 19:54 → SUATTDRO 01-19 15:44
PROVIDERS: ADMIT Internal Medicine; ATTEND Family Medicine

== ENCOUNTER 2020-04-22 13:54 | Inpatient (IN) ==
[2020-04-22] MEDS ORDERED: Ondansetron ODT 4 MG TAB.RAPDIS SL ONE (14:23)
[2020-04-22] MEDS ORDERED: *HR* OxyCODONE Immed Rel 5 MG TABLET PO PRN (14:23)
[2020-04-22] MEDS ORDERED: Famotidine 20 MG/2 ML VIAL IVP ONE (14:23)
[2020-04-22] MEDS ORDERED: Acetaminophen IV 1,000 MG/100 ML BAG IVPB ONE (14:27)
[2020-04-22] MEDS ORDERED: *HR* FentaNYL (PF) 100 MCG/2 ML VIAL ONE (14:46)
[2020-04-22] MEDS ORDERED: *HR* Propofol 200 MG/20 ML VIAL IVP ONE (14:47)
[2020-04-22] MEDS ORDERED: *HR* Succinylcholine 200 MG/10 ML VIAL IVP ONE (14:49)
[2020-04-22] MEDS ORDERED: Ondansetron 4 MG/2 ML VIAL ONE (14:49)
[2020-04-22] MEDS ORDERED: Dexamethasone 4 MG/ML VIAL ONE (14:49)
[2020-04-22] MEDS ORDERED: Lidocaine -MPF 2% 2 ML VIAL ONE (14:49)
[2020-04-22 15:03] LABS: Basophils # 0.1 K/mcL (0.0-0.2); Basophils % 0.7 %; Eosinophils # 0.1 K/mcL (0.0-0.6); Eosinophils % 1.5 %; Hematocrit 38.7 % (37.5-50.1); Hemoglobin 12.6 g/dL (12.9-16.9); Immature Granulocytes % 0.3 % (0-4); Lymphocytes % 11.3 %; Mean Corpuscular HGB Conc 32.6 g/dL (31.6-35.5); Mean Corpuscular Hemoglobin 30.1 pg (28.0-33.3); Mean Corpuscular Volume 92.6 fL (83.0-100.0); Mean Platelet Volume 10.2 fL (9.4-12.4); Monocytes # 0.5 K/mcL (0.0-1.3); Monocytes % 5.7 %; Platelet Count 268 K/mcL (140-400); Red Blood Count 4.18 M/mcL (4.19-5.50); Red Cell Distribution Width 15.1 % (11.5-14.5); Segmented Neutrophils % 80.5 %; White Blood Count 8.6 K/mcL (4.3-11.1)
[2020-04-22] MEDS ORDERED: CeFAZolin Syr 2,000MG/20 ML 2,000 MG/20 ML SYRINGE IVPB ONE (15:09)
[2020-04-22 15:26] LABS: C-Reactive Protein < 5 mg/L (Less than 10)
[2020-04-22] MEDS ORDERED: Lidocaine/EPI 1:200k 1% PF 10 ML VIAL ONE (15:41)
[2020-04-22] MEDS: *HR* HYDROmorphone (PF) 1 MG/ML SYRINGE IVP PRN ×4 (17:11→17:26)
[2020-04-22] MEDS: *HR* FentaNYL (PF) 100 MCG/2 ML VIAL IVP PRN ×3 (17:27→17:38)
[2020-04-22 18:27] LABS: BUN/Creatinine Ratio 12 (6-26); Blood Urea Nitrogen 13 mg/dL (8-23); Calcium 7.9 mg/dL (8.6-10.3); Carbon Dioxide 21 mEq/L (23-29); Chloride 100 mEq/L (98-107); Glucose 182 mg/dL (70-105); Osmolality,Calculated 275 (280-300); Potassium 4.8 mEq/L (3.5-5.1); Sodium 130 mEq/L (136-145); eGFR For African Americans > 60 (> 60); eGFR For Non-African Americans > 60 (> 60)
[2020-04-22] MEDS ORDERED: *HR* Dextrose 50 % in Water (Vial) 50 ML VIAL IVP PRN (19:49)
[2020-04-22] MEDS ORDERED: D5% in Water 1,000 ML IVC PRN (19:49)
[2020-04-22] MEDS ORDERED: Naloxone 0.4 MG/ML INJ IVP PRN ×2 (19:49→20:40)
[2020-04-22] MEDS ORDERED: Dextrose Gel 15 GM/37.5 ML TUBE PO PRN ×2 (19:49)
[2020-04-22] MEDS ORDERED: Acetaminophen 325 MG TABLET PO PRN (19:49)
[2020-04-22] MEDS ORDERED: Insulin LISPRO 300 UNITS/3 ML VIAL SUBQ ONE (20:47)
[2020-04-22] MEDS: lisinopriL 10 MG TABLET PO SCH (21:22)
[2020-04-22] MEDS: Piperacillin/Tazobactam 3.375 GM in 0.9 % Sodium Chloride Mini Bag 100 ML IVPB SCH (21:23)
[2020-04-22] MEDS: *HR* OxyCODONE Immed Rel 5 MG TABLET PO PRN (21:23)
[2020-04-23] MEDS: Insulin LISPRO 300 UNITS/3 ML VIAL SUBQ SCH ×4 (01:10→17:49)
[2020-04-23] MEDS: Insulin DETEMIR 100 UNIT/ML X5UNITS SUBQ SCH ×2 (02:02→20:36)
[2020-04-23 07:38] LABS: Basophils # 0.1 K/mcL (0.0-0.2); Basophils % 0.5 %; Eosinophils % 0.4 %; Hematocrit 30.9 % (37.5-50.1); Immature Granulocytes % 0.3 % (0-4); Lymphocytes # 1.4 K/mcL (0.6-4.6); Lymphocytes % 14.6 %; Mean Corpuscular HGB Conc 33.3 g/dL (31.6-35.5); Mean Corpuscular Hemoglobin 31.2 pg (28.0-33.3); Mean Corpuscular Volume 93.6 fL (83.0-100.0); Mean Platelet Volume 10.2 fL (9.4-12.4); Monocytes # 0.7 K/mcL (0.0-1.3); Platelet Count 244 K/mcL (140-400); Red Cell Distribution Width 15.5 % (11.5-14.5); Segmented Neutrophils % 76.2 %; White Blood Count 9.3 K/mcL (4.3-11.1)
[2020-04-23 07:40] LABS: Hemoglobin 10.3 g/dL (12.9-16.9)
[2020-04-23 07:58] LABS: BUN/Creatinine Ratio 12 (6-26); Blood Urea Nitrogen 14 mg/dL (8-23); Calcium 7.8 mg/dL (8.6-10.3); Carbon Dioxide 22 mEq/L (23-29); Chloride 102 mEq/L (98-107); Glucose 166 mg/dL (70-105); Magnesium 1.9 mg/dL (1.6-2.6); Osmolality,Calculated 270 (280-300); Phosphorous 3.1 mg/dL (2.7-4.5); Potassium 4.5 mEq/L (3.5-5.1); Sodium 128 mEq/L (136-145); eGFR For African Americans > 60 (> 60); eGFR For Non-African Americans > 60 (> 60)
[2020-04-23 08:54] LABS: Estimated Average Glucose 326 mg/dl
[2020-04-23] MEDS: Piperacillin/Tazobactam 3.375 GM in 0.9 % Sodium Chloride Mini Bag 100 ML IVPB SCH ×2 (09:21→16:24)
[2020-04-23] MEDS: lisinopriL 10 MG TABLET PO SCH (09:21)
[2020-04-23] MEDS: *HR* OxyCODONE Immed Rel 5 MG TABLET PO PRN ×2 (09:36→16:29)
[2020-04-23] MEDS: *HR* Heparin 5,000 UNIT/ML VIAL SQ SCH (15:43)
[2020-04-24] MEDS: Insulin LISPRO 300 UNITS/3 ML VIAL SUBQ SCH ×6 (00:08→20:22)
[2020-04-24] MEDS: *HR* OxyCODONE Immed Rel 5 MG TABLET PO PRN ×3 (00:10→14:42)
[2020-04-24] MEDS: Piperacillin/Tazobactam 3.375 GM in 0.9 % Sodium Chloride Mini Bag 100 ML IVPB SCH ×4 (00:10→23:54)
[2020-04-24] MEDS: *HR* Heparin 5,000 UNIT/ML VIAL SQ SCH ×4 (00:10→23:54)
[2020-04-24 05:44] LABS: Hematocrit 30.1 % (37.5-50.1); Hemoglobin 9.8 g/dL (12.9-16.9); Mean Corpuscular HGB Conc 32.6 g/dL (31.6-35.5); Mean Corpuscular Hemoglobin 31.2 pg (28.0-33.3); Mean Corpuscular Volume 95.9 fL (83.0-100.0); Mean Platelet Volume 10.2 fL (9.4-12.4); Platelet Count 179 K/mcL (140-400); Red Blood Count 3.14 M/mcL (4.19-5.50); Red Cell Distribution Width 15.6 % (11.5-14.5); White Blood Count 7.7 K/mcL (4.3-11.1)
[2020-04-24 06:06] LABS: BUN/Creatinine Ratio 13 (6-26); Blood Urea Nitrogen 17 mg/dL (8-23); Calcium 7.2 mg/dL (8.6-10.3); Carbon Dioxide 22 mEq/L (23-29); Chloride 106 mEq/L (98-107); Glucose 144 mg/dL (70-105); Magnesium 1.8 mg/dL (1.6-2.6); Osmolality,Calculated 278 (280-300); Potassium 4.5 mEq/L (3.5-5.1); Sodium 132 mEq/L (136-145); eGFR For African Americans > 60 (> 60); eGFR For Non-African Americans 54 (> 60)
[2020-04-24] MEDS ORDERED: Insulin Regular, Human 100 UNIT/ML SUBQ PRN (07:33)
[2020-04-24] MEDS: lisinopriL 10 MG TABLET PO SCH (08:11)
[2020-04-24] MEDS: Ondansetron 4 MG/2 ML VIAL IVP PRN (18:27)
[2020-04-24] MEDS: Insulin DETEMIR 100 UNIT/ML X5UNITS SUBQ SCH (20:08)
[2020-04-25 01:57] LABS: Hemoglobin 10.5 g/dL (12.9-16.9); Mean Corpuscular HGB Conc 32.8 g/dL (31.6-35.5); Mean Corpuscular Hemoglobin 30.5 pg (28.0-33.3); Mean Platelet Volume 10.2 fL (9.4-12.4); Platelet Count 167 K/mcL (140-400); Red Blood Count 3.44 M/mcL (4.19-5.50); Red Cell Distribution Width 15.5 % (11.5-14.5); White Blood Count 7.8 K/mcL (4.3-11.1)
[2020-04-25 02:14] LABS: Calcium 7.6 mg/dL (8.6-10.3); Potassium 4.6 mEq/L (3.5-5.1)
[2020-04-25] MEDS: Ondansetron 4 MG/2 ML VIAL IVP PRN (02:24)
[2020-04-25] MEDS: *HR* OxyCODONE Immed Rel 5 MG TABLET PO PRN ×3 (07:35→21:11)
[2020-04-25] MEDS: Insulin LISPRO 300 UNITS/3 ML VIAL SUBQ SCH ×4 (07:35→21:12)
[2020-04-25] MEDS: amLODIPine 5 MG TABLET PO SCH (07:36)
[2020-04-25] MEDS: Piperacillin/Tazobactam 3.375 GM in 0.9 % Sodium Chloride Mini Bag 100 ML IVPB SCH ×2 (07:37→16:54)
[2020-04-25] MEDS: *HR* Heparin 5,000 UNIT/ML VIAL SQ SCH ×3 (07:37→23:57)
[2020-04-25] MEDS ORDERED: Insulin Regular, Human 100 UNIT/ML SUBQ PRN (15:57)
[2020-04-25] MEDS: Insulin DETEMIR 100 UNIT/ML X5UNITS SUBQ SCH (21:11)
[2020-04-26] MEDS: *HR* OxyCODONE Immed Rel 5 MG TABLET PO PRN ×5 (02:17→22:31)
[2020-04-26 04:02] LABS: BUN/Creatinine Ratio 14 (6-26); Blood Urea Nitrogen 15 mg/dL (8-23); Calcium 7.7 mg/dL (8.6-10.3); Carbon Dioxide 17 mEq/L (23-29); Chloride 107 mEq/L (98-107); Glucose 141 mg/dL (70-105); Osmolality,Calculated 275 (280-300); Potassium 4.7 mEq/L (3.5-5.1); Sodium 131 mEq/L (136-145); eGFR For African Americans > 60 (> 60); eGFR For Non-African Americans > 60 (> 60)
[2020-04-26] MEDS: Cefepime HCl 2,000 MG in 0.9 % Sodium Chloride Mini Bag 100 ML IVPB SCH ×2 (05:26→18:13)
[2020-04-26] MEDS: Ondansetron 4 MG/2 ML VIAL IVP PRN (05:28)
[2020-04-26] MEDS: Insulin LISPRO 300 UNITS/3 ML VIAL SUBQ SCH ×4 (07:18→20:35)
[2020-04-26] MEDS: amLODIPine 5 MG TABLET PO SCH (08:28)
[2020-04-26] MEDS: *HR* Heparin 5,000 UNIT/ML VIAL SQ SCH ×2 (08:29→16:22)
[2020-04-26 08:32] LABS: Hematocrit 34.4 % (37.5-50.1); Mean Corpuscular Hemoglobin 30.3 pg (28.0-33.3); Mean Corpuscular Volume 94.8 fL (83.0-100.0); Mean Platelet Volume 9.7 fL (9.4-12.4); Platelet Count 181 K/mcL (140-400); Red Blood Count 3.63 M/mcL (4.19-5.50); Red Cell Distribution Width 15.6 % (11.5-14.5); White Blood Count 8.1 K/mcL (4.3-11.1)
[2020-04-26] MEDS: Insulin DETEMIR 100 UNIT/ML X5UNITS SUBQ SCH (20:35)
[2020-04-27] MEDS: *HR* Heparin 5,000 UNIT/ML VIAL SQ SCH (01:20)
[2020-04-27] MEDS: *HR* OxyCODONE Immed Rel 5 MG TABLET PO PRN ×2 (02:37→09:22)
[2020-04-27] MEDS: Ondansetron 4 MG/2 ML VIAL IVP PRN (02:37)
[2020-04-27 03:44] LABS: Hematocrit 32.7 % (37.5-50.1); Mean Corpuscular HGB Conc 33.6 g/dL (31.6-35.5); Mean Corpuscular Hemoglobin 30.6 pg (28.0-33.3); Mean Corpuscular Volume 91.1 fL (83.0-100.0); Mean Platelet Volume 10.5 fL (9.4-12.4); Platelet Count 199 K/mcL (140-400); Red Blood Count 3.59 M/mcL (4.19-5.50); Red Cell Distribution Width 15.1 % (11.5-14.5); White Blood Count 8.9 K/mcL (4.3-11.1)
[2020-04-27 04:03] LABS: BUN/Creatinine Ratio 21 (6-26); Blood Urea Nitrogen 20 mg/dL (8-23); Calcium 8.2 mg/dL (8.6-10.3); Carbon Dioxide 18 mEq/L (23-29); Chloride 105 mEq/L (98-107); Glucose 93 mg/dL (70-105); Magnesium 1.7 mg/dL (1.6-2.6); Osmolality,Calculated 272 (280-300); Potassium 4.7 mEq/L (3.5-5.1); Sodium 130 mEq/L (136-145); eGFR For African Americans > 60 (> 60); eGFR For Non-African Americans > 60 (> 60)
[2020-04-27] MEDS: Cefepime HCl 2,000 MG in 0.9 % Sodium Chloride Mini Bag 100 ML IVPB SCH (05:41)
[2020-04-27 06:33] VITALS: BP 151/81
[2020-04-27] MEDS: Insulin LISPRO 300 UNITS/3 ML VIAL SUBQ SCH (07:54)
== END 2020-04-27 11:35 | disposition home or self-care (01) | DRG 629 ==
LOC: 3NENU 13:54 → SAMDAY 13:54 → SUATTDRO 18:05
PROVIDERS: ADMIT Family Medicine; ATTEND Internal Medicine

== ENCOUNTER 2020-06-06 10:42 | Inpatient (IN) ==
[2020-06-06] MEDS ORDERED: Isovue-370 500 ML BOTTLE IVP ONE (12:28)
[2020-06-06] MEDS ORDERED: Ondansetron 4 MG/2 ML VIAL IVP ONE (12:30)
[2020-06-06] MEDS ORDERED: 0.9 % Sodium Chloride 1,000 ML IVC ONE ×2 (12:30→14:17)
[2020-06-06] MEDS ORDERED: *HR* FentaNYL (PF) 100 MCG/2 ML VIAL IVP ONE (12:30)
[2020-06-06 13:45] LABS: Basophils % 0.2 %; Eosinophils % 0.3 %; Hematocrit 35.5 % (37.5-50.1); Hemoglobin 11.3 g/dL (12.9-16.9); Immature Granulocytes % 0.7 % (0-4); Lymphocytes # 0.7 K/mcL (0.6-4.6); Mean Corpuscular HGB Conc 31.8 g/dL (31.6-35.5); Mean Corpuscular Hemoglobin 30.9 pg (28.0-33.3); Mean Platelet Volume 11.3 fL (9.4-12.4); Monocytes # 0.4 K/mcL (0.0-1.3); Monocytes % 3.9 %; Neutrophils # 7.8 K/mcL (1.6-8.9); Platelet Count 159 K/mcL (140-400); Red Blood Count 3.66 M/mcL (4.19-5.50); Red Cell Distribution Width 15.3 % (11.5-14.5); Segmented Neutrophils % 86.9 %
[2020-06-06 14:06] LABS: Alanine Aminotransferase 58 Units/L (7-52); Albumin 2.9 g/dL (3.5-5.7); Albumin/Globulin Ratio 0.8 (1.1-2.2); Alkaline Phosphatase 1049 Units/L (34-104); Aspartate Amino Transferase 47 Units/L (13-39); BUN/Creatinine Ratio 8 (6-26); Bilirubin,Direct 0.4 mg/dL (0.0-0.2); Bilirubin,Indirect 0.5 mg/dL (0.0-1.0); Bilirubin,Total 0.9 mg/dL (0.3-1.0); Blood Urea Nitrogen 9 mg/dL (8-23); Calcium 7.4 mg/dL (8.6-10.3); Carbon Dioxide 23 mEq/L (23-29); Chloride 102 mEq/L (98-107); Globulin 3.7 g/dL (2.4-3.5); Glucose 427 mg/dL (70-105); Lipase 11 Units/L (11-82); Osmolality,Calculated 289 (280-300); Sodium 131 mEq/L (136-145); Total Protein 6.6 g/dL (6.4-8.9); Troponin I < 0.03 ng/mL (< 0.04); eGFR For African Americans > 60 (> 60); eGFR For Non-African Americans > 60 (> 60)
[2020-06-06 15:42] LABS: Bacteria,Urine Few per hpf (None-Few); Bilirubin,Urine Negative (Negative); Blood,Urine Negative (Negative); Clarity,Urine Clear (Clear); Color,Urine Light-Yellow (Yellow); Glucose,Urine (UA) >=1000 mg/dL (Normal); Ketones,Urine Negative (Negative); Leukocyte Esterase,Urine Negative (Negative); Nitrite,Urine Negative (Negative); Protein,Urine 30 mg/dL (Neg-Trace); RBC,Urine 0-3 per hpf (0-3); Urobilinogen,Urine Normal (Normal); WBC,Urine 0-3 per hpf (0-3)
[2020-06-06] MEDS ORDERED: Piperacillin/Tazobactam 3.375 GM in Water for inj. (sterile) 20 ML IVP ONE (16:14)
[2020-06-06] MEDS ORDERED: D5% in Water 1,000 ML IVC PRN (17:05)
[2020-06-06] MEDS ORDERED: Naloxone 0.4 MG/ML INJ IVP PRN (17:05)
[2020-06-06] MEDS ORDERED: Dextrose Gel 15 GM/37.5 ML TUBE PO PRN ×2 (17:05)
[2020-06-06] MEDS ORDERED: *HR* Dextrose 50 % in Water (Vial) 50 ML VIAL IVP PRN (17:05)
[2020-06-06 17:55] LABS: INR 1.1; Prothrombin Time 12.9 Seconds (9.4-12.1)
[2020-06-06] MEDS: Morphine Sulfate 2 MG/ML SYRINGE IVP PRN ×3 (18:01→22:05)
[2020-06-06] MEDS: Ondansetron 4 MG/2 ML VIAL IVP PRN (18:01)
[2020-06-06 18:14] LABS: Thyroid Stimulating Hormone 27.501 mcIU/mL (0.340-5.600)
[2020-06-06 18:44] LABS: Hepatitis B Surface Antigen Nonreactive (Nonreactive)
[2020-06-06 19:14] LABS: Hepatitis A Antibody IgM Nonreactive (Nonreactive); Hepatitis B Core IgM Nonreactive (Nonreactive)
[2020-06-06 19:15] LABS: Hepatitis C Virus Antibody Nonreactive (Nonreactive)
[2020-06-06] MEDS: Thiamine (B-1) 100 MG in 0.9 % Sodium Chloride 50 ML IVPB SCH (20:54)
[2020-06-06] MEDS: Insulin LISPRO 300 UNITS/3 ML VIAL SUBQ SCH (20:55)
[2020-06-06] MEDS ORDERED: Insulin DETEMIR 100 UNIT/ML X5UNITS SUBQ SCH (21:00)
[2020-06-07] MEDS: Morphine Sulfate 2 MG/ML SYRINGE IVP PRN ×8 (00:05→23:51)
[2020-06-07] MEDS: Piperacillin/Tazobactam 3.375 GM in 0.9 % Sodium Chloride Mini Bag 100 ML IVPB SCH ×4 (00:07→23:51)
[2020-06-07 05:00] LABS: Basophils % 0.2 %; Eosinophils # 0.1 K/mcL (0.0-0.6); Eosinophils % 1.1 %; Hematocrit 33.8 % (37.5-50.1); Hemoglobin 11.1 g/dL (12.9-16.9); Immature Granulocytes % 0.4 % (0-4); Lymphocytes # 1.3 K/mcL (0.6-4.6); Lymphocytes % 13.9 %; Mean Corpuscular HGB Conc 32.8 g/dL (31.6-35.5); Mean Corpuscular Hemoglobin 30.9 pg (28.0-33.3); Mean Corpuscular Volume 94.2 fL (83.0-100.0); Monocytes # 0.6 K/mcL (0.0-1.3); Monocytes % 6.1 %; Neutrophils # 7.2 K/mcL (1.6-8.9); Platelet Count 209 K/mcL (140-400); Red Blood Count 3.59 M/mcL (4.19-5.50); Red Cell Distribution Width 15.1 % (11.5-14.5); Segmented Neutrophils % 78.3 %; White Blood Count 9.2 K/mcL (4.3-11.1)
[2020-06-07] MEDS: Insulin LISPRO 300 UNITS/3 ML VIAL SUBQ SCH ×4 (09:03→21:13)
[2020-06-07 10:30] LABS: Protein/Creatinine Ratio,Urine 0.7 mg/mg (0.00-0.20)
[2020-06-07] MEDS: Ondansetron 4 MG/2 ML VIAL IVP PRN ×2 (13:18→23:50)
[2020-06-07 16:22] LABS: Appearance of Peritoneal Fl CLEAR (Clear)
[2020-06-07 16:25] LABS: RBC,Peritoneal Fluid < 2000 RBC/mcL
[2020-06-07 16:27] LABS: Glucose,Peritoneal Fluid 145 mg/dL (No Ref Range); LDH,Peritoneal Fluid < 25 Units/L (No Ref Range); Total Protein,Peritoneal Fluid < 2.0 g/dL
[2020-06-07 17:34] LABS: Basophils,Peritoneal Fluid 0 %; Eosinophils,Peritoneal Fluid 0 %
[2020-06-07] MEDS ORDERED: Furosemide 20 MG/2 ML VIAL IVP ONE (17:56)
[2020-06-07] MEDS: Thiamine (B-1) 100 MG in 0.9 % Sodium Chloride 50 ML IVPB SCH (19:05)
[2020-06-07 21:05] LABS: Alanine Aminotransferase 59 Units/L (7-52); Albumin 2.5 g/dL (3.5-5.7); Albumin/Globulin Ratio 0.8 (1.1-2.2); Alkaline Phosphatase 1050 Units/L (34-104); Aspartate Amino Transferase 96 Units/L (13-39); BUN/Creatinine Ratio 9 (6-26); Bilirubin,Total 0.9 mg/dL (0.3-1.0); Blood Urea Nitrogen 10 mg/dL (8-23); Calcium 7.2 mg/dL (8.6-10.3); Carbon Dioxide 19 mEq/L (23-29); Chloride 105 mEq/L (98-107); Chol/HDL Ratio 2.6 (0-4.9); Cholesterol 148 mg/dL (< 200); Globulin 3.3 g/dL (2.4-3.5); Glucose 185 mg/dL (70-105); HDL Cholesterol 58 mg/dL (40-59); LDL Cholesterol,Calculated 76 mg/dL (< 100); Magnesium 1.6 mg/dL (1.6-2.6); Osmolality,Calculated 276 (280-300); Phosphorous 2.3 mg/dL (2.7-4.5); Potassium 5.5 mEq/L (3.5-5.1); Sodium 131 mEq/L (136-145); Total Protein 5.8 g/dL (6.4-8.9); Triglycerides 71 mg/dL (< 150); eGFR For African Americans > 60 (> 60); eGFR For Non-African Americans > 60 (> 60)
[2020-06-07] MEDS: Insulin DETEMIR 100 UNIT/ML X5UNITS SUBQ SCH (22:25)
[2020-06-08] MEDS: Morphine Sulfate 2 MG/ML SYRINGE IVP PRN ×5 (03:21→19:51)
[2020-06-08 03:24] LABS: Hematocrit 31.5 % (37.5-50.1); Hemoglobin 10.3 g/dL (12.9-16.9); Mean Corpuscular HGB Conc 32.7 g/dL (31.6-35.5); Mean Corpuscular Hemoglobin 30.7 pg (28.0-33.3); Mean Platelet Volume 10.6 fL (9.4-12.4); Platelet Count 187 K/mcL (140-400); Red Blood Count 3.35 M/mcL (4.19-5.50); Red Cell Distribution Width 15.1 % (11.5-14.5); White Blood Count 9.2 K/mcL (4.3-11.1)
[2020-06-08 03:42] LABS: Alanine Aminotransferase 57 Units/L (7-52); Albumin 2.3 g/dL (3.5-5.7); Albumin/Globulin Ratio 0.7 (1.1-2.2); Alkaline Phosphatase 1008 Units/L (34-104); Aspartate Amino Transferase 93 Units/L (13-39); BUN/Creatinine Ratio 10 (6-26); Bilirubin,Total 0.9 mg/dL (0.3-1.0); Blood Urea Nitrogen 12 mg/dL (8-23); Carbon Dioxide 20 mEq/L (23-29); Chloride 105 mEq/L (98-107); Globulin 3.1 g/dL (2.4-3.5); Glucose 201 mg/dL (70-105); Magnesium 1.6 mg/dL (1.6-2.6); Osmolality,Calculated 279 (280-300); Potassium 4.6 mEq/L (3.5-5.1); Sodium 132 mEq/L (136-145); Total Protein 5.4 g/dL (6.4-8.9); eGFR For African Americans > 60 (> 60); eGFR For Non-African Americans 58 (> 60)
[2020-06-08] MEDS: Insulin LISPRO 300 UNITS/3 ML VIAL SUBQ SCH ×5 (08:03→21:51)
[2020-06-08] MEDS: Piperacillin/Tazobactam 3.375 GM in 0.9 % Sodium Chloride Mini Bag 100 ML IVPB SCH (08:06)
[2020-06-08] MEDS: Thiamine (B-1) 100 MG in 0.9 % Sodium Chloride 50 ML IVPB SCH (08:37)
[2020-06-08] MEDS ORDERED: Morphine Sulfate Oral CONC 10 MG/0.5 ML ORAL.SYG SL PRN (15:18)
[2020-06-08] MEDS: Ondansetron 4 MG/2 ML VIAL IVP PRN (15:23)
[2020-06-08] MEDS: Insulin DETEMIR 100 UNIT/ML X5UNITS SUBQ SCH (21:52)
[2020-06-09] MEDS: Morphine Sulfate 2 MG/ML SYRINGE IVP PRN ×3 (00:36→07:45)
[2020-06-09] MEDS: Ondansetron 4 MG/2 ML VIAL IVP PRN ×2 (00:38→09:22)
[2020-06-09 03:40] LABS: Basophils % 0.4 %; Eosinophils # 0.1 K/mcL (0.0-0.6); Eosinophils % 0.8 %; Hematocrit 34.1 % (37.5-50.1); Hemoglobin 10.9 g/dL (12.9-16.9); Immature Granulocytes % 0.4 % (0-4); Lymphocytes # 1.1 K/mcL (0.6-4.6); Lymphocytes % 14.7 %; Mean Corpuscular Hemoglobin 31.1 pg (28.0-33.3); Mean Corpuscular Volume 97.2 fL (83.0-100.0); Mean Platelet Volume 10.7 fL (9.4-12.4); Monocytes # 0.5 K/mcL (0.0-1.3); Monocytes % 6.5 %; Neutrophils # 5.7 K/mcL (1.6-8.9); Platelet Count 209 K/mcL (140-400); Red Blood Count 3.51 M/mcL (4.19-5.50); Red Cell Distribution Width 15.2 % (11.5-14.5); Segmented Neutrophils % 77.2 %; White Blood Count 7.4 K/mcL (4.3-11.1)
[2020-06-09 04:02] LABS: % Iron Saturation 12 % (20-55); Alanine Aminotransferase 51 Units/L (7-52); Albumin 2.5 g/dL (3.5-5.7); Albumin/Globulin Ratio 0.8 (1.1-2.2); Alkaline Phosphatase 977 Units/L (34-104); Aspartate Amino Transferase 61 Units/L (13-39); BUN/Creatinine Ratio 9 (6-26); Bilirubin,Total 0.7 mg/dL (0.3-1.0); Blood Urea Nitrogen 13 mg/dL (8-23); Calcium 7.3 mg/dL (8.6-10.3); Carbon Dioxide 21 mEq/L (23-29); Chloride 106 mEq/L (98-107); Globulin 3.3 g/dL (2.4-3.5); Glucose 87 mg/dL (70-105); Iron 31 mcg/dL (65-175); Osmolality,Calculated 275 (280-300); Potassium 4.2 mEq/L (3.5-5.1); Sodium 133 mEq/L (136-145); Total Protein 5.8 g/dL (6.4-8.9); Transferrin 179 mg/dL (203-362); eGFR For African Americans > 60 (> 60); eGFR For Non-African Americans 52 (> 60)
[2020-06-09 04:24] LABS: Folate 9.8 ng/mL (3.0-16.0)
[2020-06-09 05:16] LABS: Ferritin 15 ng/mL (20-250)
[2020-06-09] MEDS: Thiamine (B-1) 100 MG in 0.9 % Sodium Chloride 50 ML IVPB SCH (07:45)
[2020-06-09] MEDS: Insulin LISPRO 300 UNITS/3 ML VIAL SUBQ SCH ×4 (07:49→20:34)
[2020-06-09] MEDS ORDERED: Morphine Sulfate 2 MG/ML SYRINGE IVP PRN (07:53)
[2020-06-09] MEDS: *HR* OxyCODONE ER (12 HR) 10 MG TABLET PO SCH ×2 (09:19→20:40)
[2020-06-09] MEDS: Gabapentin 100 MG CAPSULE PO SCH ×3 (09:19→20:40)
[2020-06-09] MEDS: MOM Conc 10 ML UD.LIQ PO PRN (13:04)
[2020-06-09] MEDS: amLODIPine 5 MG TABLET PO SCH (13:04)
[2020-06-09] MEDS ORDERED: Metoclopramide 10 MG/2 ML VIAL IVP ONE (14:49)
[2020-06-09] MEDS: *HR* Heparin 5,000 UNIT/ML VIAL SQ SCH (16:54)
[2020-06-09] MEDS: Insulin DETEMIR 100 UNIT/ML X5UNITS SUBQ SCH (20:42)
[2020-06-10 03:39] LABS: Fluid Source for Triglycerides PERITONEAL FL
[2020-06-10] MEDS: *HR* Heparin 5,000 UNIT/ML VIAL SQ SCH ×2 (05:02→18:56)
[2020-06-10 05:29] LABS: Basophils % 0.5 %; Eosinophils # 0.1 K/mcL (0.0-0.6); Eosinophils % 1.4 %; Hematocrit 32.8 % (37.5-50.1); Hemoglobin 10.6 g/dL (12.9-16.9); Immature Granulocytes % 0.6 % (0-4); Lymphocytes # 1.4 K/mcL (0.6-4.6); Lymphocytes % 17.9 %; Mean Corpuscular HGB Conc 32.3 g/dL (31.6-35.5); Mean Corpuscular Hemoglobin 30.5 pg (28.0-33.3); Mean Corpuscular Volume 94.5 fL (83.0-100.0); Mean Platelet Volume 10.8 fL (9.4-12.4); Monocytes # 0.5 K/mcL (0.0-1.3); Monocytes % 6.7 %; Neutrophils # 5.8 K/mcL (1.6-8.9); Platelet Count 202 K/mcL (140-400); Red Blood Count 3.47 M/mcL (4.19-5.50); Red Cell Distribution Width 14.8 % (11.5-14.5); Segmented Neutrophils % 72.9 %
[2020-06-10 05:40] LABS: BUN/Creatinine Ratio 12 (6-26); Blood Urea Nitrogen 13 mg/dL (8-23); Calcium 7.2 mg/dL (8.6-10.3); Carbon Dioxide 22 mEq/L (23-29); Chloride 107 mEq/L (98-107); Glucose 76 mg/dL (70-105); Osmolality,Calculated 275 (280-300); Potassium 4.4 mEq/L (3.5-5.1); Sodium 133 mEq/L (136-145); eGFR For African Americans > 60 (> 60); eGFR For Non-African Americans > 60 (> 60)
[2020-06-10] MEDS: Insulin DETEMIR 100 UNIT/ML X5UNITS SUBQ SCH ×2 (09:23→22:02)
[2020-06-10] MEDS: Insulin LISPRO 300 UNITS/3 ML VIAL SUBQ SCH ×4 (09:23→20:41)
[2020-06-10] MEDS: amLODIPine 5 MG TABLET PO SCH (09:38)
[2020-06-10] MEDS: Gabapentin 100 MG CAPSULE PO SCH ×3 (09:39→20:43)
[2020-06-10] MEDS: *HR* OxyCODONE ER (12 HR) 10 MG TABLET PO SCH ×2 (09:39→20:43)
[2020-06-10] MEDS: Thiamine (B-1) 100 MG in 0.9 % Sodium Chloride 50 ML IVPB SCH (09:43)
[2020-06-10] MEDS ORDERED: D5% in 0.9% NACL 1,000 ML IVC SCH (10:15)
[2020-06-10 10:43] LABS: Triglycerides,Body Fluid 13 mg/dL
[2020-06-10 16:45] LABS: Fluid Source for Albumin PERITONEAL FL
[2020-06-10] MEDS ORDERED: *HR* FentaNYL (PF) 100 MCG/2 ML VIAL ONE (16:51)
[2020-06-10] MEDS ORDERED: *HR* Propofol 200 MG/20 ML VIAL IVP ONE (16:51)
[2020-06-10] MEDS ORDERED: Lidocaine -MPF 2% 2 ML VIAL ONE (16:53)
[2020-06-10] MEDS ORDERED: *HR* HYDROcodone/Acet 5/325 mg TABLET PO PRN (18:21)
[2020-06-10] MEDS ORDERED: *HR* Labetalol 20 MG/4 ML SYRINGE IVP PRN (18:21)
[2020-06-10] MEDS ORDERED: *HR* HYDROmorphone PF 0.5 MG/0.5 ML SYRINGE IVP PRN (18:21)
[2020-06-10] MEDS ORDERED: Ondansetron 4 MG/2 ML VIAL IVP PRN (18:21)
[2020-06-10] MEDS ORDERED: Lidocaine/EPI 1:100k 1% 50 ML VIAL ONE (18:25)
[2020-06-10] MEDS ORDERED: Ondansetron 4 MG/2 ML VIAL ONE (18:59)
[2020-06-11] MEDS: *HR* Heparin 5,000 UNIT/ML VIAL SQ SCH ×2 (05:32→16:47)
[2020-06-11] MEDS ORDERED: Ondansetron ODT 4 MG TAB.RAPDIS SL ONE (05:39)
[2020-06-11] MEDS: Insulin DETEMIR 100 UNIT/ML X5UNITS SUBQ SCH ×2 (07:18→20:28)
[2020-06-11] MEDS: Gabapentin 100 MG CAPSULE PO SCH ×3 (07:18→20:27)
[2020-06-11] MEDS: *HR* OxyCODONE ER (12 HR) 10 MG TABLET PO SCH ×2 (07:18→13:00)
[2020-06-11] MEDS: Thiamine (B-1) 100 MG TABLET PO SCH (07:18)
[2020-06-11] MEDS: amLODIPine 5 MG TABLET PO SCH (07:18)
[2020-06-11] MEDS: Insulin LISPRO 300 UNITS/3 ML VIAL SUBQ SCH ×4 (07:25→20:33)
[2020-06-11 07:31] LABS: Basophils % 0.2 %; Immature Granulocytes % 1.5 % (0-4)
[2020-06-11 07:33] LABS: Hematocrit 34.8 % (37.5-50.1); Hemoglobin 11.4 g/dL (12.9-16.9); Mean Corpuscular HGB Conc 32.8 g/dL (31.6-35.5); Mean Corpuscular Volume 94.6 fL (83.0-100.0); Mean Platelet Volume 11.6 fL (9.4-12.4); Monocytes # 0.6 K/mcL (0.0-1.3); Monocytes % 5.3 %; Neutrophils # 10.1 K/mcL (1.6-8.9); Platelet Count 204 K/mcL (140-400); Red Blood Count 3.68 M/mcL (4.19-5.50); Red Cell Distribution Width 15.2 % (11.5-14.5); White Blood Count 11.9 K/mcL (4.3-11.1)
[2020-06-11 07:37] LABS: BUN/Creatinine Ratio 14 (6-26); Blood Urea Nitrogen 17 mg/dL (8-23); Calcium 7.7 mg/dL (8.6-10.3); Carbon Dioxide 18 mEq/L (23-29); Chloride 104 mEq/L (98-107); Glucose 357 mg/dL (70-105); Osmolality,Calculated 288 (280-300); Potassium 5.1 mEq/L (3.5-5.1); Sodium 131 mEq/L (136-145); eGFR For African Americans > 60 (> 60); eGFR For Non-African Americans 59 (> 60)
[2020-06-11] MEDS ORDERED: Ampicillin/Sulbactam 3,000 MG in 0.9 % Sodium Chloride Mini Bag 100 ML IVPB SCH (09:00)
[2020-06-11] MEDS: Ondansetron ODT 4 MG TAB.RAPDIS SL PRN (16:48)
[2020-06-11] MEDS: *HR* Promethazine 25 MG/ML VIAL IM PRN (17:58)
[2020-06-11] MEDS: Sennosides/Docusate Sodium TABLET PO SCH (20:27)
[2020-06-11 22:55] LABS: Alkaline Phosphatase 1132 U/L (40-120); Alkaline Phosphatase Bone 204 U/L (0-55)
[2020-06-12] MEDS: *HR* OxyCODONE ER (12 HR) 10 MG TABLET PO SCH ×2 (00:11→11:20)
[2020-06-12 02:38] LABS: Alpha 2 Globulin (PEP) 0.45 g/dL (0.48-1.05); Beta Globulin (PEP) 0.55 g/dL (0.48-1.10)
[2020-06-12] MEDS: Ondansetron ODT 4 MG TAB.RAPDIS SL PRN (03:33)
[2020-06-12] MEDS: *HR* Heparin 5,000 UNIT/ML VIAL SQ SCH ×2 (05:24→16:57)
[2020-06-12 07:22] LABS: Basophils % 0.2 %; Eosinophils # 0.1 K/mcL (0.0-0.6); Eosinophils % 0.8 %; Hematocrit 33.8 % (37.5-50.1); Hemoglobin 10.9 g/dL (12.9-16.9); Immature Granulocytes % 0.4 % (0-4); Lymphocytes # 1.5 K/mcL (0.6-4.6); Lymphocytes % 11.4 %; Mean Corpuscular HGB Conc 32.2 g/dL (31.6-35.5); Mean Corpuscular Hemoglobin 30.4 pg (28.0-33.3); Mean Corpuscular Volume 94.2 fL (83.0-100.0); Mean Platelet Volume 11.2 fL (9.4-12.4); Monocytes % 7.2 %; Neutrophils # 10.7 K/mcL (1.6-8.9); Platelet Count 247 K/mcL (140-400); Red Blood Count 3.59 M/mcL (4.19-5.50); White Blood Count 13.4 K/mcL (4.3-11.1)
[2020-06-12 07:29] LABS: BUN/Creatinine Ratio 15 (6-26); Blood Urea Nitrogen 18 mg/dL (8-23); Calcium 7.8 mg/dL (8.6-10.3); Carbon Dioxide 20 mEq/L (23-29); Chloride 109 mEq/L (98-107); Glucose 44 mg/dL (70-105); Osmolality,Calculated 279 (280-300); Potassium 5.1 mEq/L (3.5-5.1); Sodium 135 mEq/L (136-145); eGFR For African Americans > 60 (> 60); eGFR For Non-African Americans > 60 (> 60)
[2020-06-12 07:31] LABS: Alkaline Phosphatase Liver 928 U/L (0-94); Alkaline Phosphatase Other 0 U/L
[2020-06-12] MEDS: Insulin LISPRO 300 UNITS/3 ML VIAL SUBQ SCH ×3 (08:23→17:37)
[2020-06-12 11:03] LABS: IFE Reflexed IFE Done; Immunoglobulin A 393 mg/dL (68-408); Immunoglobulin G 732 mg/dL (768-1632); Immunoglobulin M 27 mg/dL (35-263)
[2020-06-12] MEDS: Thiamine (B-1) 100 MG TABLET PO SCH (11:19)
[2020-06-12] MEDS: Sennosides/Docusate Sodium TABLET PO SCH ×2 (11:19→21:37)
[2020-06-12] MEDS: Gabapentin 100 MG CAPSULE PO SCH ×3 (11:20→21:37)
[2020-06-12] MEDS: amLODIPine 5 MG TABLET PO SCH (11:20)
[2020-06-12] MEDS: Insulin DETEMIR 100 UNIT/ML X5UNITS SUBQ SCH (11:45)
[2020-06-12] MEDS: *HR* Promethazine 25 MG/ML VIAL IM PRN (11:51)
[2020-06-12 12:27] LABS: Albumin 2.7 g/dL (3.5-5.7); Albumin/Globulin Ratio 0.8 (1.1-2.2); Bilirubin,Direct 0.4 mg/dL (0.0-0.2); Bilirubin,Indirect 0.4 mg/dL (0.0-1.0); Bilirubin,Total 0.8 mg/dL (0.3-1.0); Globulin 3.5 g/dL (2.4-3.5); Total Protein 6.2 g/dL (6.4-8.9)
[2020-06-12] MEDS: MOM Conc 10 ML UD.LIQ PO PRN (16:57)
[2020-06-13 05:49] LABS: Basophils % 0.4 %; Eosinophils # 0.1 K/mcL (0.0-0.6); Eosinophils % 0.8 %; Hematocrit 34.3 % (37.5-50.1); Hemoglobin 11.2 g/dL (12.9-16.9); Immature Granulocytes % 0.8 % (0-4); Lymphocytes # 1.3 K/mcL (0.6-4.6); Lymphocytes % 12.6 %; Mean Corpuscular HGB Conc 32.7 g/dL (31.6-35.5); Mean Platelet Volume 10.9 fL (9.4-12.4); Monocytes # 0.5 K/mcL (0.0-1.3); Monocytes % 5.1 %; Neutrophils # 8.3 K/mcL (1.6-8.9); Platelet Count 228 K/mcL (140-400); Red Blood Count 3.61 M/mcL (4.19-5.50); Segmented Neutrophils % 80.3 %; White Blood Count 10.3 K/mcL (4.3-11.1)
[2020-06-13] MEDS: *HR* Heparin 5,000 UNIT/ML VIAL SQ SCH ×2 (06:34→17:48)
[2020-06-13 06:42] LABS: BUN/Creatinine Ratio 13 (6-26); Blood Urea Nitrogen 17 mg/dL (8-23); Calcium 7.9 mg/dL (8.6-10.3); Carbon Dioxide 19 mEq/L (23-29); Chloride 106 mEq/L (98-107); Glucose 279 mg/dL (70-105); Osmolality,Calculated 290 (280-300); Potassium 5.6 mEq/L (3.5-5.1); Sodium 134 mEq/L (136-145); eGFR For African Americans > 60 (> 60); eGFR For Non-African Americans 53 (> 60)
[2020-06-13] MEDS ORDERED: Albumin 25% 25gram/100mL 25 GM/100 ML IV.SOLN IVPB ONE (07:29)
[2020-06-13] MEDS: Mag Hydrox/Al Hydrox/Simeth 30 ML UDC PO PRN ×3 (08:34→23:38)
[2020-06-13] MEDS: Gabapentin 100 MG CAPSULE PO SCH ×3 (08:36→20:24)
[2020-06-13] MEDS: amLODIPine 5 MG TABLET PO SCH (08:36)
[2020-06-13] MEDS: Thiamine (B-1) 100 MG TABLET PO SCH (08:36)
[2020-06-13] MEDS: Sennosides/Docusate Sodium TABLET PO SCH ×2 (08:36→20:23)
[2020-06-13] MEDS: Insulin LISPRO 300 UNITS/3 ML VIAL SUBQ SCH ×3 (08:37→17:46)
[2020-06-13] MEDS: Insulin DETEMIR 100 UNIT/ML X5UNITS SUBQ SCH (11:53)
[2020-06-13] MEDS: *HR* OxyCODONE ER (12 HR) 10 MG TABLET PO SCH ×2 (14:04)
[2020-06-13] MEDS: Ondansetron ODT 4 MG TAB.RAPDIS SL PRN (15:54)
[2020-06-13] MEDS: *HR* Promethazine 25 MG/ML VIAL IM PRN (20:22)
[2020-06-14] MEDS: *HR* OxyCODONE ER (12 HR) 10 MG TABLET PO SCH ×2 (00:40→12:16)
[2020-06-14] MEDS ORDERED: Morphine Sulfate 2 MG/ML SYRINGE IVP ONE (00:54)
[2020-06-14] MEDS ORDERED: Ondansetron 4 MG/2 ML VIAL IVP ONE (00:58)
[2020-06-14 01:28] LABS: Basophils % 0.2 %; Eosinophils # 0.1 K/mcL (0.0-0.6); Eosinophils % 0.6 %; Hematocrit 29.5 % (37.5-50.1); Immature Granulocytes % 0.4 % (0-4); Lymphocytes # 1.2 K/mcL (0.6-4.6); Mean Corpuscular HGB Conc 32.5 g/dL (31.6-35.5); Mean Corpuscular Hemoglobin 30.6 pg (28.0-33.3); Mean Corpuscular Volume 93.9 fL (83.0-100.0); Mean Platelet Volume 10.6 fL (9.4-12.4); Monocytes # 0.6 K/mcL (0.0-1.3); Neutrophils # 8.7 K/mcL (1.6-8.9); Platelet Count 230 K/mcL (140-400); Red Blood Count 3.14 M/mcL (4.19-5.50); Red Cell Distribution Width 15.3 % (11.5-14.5); Segmented Neutrophils % 81.8 %; White Blood Count 10.6 K/mcL (4.3-11.1)
[2020-06-14 01:29] LABS: Hemoglobin 9.6 g/dL (12.9-16.9)
[2020-06-14 02:19] LABS: Alanine Aminotransferase 44 Units/L (7-52); Albumin/Globulin Ratio 0.9 (1.1-2.2); Alkaline Phosphatase 948 Units/L (34-104); Aspartate Amino Transferase 77 Units/L (13-39); BUN/Creatinine Ratio 17 (6-26); Bilirubin,Total 0.9 mg/dL (0.3-1.0); Blood Urea Nitrogen 19 mg/dL (8-23); Calcium 7.8 mg/dL (8.6-10.3); Carbon Dioxide 19 mEq/L (23-29); Chloride 106 mEq/L (98-107); Globulin 3.2 g/dL (2.4-3.5); Glucose 103 mg/dL (70-105); Osmolality,Calculated 281 (280-300); Potassium 5.3 mEq/L (3.5-5.1); Sodium 134 mEq/L (136-145); Total Protein 6.2 g/dL (6.4-8.9); eGFR For African Americans > 60 (> 60); eGFR For Non-African Americans > 60 (> 60)
[2020-06-14] MEDS: *HR* Promethazine 25 MG/ML VIAL IM PRN (05:34)
[2020-06-14] MEDS: *HR* Heparin 5,000 UNIT/ML VIAL SQ SCH ×2 (05:34→16:10)
[2020-06-14] MEDS: Insulin LISPRO 300 UNITS/3 ML VIAL SUBQ SCH ×3 (06:00→19:44)
[2020-06-14] MEDS: Ondansetron ODT 4 MG TAB.RAPDIS SL PRN (08:44)
[2020-06-14] MEDS: Gabapentin 100 MG CAPSULE PO SCH ×3 (08:45→21:47)
[2020-06-14] MEDS: Insulin DETEMIR 100 UNIT/ML X5UNITS SUBQ SCH (08:45)
[2020-06-14] MEDS: amLODIPine 5 MG TABLET PO SCH (08:45)
[2020-06-14] MEDS: Sennosides/Docusate Sodium TABLET PO SCH ×2 (08:46→21:47)
[2020-06-14] MEDS: Thiamine (B-1) 100 MG TABLET PO SCH (08:46)
[2020-06-14] MEDS ORDERED: Metoclopramide 10 MG/2 ML VIAL IVP ONE (09:56)
[2020-06-14] MEDS: Pantoprazole 40 MG VIAL IVP SCH (10:18)
[2020-06-14] MEDS: Furosemide 20 MG/2 ML VIAL IVP SCH (10:19)
[2020-06-14 11:00] LABS: Hematocrit 29.7 % (37.5-50.1); Hemoglobin 9.7 g/dL (12.9-16.9)
[2020-06-15] MEDS: *HR* OxyCODONE ER (12 HR) 10 MG TABLET PO SCH ×3 (00:51→22:48)
[2020-06-15] MEDS: *HR* Heparin 5,000 UNIT/ML VIAL SQ SCH (05:37)
[2020-06-15] MEDS: Pantoprazole 40 MG VIAL IVP SCH (08:03)
[2020-06-15] MEDS: Insulin LISPRO 300 UNITS/3 ML VIAL SUBQ SCH ×4 (08:03→21:46)
[2020-06-15] MEDS: Gabapentin 100 MG CAPSULE PO SCH ×3 (08:03→20:28)
[2020-06-15] MEDS: Thiamine (B-1) 100 MG TABLET PO SCH (08:03)
[2020-06-15] MEDS: Furosemide 20 MG/2 ML VIAL IVP SCH (08:03)
[2020-06-15] MEDS: Sennosides/Docusate Sodium TABLET PO SCH ×2 (08:03→20:28)
[2020-06-15] MEDS: amLODIPine 5 MG TABLET PO SCH (08:03)
[2020-06-15] MEDS: Insulin DETEMIR 100 UNIT/ML X5UNITS SUBQ SCH (08:10)
[2020-06-15 08:53] LABS: Hematocrit 26.9 % (37.5-50.1); Hemoglobin 8.6 g/dL (12.9-16.9); Mean Corpuscular Hemoglobin 30.7 pg (28.0-33.3); Mean Corpuscular Volume 96.1 fL (83.0-100.0); Mean Platelet Volume 11.1 fL (9.4-12.4); Platelet Count 192 K/mcL (140-400); Red Cell Distribution Width 15.6 % (11.5-14.5); White Blood Count 7.2 K/mcL (4.3-11.1)
[2020-06-15 09:06] LABS: BUN/Creatinine Ratio 14 (6-26); Blood Urea Nitrogen 19 mg/dL (8-23); Calcium 7.5 mg/dL (8.6-10.3); Carbon Dioxide 23 mEq/L (23-29); Chloride 104 mEq/L (98-107); Glucose 272 mg/dL (70-105); Osmolality,Calculated 286 (280-300); Potassium 4.3 mEq/L (3.5-5.1); Sodium 132 mEq/L (136-145); eGFR For African Americans > 60 (> 60); eGFR For Non-African Americans 52 (> 60)
[2020-06-15 14:35] LABS: % Iron Saturation 14 % (20-55); Iron 39 mcg/dL (65-175); Transferrin 196 mg/dL (203-362)
[2020-06-15 15:00] LABS: Folate 12.6 ng/mL (3.0-16.0)
[2020-06-16 05:17] LABS: Hemoglobin 8.1 g/dL (12.9-16.9); Mean Corpuscular HGB Conc 32.4 g/dL (31.6-35.5); Mean Corpuscular Volume 95.8 fL (83.0-100.0); Mean Platelet Volume 10.1 fL (9.4-12.4); Platelet Count 168 K/mcL (140-400); Red Blood Count 2.61 M/mcL (4.19-5.50); Red Cell Distribution Width 15.6 % (11.5-14.5)
[2020-06-16 05:36] LABS: Alanine Aminotransferase 27 Units/L (7-52); Albumin 2.3 g/dL (3.5-5.7); Albumin/Globulin Ratio 0.8 (1.1-2.2); Alkaline Phosphatase 773 Units/L (34-104); Aspartate Amino Transferase 32 Units/L (13-39); BUN/Creatinine Ratio 13 (6-26); Bilirubin,Total 0.5 mg/dL (0.3-1.0); Blood Urea Nitrogen 18 mg/dL (8-23); Calcium 7.3 mg/dL (8.6-10.3); Carbon Dioxide 24 mEq/L (23-29); Chloride 103 mEq/L (98-107); Globulin 2.8 g/dL (2.4-3.5); Glucose 93 mg/dL (70-105); Osmolality,Calculated 276 (280-300); Potassium 4.3 mEq/L (3.5-5.1); Sodium 132 mEq/L (136-145); Total Protein 5.1 g/dL (6.4-8.9); eGFR For African Americans > 60 (> 60); eGFR For Non-African Americans 52 (> 60)
[2020-06-16] MEDS: Insulin DETEMIR 100 UNIT/ML X5UNITS SUBQ SCH (07:38)
[2020-06-16] MEDS: Insulin LISPRO 300 UNITS/3 ML VIAL SUBQ SCH ×4 (07:38→20:51)
[2020-06-16] MEDS: Sennosides/Docusate Sodium TABLET PO SCH ×2 (07:52→20:46)
[2020-06-16] MEDS: Thiamine (B-1) 100 MG TABLET PO SCH (07:52)
[2020-06-16] MEDS: Cyanocobalamin (B-12) 1,000 MCG TABLET PO SCH (07:52)
[2020-06-16] MEDS: amLODIPine 5 MG TABLET PO SCH (07:52)
[2020-06-16] MEDS: Gabapentin 100 MG CAPSULE PO SCH ×3 (07:52→20:46)
[2020-06-16] MEDS: Pantoprazole 40 MG VIAL IVP SCH (07:53)
[2020-06-16 08:18] LABS: VBG Ionized Calcium 1.08 mmol/L (1.15-1.35)
[2020-06-16] MEDS ORDERED: Lidocaine -MPF 2% 2 ML VIAL ONE (11:17)
[2020-06-16] MEDS ORDERED: *HR* Propofol 200 MG/20 ML VIAL IVP ONE (11:18)
[2020-06-16] MEDS ORDERED: Calcium Gluconate 1gm/50mL 1 GM/50 ML BAG IVPB ONE (11:36)
[2020-06-16] MEDS: *HR* OxyCODONE ER (12 HR) 10 MG TABLET PO SCH (12:35)
[2020-06-17] MEDS: *HR* OxyCODONE ER (12 HR) 10 MG TABLET PO SCH ×2 (00:33→11:59)
[2020-06-17 04:21] LABS: Hematocrit 26.3 % (37.5-50.1); Hemoglobin 8.5 g/dL (12.9-16.9); Mean Corpuscular HGB Conc 32.3 g/dL (31.6-35.5); Mean Corpuscular Hemoglobin 30.9 pg (28.0-33.3); Mean Corpuscular Volume 95.6 fL (83.0-100.0); Mean Platelet Volume 10.5 fL (9.4-12.4); Platelet Count 177 K/mcL (140-400); Red Blood Count 2.75 M/mcL (4.19-5.50); Red Cell Distribution Width 15.6 % (11.5-14.5)
[2020-06-17 04:35] LABS: Calcium 7.4 mg/dL (8.6-10.3); Potassium 4.5 mEq/L (3.5-5.1)
[2020-06-17] MEDS: Mag Hydrox/Al Hydrox/Simeth 30 ML UDC PO PRN ×2 (05:55→15:43)
[2020-06-17] MEDS ORDERED: Furosemide 20 MG TABLET PO SCH (09:00)
[2020-06-17] MEDS: amLODIPine 5 MG TABLET PO SCH (09:27)
[2020-06-17] MEDS: Sennosides/Docusate Sodium TABLET PO SCH ×2 (09:27→20:12)
[2020-06-17] MEDS: Cyanocobalamin (B-12) 1,000 MCG TABLET PO SCH (09:27)
[2020-06-17] MEDS: Gabapentin 100 MG CAPSULE PO SCH ×3 (09:27→20:12)
[2020-06-17] MEDS: Thiamine (B-1) 100 MG TABLET PO SCH (09:27)
[2020-06-17] MEDS: Insulin DETEMIR 100 UNIT/ML X5UNITS SUBQ SCH (09:28)
[2020-06-17] MEDS: Insulin LISPRO 300 UNITS/3 ML VIAL SUBQ SCH ×4 (09:31→21:11)
[2020-06-18] MEDS: *HR* OxyCODONE ER (12 HR) 10 MG TABLET PO SCH (00:15)
[2020-06-18 07:56] VITALS: BP 125/71
[2020-06-18] MEDS: Insulin LISPRO 300 UNITS/3 ML VIAL SUBQ SCH ×2 (09:05→09:16)
[2020-06-18] MEDS: Insulin DETEMIR 100 UNIT/ML X5UNITS SUBQ SCH (09:16)
[2020-06-18] MEDS: Gabapentin 100 MG CAPSULE PO SCH (09:16)
[2020-06-18] MEDS: Thiamine (B-1) 100 MG TABLET PO SCH (09:16)
[2020-06-18] MEDS: amLODIPine 5 MG TABLET PO SCH (09:17)
[2020-06-18] MEDS: Cyanocobalamin (B-12) 1,000 MCG TABLET PO SCH (09:17)
[2020-06-18] MEDS: Sennosides/Docusate Sodium TABLET PO SCH (09:17)
== END 2020-06-18 13:16 | disposition left against medical advice (07) | DRG 988 ==
LOC: EMEROOARM 10:42 → 3ANU 10:42 → SUATTDRO 17:01 → 3ANU 17:28
PROVIDERS: ADMIT Family Medicine; ATTEND General Practice
PROC: ENDOEBX (2020-06-16 12:10)

== ENCOUNTER 2020-06-20 17:00 | Observation (INO) ==
[2020-06-20] MEDS ORDERED: Isovue-370 500 ML BOTTLE IVP ONE (17:58)
[2020-06-20] MEDS ORDERED: *HR* FentaNYL (PF) 100 MCG/2 ML VIAL IVP ONE ×2 (17:58→20:26)
[2020-06-20] MEDS ORDERED: Nitroglycerin 0.4 MG TAB.SUBL SL PRN (17:58)
[2020-06-20] MEDS ORDERED: Ondansetron 4 MG/2 ML VIAL IVP ONE (18:18)
[2020-06-20 18:28] LABS: Basophils % 0.1 %; Eosinophils % 0.1 %; Hematocrit 29.8 % (37.5-50.1); Hemoglobin 9.6 g/dL (12.9-16.9); Immature Granulocytes % 0.4 % (0-4); Lymphocytes # 0.6 K/mcL (0.6-4.6); Lymphocytes % 6.9 %; Mean Corpuscular HGB Conc 32.2 g/dL (31.6-35.5); Mean Corpuscular Hemoglobin 31.2 pg (28.0-33.3); Mean Corpuscular Volume 96.8 fL (83.0-100.0); Mean Platelet Volume 9.7 fL (9.4-12.4); Monocytes # 0.5 K/mcL (0.0-1.3); Neutrophils # 7.8 K/mcL (1.6-8.9); Platelet Count 242 K/mcL (140-400); Red Blood Count 3.08 M/mcL (4.19-5.50); Red Cell Distribution Width 15.9 % (11.5-14.5); Segmented Neutrophils % 87.5 %; White Blood Count 8.9 K/mcL (4.3-11.1)
[2020-06-20 18:49] LABS: Alanine Aminotransferase 38 Units/L (7-52); Albumin 2.7 g/dL (3.5-5.7); Albumin/Globulin Ratio 0.8 (1.1-2.2); Alkaline Phosphatase 735 Units/L (34-104); Aspartate Amino Transferase 64 Units/L (13-39); BUN/Creatinine Ratio 16 (6-26); Bilirubin,Total 0.6 mg/dL (0.3-1.0); Blood Urea Nitrogen 14 mg/dL (8-23); Calcium 7.1 mg/dL (8.6-10.3); Carbon Dioxide 22 mEq/L (23-29); Chloride 106 mEq/L (98-107); Globulin 3.4 g/dL (2.4-3.5); Glucose 126 mg/dL (70-105); Lipase 7 Units/L (11-82); Osmolality,Calculated 280 (280-300); Potassium 4.1 mEq/L (3.5-5.1); Sodium 134 mEq/L (136-145); Total Protein 6.1 g/dL (6.4-8.9); Troponin I < 0.03 ng/mL (< 0.04); eGFR For African Americans > 60 (> 60); eGFR For Non-African Americans > 60 (> 60)
[2020-06-20] MEDS ORDERED: Metoclopramide 10 MG/2 ML VIAL IVP ONE (20:26)
[2020-06-20] MEDS ORDERED: Aspirin 325 MG TABLET PO ONE (22:29)
[2020-06-20] MEDS ORDERED: Aspirin 81 MG TAB.CHEW ONE (23:18)
[2020-06-21] MEDS ORDERED: D5% in Water 1,000 ML IVC PRN (01:00)
[2020-06-21] MEDS ORDERED: *HR* Dextrose 50 % in Water (Vial) 50 ML VIAL IVP PRN (01:00)
[2020-06-21] MEDS ORDERED: Dextrose Gel 15 GM/37.5 ML TUBE PO PRN ×2 (01:00)
[2020-06-21] MEDS ORDERED: Nitroglycerin 0.4 MG TAB.SUBL SL PRN (01:02)
[2020-06-21] MEDS ORDERED: Naloxone 0.4 MG/ML INJ IVP PRN (01:03)
[2020-06-21] MEDS ORDERED: Morphine Sulfate 2 MG/ML SYRINGE IVP ONE (01:03)
[2020-06-21] MEDS ORDERED: Perflutren Lipid Microsphere 1.3 ML in 0.9 % Sodium Chloride 8.7 ML IVP PRN (01:04)
[2020-06-21] MEDS ORDERED: SODIUM CHLORIDE 0.9% IVC SCH (01:15)
[2020-06-21] MEDS ORDERED: NALOXONE IVC SCH (01:15)
[2020-06-21 02:09] LABS: % Iron Saturation 6 % (20-55); BUN/Creatinine Ratio 17 (6-26); Blood Urea Nitrogen 15 mg/dL (8-23); Calcium 7.3 mg/dL (8.6-10.3); Carbon Dioxide 19 mEq/L (23-29); Chloride 107 mEq/L (98-107); Chol/HDL Ratio 2.3 (0-4.9); Cholesterol 119 mg/dL (< 200); Glucose 85 mg/dL (70-105); HDL Cholesterol 51 mg/dL (40-59); Iron 14 mcg/dL (65-175); LDL Cholesterol,Calculated 52 mg/dL (< 100); Magnesium 1.8 mg/dL (1.6-2.6); Osmolality,Calculated 276 (280-300); Potassium 4.8 mEq/L (3.5-5.1); Sodium 133 mEq/L (136-145); Transferrin 171 mg/dL (203-362); Triglycerides 81 mg/dL (< 150); eGFR For African Americans > 60 (> 60); eGFR For Non-African Americans > 60 (> 60)
[2020-06-21] MEDS ORDERED: Metoclopramide 10 MG/2 ML VIAL IVP PRN (02:19)
[2020-06-21 03:01] LABS: Thyroid Stimulating Hormone 23.793 mcIU/mL (0.340-5.600); Troponin I 0.03 ng/mL (< 0.04)
[2020-06-21] MEDS: Calcium Gluconate 1gm/50mL 1 GM/50 ML BAG IVPB SCH ×2 (03:18→03:49)
[2020-06-21] MEDS: Pantoprazole 40 MG VIAL IVP SCH ×2 (05:44→16:07)
[2020-06-21] MEDS: Insulin LISPRO 300 UNITS/3 ML VIAL SUBQ SCH ×3 (05:48→16:07)
[2020-06-21] MEDS ORDERED: Regadenoson 0.4 MG/5 ML SYRINGE IVP ONE (06:18)
[2020-06-21] MEDS ORDERED: *HR* FentaNYL (PF) 100 MCG/2 ML VIAL IVP ONE (07:35)
[2020-06-21 07:37] LABS: Hematocrit 28.6 % (37.5-50.1); Hemoglobin 9.3 g/dL (12.9-16.9); Mean Corpuscular HGB Conc 32.5 g/dL (31.6-35.5); Mean Corpuscular Hemoglobin 30.6 pg (28.0-33.3); Mean Corpuscular Volume 94.1 fL (83.0-100.0); Mean Platelet Volume 10.9 fL (9.4-12.4); Platelet Count 185 K/mcL (140-400); Red Blood Count 3.04 M/mcL (4.19-5.50); Red Cell Distribution Width 15.9 % (11.5-14.5); White Blood Count 9.4 K/mcL (4.3-11.1)
[2020-06-21 09:20] LABS: Estimated Average Glucose 260 mg/dl; Hemoglobin A1C 10.7 %
[2020-06-21] MEDS: Insulin DETEMIR 100 UNIT/ML X5UNITS SUBQ SCH (10:15)
[2020-06-21] MEDS: amLODIPine 5 MG TABLET PO SCH (10:25)
[2020-06-21] MEDS: Cyanocobalamin (B-12) 1,000 MCG TABLET PO SCH (10:25)
[2020-06-21] MEDS: Thiamine (B-1) 100 MG TABLET PO SCH (10:26)
[2020-06-21] MEDS: Aspirin Enteric Coated 81 MG Tablet PO SCH (10:26)
[2020-06-21] MEDS: Gabapentin 100 MG CAPSULE PO SCH ×3 (10:26→20:26)
[2020-06-21] MEDS ORDERED: GI Cocktail 40 ML EACH PO ONE (12:14)
[2020-06-21] MEDS ORDERED: *HR* HYDROcodone/Acet 5/325 mg TABLET PO ONE (15:45)
[2020-06-21] MEDS ORDERED: Ketorolac 15 MG/ML VIAL IVP ONE (20:39)
[2020-06-22] MEDS: Insulin LISPRO 300 UNITS/3 ML VIAL SUBQ SCH ×4 (00:11→16:02)
[2020-06-22] MEDS ORDERED: Acetaminophen 325 MG TABLET PO PRN (01:44)
[2020-06-22] MEDS: Pantoprazole 40 MG VIAL IVP SCH (05:51)
[2020-06-22] MEDS: Aspirin Enteric Coated 81 MG Tablet PO SCH (07:48)
[2020-06-22] MEDS: Gabapentin 100 MG CAPSULE PO SCH ×2 (07:48→16:01)
[2020-06-22] MEDS: amLODIPine 5 MG TABLET PO SCH (07:49)
[2020-06-22] MEDS: Thiamine (B-1) 100 MG TABLET PO SCH (07:49)
[2020-06-22] MEDS: Cyanocobalamin (B-12) 1,000 MCG TABLET PO SCH (07:49)
[2020-06-22] MEDS: Insulin DETEMIR 100 UNIT/ML X5UNITS SUBQ SCH (07:51)
[2020-06-22] MEDS ORDERED: *HR* OxyCODONE Immed Rel 5 MG TABLET PO ONE (09:37)
[2020-06-22 11:29] VITALS: BP 121/78
== END 2020-06-22 18:05 | disposition home or self-care (01) ==
LOC: EMEROOARM 17:00 → 3BNU 17:00 → SUATTDRO 22:57 → 3BNU 23:23
PROVIDERS: ADMIT Internal Medicine; ATTEND Registered Nurse

== ENCOUNTER 2020-06-25 09:35 | Inpatient (IN) ==
[2020-06-25] MEDS ORDERED: Ondansetron 4 MG/2 ML VIAL IVP ONE (10:05)
[2020-06-25] MEDS ORDERED: *HR* HYDROmorphone (PF) 1 MG/ML SYRINGE IVP ONE ×2 (10:05→12:21)
[2020-06-25] MEDS ORDERED: Isovue-370 500 ML BOTTLE IVP ONE (10:08)
[2020-06-25 11:50] LABS: Basophils % 0.1 %; Eosinophils % 0.1 %; Hematocrit 29.9 % (37.5-50.1); Hemoglobin 9.6 g/dL (12.9-16.9); Immature Granulocytes % 0.4 % (0-4); Lymphocytes # 0.6 K/mcL (0.6-4.6); Lymphocytes % 4.5 %; Mean Corpuscular HGB Conc 32.1 g/dL (31.6-35.5); Mean Corpuscular Hemoglobin 30.9 pg (28.0-33.3); Mean Corpuscular Volume 96.1 fL (83.0-100.0); Mean Platelet Volume 9.9 fL (9.4-12.4); Monocytes # 0.4 K/mcL (0.0-1.3); Monocytes % 2.9 %; Neutrophils # 12.8 K/mcL (1.6-8.9); Platelet Count 203 K/mcL (140-400); Red Blood Count 3.11 M/mcL (4.19-5.50); Red Cell Distribution Width 15.6 % (11.5-14.5); White Blood Count 13.9 K/mcL (4.3-11.1)
[2020-06-25 11:56] LABS: INR 1.1; Prothrombin Time 12.4 Seconds (9.4-12.1)
[2020-06-25 12:07] LABS: Acetaminophen < 10 mcg/mL (10-20); Ethanol < 10 mg/dL (Less than 10)
[2020-06-25 12:11] LABS: Alanine Aminotransferase 28 Units/L (7-52); Albumin 2.5 g/dL (3.5-5.7); Albumin/Globulin Ratio 0.8 (1.1-2.2); Alkaline Phosphatase 867 Units/L (34-104); Aspartate Amino Transferase 30 Units/L (13-39); BUN/Creatinine Ratio 13 (6-26); Bilirubin,Direct 0.3 mg/dL (0.0-0.2); Bilirubin,Indirect 0.5 mg/dL (0.0-1.0); Bilirubin,Total 0.8 mg/dL (0.3-1.0); Blood Urea Nitrogen 14 mg/dL (8-23); Calcium 7.3 mg/dL (8.6-10.3); Carbon Dioxide 20 mEq/L (23-29); Chloride 107 mEq/L (98-107); Globulin 3.3 g/dL (2.4-3.5); Glucose 222 mg/dL (70-105); Lipase 5 Units/L (11-82); Osmolality,Calculated 283 (280-300); Potassium 4.1 mEq/L (3.5-5.1); Sodium 133 mEq/L (136-145); Total Protein 5.8 g/dL (6.4-8.9); Troponin I < 0.03 ng/mL (< 0.04); eGFR For African Americans > 60 (> 60); eGFR For Non-African Americans > 60 (> 60)
[2020-06-25] MEDS ORDERED: MetroNIDAZOLE 500 MG/100 ML 500 MG/100 ML BAG IVPB ONE (14:33)
[2020-06-25] MEDS ORDERED: Melatonin 3 MG TABLET PO PRN (14:59)
[2020-06-25] MEDS ORDERED: Acetaminophen 325 MG TABLET PO PRN (14:59)
[2020-06-25] MEDS ORDERED: Furosemide 40 MG/4 ML VIAL IVP ONE (15:12)
[2020-06-25 17:35] LABS: Bilirubin,Urine Negative (Negative); Blood,Urine Negative (Negative); Clarity,Urine Clear (Clear); Color,Urine Light-Yellow (Yellow); Glucose,Urine (UA) 100 mg/dL (Normal); Ketones,Urine Negative (Negative); Leukocyte Esterase,Urine Negative (Negative); Mucus,Urine Few per lpf (None-Few); Nitrite,Urine Negative (Negative); PH,Urine 6.5 pH Units (5.0-8.0); Protein,Urine Trace mg/dL (Neg-Trace); Specific Gravity,Urine 1.017 (1.010-1.025); Squamous Epithelial Cell,Urine Few per hpf (None-Few); Urobilinogen,Urine Normal (Normal); WBC,Urine 0-3 per hpf (0-3)
[2020-06-25] MEDS: *HR* HYDROcodone/Acet 5/325 mg TABLET PO PRN ×2 (17:47→23:49)
[2020-06-25 17:50] LABS: Amphetamine Screen,Urine Negative ng/mL (Cutoff=1000); Barbiturate Screen,Urine Negative ng/mL (Cutoff=200); Benzodiazepines Screen,Urine Negative ng/mL (Cutoff=200); Cannabinoid Screen,Urine Positive ng/mL (Cutoff = 50); Cocaine Screen,Urine Negative ng/mL (Cutoff= 300); Opiate Screen,Urine Positive ng/mL (Cutoff=300); Phencyclidine Screen,Urine Negative ng/mL (Cutoff=25)
[2020-06-25] MEDS: Ondansetron 4 MG/2 ML VIAL IVP PRN (19:53)
[2020-06-26 06:24] LABS: Hematocrit 27.7 % (37.5-50.1); Hemoglobin 8.6 g/dL (12.9-16.9); Mean Corpuscular Hemoglobin 30.2 pg (28.0-33.3); Mean Corpuscular Volume 97.2 fL (83.0-100.0); Platelet Count 173 K/mcL (140-400); Red Blood Count 2.85 M/mcL (4.19-5.50); Red Cell Distribution Width 15.2 % (11.5-14.5)
[2020-06-26 06:25] LABS: Alanine Aminotransferase 23 Units/L (7-52); Albumin 2.3 g/dL (3.5-5.7); Albumin/Globulin Ratio 0.7 (1.1-2.2); Alkaline Phosphatase 722 Units/L (34-104); Aspartate Amino Transferase 22 Units/L (13-39); BUN/Creatinine Ratio 13 (6-26); Bilirubin,Direct 0.1 mg/dL (0.0-0.2); Bilirubin,Indirect 0.3 mg/dL (0.0-1.0); Bilirubin,Total 0.4 mg/dL (0.3-1.0); Blood Urea Nitrogen 14 mg/dL (8-23); Calcium 7.1 mg/dL (8.6-10.3); Carbon Dioxide 20 mEq/L (23-29); Chloride 104 mEq/L (98-107); Globulin 3.1 g/dL (2.4-3.5); Glucose 283 mg/dL (70-105); Magnesium 1.6 mg/dL (1.6-2.6); Osmolality,Calculated 279 (280-300); Phosphorous 2.4 mg/dL (2.7-4.5); Potassium 4.5 mEq/L (3.5-5.1); Sodium 129 mEq/L (136-145); Total Protein 5.4 g/dL (6.4-8.9); eGFR For African Americans > 60 (> 60); eGFR For Non-African Americans > 60 (> 60)
[2020-06-26 06:31] LABS: Prothrombin Time 11.5 Seconds (9.4-12.1)
[2020-06-26] MEDS: Furosemide 20 MG/2 ML VIAL IVP SCH ×2 (09:49→16:20)
[2020-06-26] MEDS: amLODIPine 5 MG TABLET PO SCH (09:49)
[2020-06-26] MEDS: Thiamine (B-1) 100 MG TABLET PO SCH (09:49)
[2020-06-26] MEDS: Cyanocobalamin (B-12) 1,000 MCG TABLET PO SCH (09:49)
[2020-06-26] MEDS: Aspirin Enteric Coated 81 MG Tablet PO SCH (09:49)
[2020-06-26] MEDS: *HR* HYDROcodone/Acet 5/325 mg TABLET PO PRN (09:57)
[2020-06-26] MEDS: Insulin LISPRO 300 UNITS/3 ML VIAL SUBQ SCH ×3 (11:47→20:28)
[2020-06-26] MEDS: metroNIDAZOLE 500 MG TABLET PO SCH ×2 (14:01→20:29)
[2020-06-27 04:25] LABS: Hematocrit 29.1 % (37.5-50.1); Hemoglobin 9.4 g/dL (12.9-16.9); Mean Corpuscular HGB Conc 32.3 g/dL (31.6-35.5); Mean Corpuscular Hemoglobin 30.6 pg (28.0-33.3); Mean Corpuscular Volume 94.8 fL (83.0-100.0); Mean Platelet Volume 9.6 fL (9.4-12.4); Platelet Count 194 K/mcL (140-400); Red Blood Count 3.07 M/mcL (4.19-5.50); White Blood Count 6.5 K/mcL (4.3-11.1)
[2020-06-27 04:36] LABS: INR 1.1; Prothrombin Time 12.2 Seconds (9.4-12.1)
[2020-06-27 04:46] LABS: Alanine Aminotransferase 22 Units/L (7-52); Albumin 2.4 g/dL (3.5-5.7); Albumin/Globulin Ratio 0.7 (1.1-2.2); Alkaline Phosphatase 741 Units/L (34-104); Aspartate Amino Transferase 21 Units/L (13-39); BUN/Creatinine Ratio 9 (6-26); Bilirubin,Direct 0.2 mg/dL (0.0-0.2); Bilirubin,Indirect 0.3 mg/dL (0.0-1.0); Bilirubin,Total 0.5 mg/dL (0.3-1.0); Blood Urea Nitrogen 10 mg/dL (8-23); Calcium 7.1 mg/dL (8.6-10.3); Carbon Dioxide 23 mEq/L (23-29); Chloride 102 mEq/L (98-107); Globulin 3.3 g/dL (2.4-3.5); Glucose 132 mg/dL (70-105); Magnesium 1.5 mg/dL (1.6-2.6); Osmolality,Calculated 271 (280-300); Potassium 4.2 mEq/L (3.5-5.1); Sodium 130 mEq/L (136-145); Total Protein 5.7 g/dL (6.4-8.9); eGFR For African Americans > 60 (> 60); eGFR For Non-African Americans > 60 (> 60)
[2020-06-27] MEDS: Furosemide 20 MG/2 ML VIAL IVP SCH ×2 (07:34→16:25)
[2020-06-27] MEDS: Aspirin Enteric Coated 81 MG Tablet PO SCH (07:35)
[2020-06-27] MEDS: metroNIDAZOLE 500 MG TABLET PO SCH ×3 (07:35→21:43)
[2020-06-27] MEDS: amLODIPine 5 MG TABLET PO SCH (07:35)
[2020-06-27] MEDS: Cyanocobalamin (B-12) 1,000 MCG TABLET PO SCH (07:36)
[2020-06-27] MEDS: Thiamine (B-1) 100 MG TABLET PO SCH (07:36)
[2020-06-27] MEDS: Insulin LISPRO 300 UNITS/3 ML VIAL SUBQ SCH ×4 (07:37→21:43)
[2020-06-27] MEDS: Ondansetron 4 MG/2 ML VIAL IVP PRN (08:40)
[2020-06-27] MEDS: *HR* HYDROcodone/Acet 5/325 mg TABLET PO PRN (08:40)
[2020-06-27] MEDS ORDERED: Spironolactone 25 MG TABLET PO SCH (09:00)
[2020-06-27 16:26] LABS: Glucose,Peritoneal Fluid 156 mg/dL (No Ref Range); LDH,Peritoneal Fluid 41 Units/L (No Ref Range); Total Protein,Peritoneal Fluid < 2.0 g/dL
[2020-06-27 18:30] LABS: RBC,Peritoneal Fluid < 2000 RBC/mcL
[2020-06-27 18:35] LABS: Appearance of Peritoneal Fl CLEAR (Clear)
[2020-06-28] MEDS: *HR* HYDROcodone/Acet 5/325 mg TABLET PO PRN (02:15)
[2020-06-28 06:43] LABS: BUN/Creatinine Ratio 8 (6-26); Blood Urea Nitrogen 9 mg/dL (8-23); Calcium 6.9 mg/dL (8.6-10.3); Carbon Dioxide 23 mEq/L (23-29); Chloride 102 mEq/L (98-107); Glucose 138 mg/dL (70-105); Magnesium 1.7 mg/dL (1.6-2.6); Osmolality,Calculated 271 (280-300); Phosphorous 2.2 mg/dL (2.7-4.5); Potassium 4.3 mEq/L (3.5-5.1); Sodium 130 mEq/L (136-145); eGFR For African Americans > 60 (> 60); eGFR For Non-African Americans > 60 (> 60)
[2020-06-28 07:13] LABS: Adenovirus Not Detected (Not Detect); Bordetella Pertussis Not Detected (Not Detect); Chlamydophila pneumoniae Not Detected (Not Detect); Coronavirus 229E Not Detected (Not Detect); Coronavirus HKU1 Not Detected (Not Detect); Coronavirus NL63 Not Detected (Not Detect); Coronavirus OC43 Not Detected (Not Detect); Human Metapneumovirus Not Detected (Not Detect); Human Rhinovirus/Enterovirus Not Detected (Not Detect); Influenza A Subtype 2009 H1 Not Detected (Not Detect); Influenza B Not Detected (Not Detect); Mycoplasma pneumoniae Not Detected (Not Detect); Parainfluenza Virus 1 Not Detected (Not Detect); Parainfluenza Virus 2 Not Detected (Not Detect); Parainfluenza Virus 3 Not Detected (Not Detect); Parainfluenza Virus 4 Not Detected (Not Detect); Respiratory Syncytial Virus Not Detected (Not Detect); SARS-CoV-2 Not Detected (Not Detect)
[2020-06-28] MEDS ORDERED: Spironolactone 25 MG TABLET PO SCH (09:00)
[2020-06-28] MEDS ORDERED: Furosemide 40 MG TABLET PO SCH (09:00)
[2020-06-28] MEDS: metroNIDAZOLE 500 MG TABLET PO SCH ×3 (09:25→21:11)
[2020-06-28] MEDS: Insulin LISPRO 300 UNITS/3 ML VIAL SUBQ SCH ×4 (09:26→21:11)
[2020-06-28] MEDS: Cyanocobalamin (B-12) 1,000 MCG TABLET PO SCH (09:26)
[2020-06-28] MEDS: amLODIPine 5 MG TABLET PO SCH (09:26)
[2020-06-28] MEDS: Aspirin Enteric Coated 81 MG Tablet PO SCH (09:26)
[2020-06-28] MEDS: Thiamine (B-1) 100 MG TABLET PO SCH (09:26)
[2020-06-28] MEDS ORDERED: Baclofen 10 MG TABLET PO PRN (11:09)
[2020-06-28] MEDS: Gabapentin 100 MG CAPSULE PO SCH ×2 (12:01→15:54)
[2020-06-28] MEDS ORDERED: *HR* Succinylcholine 200 MG/10 ML VIAL IVP ONE (18:27)
[2020-06-28] MEDS ORDERED: Ondansetron 4 MG/2 ML VIAL ONE (18:27)
[2020-06-28] MEDS ORDERED: Lidocaine -MPF 2% 2 ML VIAL ONE (18:27)
[2020-06-28] MEDS ORDERED: Lidocaine HCL 4 ML Topical Solution (Laryng-O-Jet Kit Sterile Pak) TP ONE (18:27)
[2020-06-28] MEDS ORDERED: Lidocaine/EPI 1:200k 1% PF 10 ML VIAL ONE (18:27)
[2020-06-28] MEDS ORDERED: *HR* Rocuronium Bromide 50 MG/5 ML VIAL ONE (18:27)
[2020-06-28] MEDS ORDERED: *HR* FentaNYL (PF) 100 MCG/2 ML VIAL ONE (18:28)
[2020-06-28] MEDS ORDERED: *HR* Propofol 200 MG/20 ML VIAL IVP ONE (18:28)
[2020-06-28] MEDS ORDERED: Morphine Sulfate 2 MG/ML SYRINGE IVP PRN ×2 (18:33→20:47)
[2020-06-28] MEDS ORDERED: EPHEDrine 50 MG/ML VIAL ONE (19:09)
[2020-06-28] MEDS ORDERED: Acetaminophen 325 MG TABLET PO PRN (20:47)
[2020-06-28] MEDS ORDERED: Melatonin 3 MG TABLET PO PRN (20:47)
[2020-06-28] MEDS: Gabapentin 300 MG CAPSULE PO SCH (21:11)
[2020-06-29] MEDS: *HR* HYDROcodone/Acet 5/325 mg TABLET PO PRN ×3 (00:36→16:46)
[2020-06-29 06:37] LABS: Calcium 6.6 mg/dL (8.6-10.3); Potassium 4.3 mEq/L (3.5-5.1)
[2020-06-29] MEDS: Insulin LISPRO 300 UNITS/3 ML VIAL SUBQ SCH ×5 (06:50→23:46)
[2020-06-29] MEDS ORDERED: Insulin DETEMIR 100 UNIT/ML X5UNITS SUBQ STA (08:37)
[2020-06-29] MEDS ORDERED: Insulin LISPRO 300 UNITS/3 ML VIAL SUBQ ONE (08:38)
[2020-06-29] MEDS: amLODIPine 5 MG TABLET PO SCH (09:41)
[2020-06-29] MEDS: Cyanocobalamin (B-12) 1,000 MCG TABLET PO SCH (09:41)
[2020-06-29] MEDS: metroNIDAZOLE 500 MG TABLET PO SCH ×3 (09:42→20:19)
[2020-06-29] MEDS: Spironolactone 25 MG TABLET PO SCH (09:42)
[2020-06-29] MEDS: Thiamine (B-1) 100 MG TABLET PO SCH (09:42)
[2020-06-29] MEDS: Aspirin Enteric Coated 81 MG Tablet PO SCH (09:42)
[2020-06-29] MEDS: Furosemide 40 MG TABLET PO SCH (09:42)
[2020-06-29] MEDS: Gabapentin 300 MG CAPSULE PO SCH ×3 (09:42→20:19)
[2020-06-29] MEDS ORDERED: Insulin Human Regular 10 UNIT in 0.9 % Sodium Chloride 10 ML IV ONE (12:45)
[2020-06-29 15:40] LABS: Magnesium 1.8 mg/dL (1.6-2.6); Potassium 3.9 mEq/L (3.5-5.1)
[2020-06-29] MEDS ORDERED: Ipratropium/Albuterol Neb 3 ML IH PRN (17:51)
[2020-06-29] MEDS ORDERED: *HR* Dextrose 50 % in Water (Vial) 50 ML VIAL IVP PRN (22:33)
[2020-06-29] MEDS ORDERED: D5% in Water 1,000 ML IVC PRN (22:33)
[2020-06-29] MEDS ORDERED: Dextrose Gel 15 GM/37.5 ML TUBE PO PRN ×2 (22:33)
[2020-06-29] MEDS: *HR* Heparin 5,000 UNIT/ML VIAL SQ SCH (22:47)
[2020-06-30] MEDS: *HR* Heparin 5,000 UNIT/ML VIAL SQ SCH ×3 (05:33→21:36)
[2020-06-30] MEDS: *HR* HYDROcodone/Acet 5/325 mg TABLET PO PRN (05:54)
[2020-06-30 06:05] LABS: Basophils % 0.2 %; Eosinophils # 0.1 K/mcL (0.0-0.6); Eosinophils % 1.3 %; Hematocrit 25.6 % (37.5-50.1); Hemoglobin 8.5 g/dL (12.9-16.9); Immature Granulocytes % 0.5 % (0-4); Lymphocytes # 1.6 K/mcL (0.6-4.6); Lymphocytes % 16.1 %; Mean Corpuscular HGB Conc 33.2 g/dL (31.6-35.5); Mean Corpuscular Hemoglobin 30.7 pg (28.0-33.3); Mean Corpuscular Volume 92.4 fL (83.0-100.0); Mean Platelet Volume 9.9 fL (9.4-12.4); Monocytes # 0.6 K/mcL (0.0-1.3); Monocytes % 6.3 %; Neutrophils # 7.3 K/mcL (1.6-8.9); Platelet Count 210 K/mcL (140-400); Red Blood Count 2.77 M/mcL (4.19-5.50); Red Cell Distribution Width 14.4 % (11.5-14.5); Segmented Neutrophils % 75.6 %; White Blood Count 9.7 K/mcL (4.3-11.1)
[2020-06-30 06:44] LABS: Estimated Average Glucose 235 mg/dl; Hemoglobin A1C 9.8 %
[2020-06-30 07:25] LABS: Albumin 2.3 g/dL (3.5-5.7); Albumin/Globulin Ratio 0.8 (1.1-2.2); Bilirubin,Direct 0.1 mg/dL (0.0-0.2); Bilirubin,Indirect 0.3 mg/dL (0.0-1.0); Bilirubin,Total 0.4 mg/dL (0.3-1.0); Calcium 6.5 mg/dL (8.6-10.3); Globulin 2.8 g/dL (2.4-3.5); Magnesium 1.5 mg/dL (1.6-2.6); Total Protein 5.1 g/dL (6.4-8.9)
[2020-06-30] MEDS: Insulin LISPRO 300 UNITS/3 ML VIAL SUBQ SCH ×4 (10:52→21:37)
[2020-06-30] MEDS: Baclofen 10 MG TABLET PO PRN (10:54)
[2020-06-30] MEDS: amLODIPine 5 MG TABLET PO SCH (10:54)
[2020-06-30] MEDS: Spironolactone 25 MG TABLET PO SCH (10:55)
[2020-06-30] MEDS: metroNIDAZOLE 500 MG TABLET PO SCH ×3 (10:55→21:36)
[2020-06-30] MEDS: Cyanocobalamin (B-12) 1,000 MCG TABLET PO SCH (10:55)
[2020-06-30] MEDS: Aspirin Enteric Coated 81 MG Tablet PO SCH (10:55)
[2020-06-30] MEDS: Gabapentin 300 MG CAPSULE PO SCH ×3 (10:55→21:36)
[2020-06-30] MEDS: Furosemide 40 MG TABLET PO SCH (10:55)
[2020-06-30] MEDS: Thiamine (B-1) 100 MG TABLET PO SCH (10:55)
[2020-06-30] MEDS: *HR* HYDROcodone/Acet 10/325 mg TABLET PO PRN (14:04)
[2020-06-30] MEDS ORDERED: Insulin DETEMIR 100 UNIT/ML X5UNITS SUBQ SCH (14:41)
[2020-06-30] MEDS: Insulin DETEMIR 100 UNIT/ML X5UNITS SUBQ SCH (21:37)
[2020-07-01] MEDS: Ondansetron 4 MG/2 ML VIAL IVP PRN (00:29)
[2020-07-01] MEDS: *HR* HYDROcodone/Acet 10/325 mg TABLET PO PRN ×3 (00:29→20:18)
[2020-07-01] MEDS: *HR* Heparin 5,000 UNIT/ML VIAL SQ SCH ×3 (05:35→20:12)
[2020-07-01 05:53] LABS: Basophils % 0.2 %; Eosinophils # 0.1 K/mcL (0.0-0.6); Eosinophils % 0.6 %; Hematocrit 25.6 % (37.5-50.1); Hemoglobin 8.4 g/dL (12.9-16.9); Immature Granulocytes % 0.4 % (0-4); Lymphocytes # 0.9 K/mcL (0.6-4.6); Lymphocytes % 9.8 %; Mean Corpuscular HGB Conc 32.8 g/dL (31.6-35.5); Mean Corpuscular Hemoglobin 30.9 pg (28.0-33.3); Mean Corpuscular Volume 94.1 fL (83.0-100.0); Mean Platelet Volume 9.9 fL (9.4-12.4); Monocytes # 0.4 K/mcL (0.0-1.3); Platelet Count 205 K/mcL (140-400); Red Blood Count 2.72 M/mcL (4.19-5.50); Red Cell Distribution Width 14.5 % (11.5-14.5); White Blood Count 9.4 K/mcL (4.3-11.1)
[2020-07-01 06:24] LABS: Calcium 6.6 mg/dL (8.6-10.3); Magnesium 1.7 mg/dL (1.6-2.6); Potassium 4.2 mEq/L (3.5-5.1)
[2020-07-01 06:29] LABS: Triiodothyronine (T3) Free < 0.88 pg/mL (2.50-3.90)
[2020-07-01] MEDS: Spironolactone 25 MG TABLET PO SCH (08:24)
[2020-07-01] MEDS: Aspirin Enteric Coated 81 MG Tablet PO SCH (08:24)
[2020-07-01] MEDS: Furosemide 40 MG TABLET PO SCH (08:24)
[2020-07-01] MEDS: metroNIDAZOLE 500 MG TABLET PO SCH ×3 (08:24→20:12)
[2020-07-01] MEDS: Insulin DETEMIR 100 UNIT/ML X5UNITS SUBQ SCH ×2 (08:25→20:12)
[2020-07-01] MEDS: Cyanocobalamin (B-12) 1,000 MCG TABLET PO SCH (08:25)
[2020-07-01] MEDS: amLODIPine 5 MG TABLET PO SCH (08:25)
[2020-07-01] MEDS: Thiamine (B-1) 100 MG TABLET PO SCH (08:25)
[2020-07-01] MEDS: Gabapentin 300 MG CAPSULE PO SCH ×3 (08:25→20:12)
[2020-07-01] MEDS: Insulin LISPRO 300 UNITS/3 ML VIAL SUBQ SCH ×3 (08:25→18:57)
[2020-07-02] MEDS: *HR* HYDROcodone/Acet 10/325 mg TABLET PO PRN ×3 (03:00→21:52)
[2020-07-02] MEDS: Baclofen 10 MG TABLET PO PRN ×2 (03:00→12:41)
[2020-07-02 03:35] LABS: Basophils % 0.2 %; Eosinophils % 0.4 %; Hematocrit 26.2 % (37.5-50.1); Hemoglobin 8.7 g/dL (12.9-16.9); Immature Granulocytes % 0.2 % (0-4); Lymphocytes # 0.8 K/mcL (0.6-4.6); Lymphocytes % 9.3 %; Mean Corpuscular HGB Conc 33.2 g/dL (31.6-35.5); Mean Corpuscular Volume 93.2 fL (83.0-100.0); Mean Platelet Volume 10.1 fL (9.4-12.4); Monocytes # 0.4 K/mcL (0.0-1.3); Monocytes % 4.5 %; Neutrophils # 7.6 K/mcL (1.6-8.9); Platelet Count 227 K/mcL (140-400); Red Blood Count 2.81 M/mcL (4.19-5.50); Red Cell Distribution Width 14.5 % (11.5-14.5); Segmented Neutrophils % 85.4 %; White Blood Count 8.9 K/mcL (4.3-11.1)
[2020-07-02 03:54] LABS: Albumin 2.6 g/dL (3.5-5.7); Albumin/Globulin Ratio 0.8 (1.1-2.2); Bilirubin,Direct 0.2 mg/dL (0.0-0.2); Bilirubin,Indirect 0.2 mg/dL (0.0-1.0); Bilirubin,Total 0.4 mg/dL (0.3-1.0); Calcium 6.9 mg/dL (8.6-10.3); Globulin 3.3 g/dL (2.4-3.5); Magnesium 1.6 mg/dL (1.6-2.6); Potassium 4.8 mEq/L (3.5-5.1); Total Protein 5.9 g/dL (6.4-8.9)
[2020-07-02] MEDS: *HR* Heparin 5,000 UNIT/ML VIAL SQ SCH ×3 (05:32→21:48)
[2020-07-02] MEDS: metroNIDAZOLE 500 MG TABLET PO SCH ×3 (07:50→21:47)
[2020-07-02] MEDS: Thiamine (B-1) 100 MG TABLET PO SCH (07:50)
[2020-07-02] MEDS: amLODIPine 5 MG TABLET PO SCH (07:50)
[2020-07-02] MEDS: Cyanocobalamin (B-12) 1,000 MCG TABLET PO SCH (07:50)
[2020-07-02] MEDS: Spironolactone 25 MG TABLET PO SCH (07:50)
[2020-07-02] MEDS: Aspirin Enteric Coated 81 MG Tablet PO SCH (07:50)
[2020-07-02] MEDS: Furosemide 40 MG TABLET PO SCH (07:50)
[2020-07-02] MEDS: Gabapentin 300 MG CAPSULE PO SCH ×3 (07:51→21:48)
[2020-07-02] MEDS: Insulin LISPRO 300 UNITS/3 ML VIAL SUBQ SCH ×3 (07:55→17:47)
[2020-07-02] MEDS: Cholecalciferol (D-3) 1,000 UNIT (25MCG) TABLET PO SCH (12:32)
[2020-07-02] MEDS: Ondansetron 4 MG/2 ML VIAL IVP PRN ×2 (15:45→21:52)
[2020-07-02] MEDS: Insulin DETEMIR 100 UNIT/ML X5UNITS SUBQ SCH ×2 (15:51→22:05)
[2020-07-02] MEDS: *HR* Promethazine 25 MG/ML VIAL IM PRN (17:46)
[2020-07-03 02:01] LABS: Basophils % 0.5 %; Eosinophils % 0.5 %; Hematocrit 25.7 % (37.5-50.1); Hemoglobin 8.3 g/dL (12.9-16.9); Immature Granulocytes % 0.3 % (0-4); Lymphocytes # 0.8 K/mcL (0.6-4.6); Lymphocytes % 12.2 %; Mean Corpuscular HGB Conc 32.3 g/dL (31.6-35.5); Mean Corpuscular Hemoglobin 30.9 pg (28.0-33.3); Mean Corpuscular Volume 95.5 fL (83.0-100.0); Monocytes # 0.5 K/mcL (0.0-1.3); Monocytes % 8.1 %; Neutrophils # 4.8 K/mcL (1.6-8.9); Platelet Count 180 K/mcL (140-400); Red Blood Count 2.69 M/mcL (4.19-5.50); Red Cell Distribution Width 14.7 % (11.5-14.5); Segmented Neutrophils % 78.4 %; White Blood Count 6.2 K/mcL (4.3-11.1)
[2020-07-03 02:14] LABS: Calcium 7.2 mg/dL (8.6-10.3); Magnesium 1.5 mg/dL (1.6-2.6); Potassium 4.3 mEq/L (3.5-5.1)
[2020-07-03] MEDS: *HR* Dextrose 50 % in Water (Vial) 50 ML VIAL IVP PRN ×2 (03:46→04:32)
[2020-07-03] MEDS: *HR* HYDROcodone/Acet 10/325 mg TABLET PO PRN ×3 (04:05→19:48)
[2020-07-03] MEDS: Ondansetron 4 MG/2 ML VIAL IVP PRN ×2 (04:05→13:01)
[2020-07-03] MEDS: *HR* Heparin 5,000 UNIT/ML VIAL SQ SCH ×3 (05:23→19:33)
[2020-07-03] MEDS: Insulin LISPRO 300 UNITS/3 ML VIAL SUBQ SCH ×4 (06:26→16:05)
[2020-07-03] MEDS ORDERED: *HR* Dextrose 50 % in Water (Vial) 50 ML VIAL IVP PRN (07:26)
[2020-07-03] MEDS ORDERED: D5% in Water 1,000 ML IVC PRN (07:26)
[2020-07-03] MEDS: Cyanocobalamin (B-12) 1,000 MCG TABLET PO SCH (07:41)
[2020-07-03] MEDS: *HR* Promethazine 25 MG/ML VIAL IM PRN ×2 (07:41→19:38)
[2020-07-03] MEDS: Aspirin Enteric Coated 81 MG Tablet PO SCH (07:42)
[2020-07-03] MEDS: metroNIDAZOLE 500 MG TABLET PO SCH (07:42)
[2020-07-03] MEDS: Gabapentin 300 MG CAPSULE PO SCH ×3 (07:42→19:35)
[2020-07-03] MEDS: Spironolactone 25 MG TABLET PO SCH (07:42)
[2020-07-03] MEDS: Furosemide 40 MG TABLET PO SCH (07:43)
[2020-07-03] MEDS: Thiamine (B-1) 100 MG TABLET PO SCH (07:43)
[2020-07-03] MEDS ORDERED: Lactulose Oral Soln 20 GM/30 ML UDC PO ONE (07:50)
[2020-07-03] MEDS: Cholecalciferol (D-3) 1,000 UNIT (25MCG) TABLET PO SCH (07:50)
[2020-07-03] MEDS: Insulin DETEMIR 100 UNIT/ML X5UNITS SUBQ SCH ×3 (08:00→19:35)
[2020-07-03] MEDS: Pantoprazole 40 MG VIAL IVP SCH (17:19)
[2020-07-04 01:33] LABS: Basophils % 0.4 %; Eosinophils % 0.6 %; Hemoglobin 8.9 g/dL (12.9-16.9); Immature Granulocytes % 0.4 % (0-4); Lymphocytes # 1.1 K/mcL (0.6-4.6); Lymphocytes % 15.1 %; Mean Corpuscular Hemoglobin 30.1 pg (28.0-33.3); Mean Corpuscular Volume 91.2 fL (83.0-100.0); Mean Platelet Volume 9.9 fL (9.4-12.4); Monocytes # 0.6 K/mcL (0.0-1.3); Monocytes % 7.7 %; Neutrophils # 5.4 K/mcL (1.6-8.9); Platelet Count 255 K/mcL (140-400); Red Blood Count 2.96 M/mcL (4.19-5.50); Red Cell Distribution Width 14.5 % (11.5-14.5); Segmented Neutrophils % 75.8 %; White Blood Count 7.2 K/mcL (4.3-11.1)
[2020-07-04 01:50] LABS: Albumin 2.7 g/dL (3.5-5.7); Albumin/Globulin Ratio 0.7 (1.1-2.2); Bilirubin,Direct 0.1 mg/dL (0.0-0.2); Bilirubin,Indirect 0.3 mg/dL (0.0-1.0); Bilirubin,Total 0.4 mg/dL (0.3-1.0); Calcium 7.7 mg/dL (8.6-10.3); Globulin 3.7 g/dL (2.4-3.5); Magnesium 2.1 mg/dL (1.6-2.6); Potassium 4.7 mEq/L (3.5-5.1); Total Protein 6.4 g/dL (6.4-8.9)
[2020-07-04] MEDS: Pantoprazole 40 MG VIAL IVP SCH ×2 (04:27→18:03)
[2020-07-04] MEDS: *HR* Heparin 5,000 UNIT/ML VIAL SQ SCH ×3 (04:28→20:42)
[2020-07-04] MEDS: Ondansetron 4 MG/2 ML VIAL IVP PRN ×3 (04:36→20:40)
[2020-07-04] MEDS: Gabapentin 300 MG CAPSULE PO SCH ×3 (07:34→20:42)
[2020-07-04] MEDS: Aspirin Enteric Coated 81 MG Tablet PO SCH (07:34)
[2020-07-04] MEDS: Cholecalciferol (D-3) 1,000 UNIT (25MCG) TABLET PO SCH (07:34)
[2020-07-04] MEDS: Furosemide 40 MG TABLET PO SCH (07:35)
[2020-07-04] MEDS: Cyanocobalamin (B-12) 1,000 MCG TABLET PO SCH (07:35)
[2020-07-04] MEDS: Spironolactone 25 MG TABLET PO SCH (07:35)
[2020-07-04] MEDS: Thiamine (B-1) 100 MG TABLET PO SCH (07:35)
[2020-07-04] MEDS: Insulin DETEMIR 100 UNIT/ML X5UNITS SUBQ SCH ×2 (07:41→20:40)
[2020-07-04] MEDS: Insulin LISPRO 300 UNITS/3 ML VIAL SUBQ SCH ×3 (07:51→18:04)
[2020-07-04] MEDS: *HR* Promethazine 25 MG/ML VIAL IM PRN ×2 (07:52→16:28)
[2020-07-04 18:52] LABS: Glucose,Peritoneal Fluid 258 mg/dL (No Ref Range); LDH,Peritoneal Fluid 39 Units/L (No Ref Range); Total Protein,Peritoneal Fluid < 2.0 g/dL
[2020-07-04 18:53] LABS: RBC,Peritoneal Fluid < 2000 RBC/mcL
[2020-07-04] MEDS: *HR* HYDROcodone/Acet 10/325 mg TABLET PO PRN (20:53)
[2020-07-04 21:28] LABS: Basophils,Peritoneal Fluid 0 %; Eosinophils,Peritoneal Fluid 0 %
[2020-07-04 21:29] LABS: Appearance of Peritoneal Fl CLEAR (Clear)
[2020-07-04] MEDS ORDERED: Prochlorperazine 10 MG/2 ML VIAL IVP PRN (22:03)
[2020-07-05 05:06] LABS: Basophils % 0.3 %; Eosinophils # 0.1 K/mcL (0.0-0.6); Eosinophils % 0.9 %; Hematocrit 24.8 % (37.5-50.1); Hemoglobin 8.1 g/dL (12.9-16.9); Immature Granulocytes % 0.4 % (0-4); Lymphocytes # 1.3 K/mcL (0.6-4.6); Lymphocytes % 19.3 %; Mean Corpuscular HGB Conc 32.7 g/dL (31.6-35.5); Mean Corpuscular Hemoglobin 30.2 pg (28.0-33.3); Mean Corpuscular Volume 92.5 fL (83.0-100.0); Mean Platelet Volume 10.1 fL (9.4-12.4); Monocytes # 0.6 K/mcL (0.0-1.3); Monocytes % 8.1 %; Neutrophils # 4.9 K/mcL (1.6-8.9); Platelet Count 230 K/mcL (140-400); Red Blood Count 2.68 M/mcL (4.19-5.50); Red Cell Distribution Width 14.6 % (11.5-14.5); White Blood Count 6.9 K/mcL (4.3-11.1)
[2020-07-05 05:22] LABS: Calcium 7.4 mg/dL (8.6-10.3); Magnesium 1.8 mg/dL (1.6-2.6); Potassium 4.7 mEq/L (3.5-5.1)
[2020-07-05] MEDS: Pantoprazole 40 MG VIAL IVP SCH (05:43)
[2020-07-05] MEDS: *HR* Heparin 5,000 UNIT/ML VIAL SQ SCH (05:43)
[2020-07-05 08:00] VITALS: BP 119/66
[2020-07-05] MEDS: Insulin LISPRO 300 UNITS/3 ML VIAL SUBQ SCH ×2 (08:19→12:21)
[2020-07-05] MEDS: Spironolactone 25 MG TABLET PO SCH (09:26)
[2020-07-05] MEDS: Gabapentin 300 MG CAPSULE PO SCH (09:27)
[2020-07-05] MEDS: Furosemide 40 MG TABLET PO SCH (09:27)
[2020-07-05] MEDS: Aspirin Enteric Coated 81 MG Tablet PO SCH (09:27)
[2020-07-05] MEDS: Cholecalciferol (D-3) 1,000 UNIT (25MCG) TABLET PO SCH (09:27)
[2020-07-05] MEDS: Cyanocobalamin (B-12) 1,000 MCG TABLET PO SCH (09:27)
[2020-07-05] MEDS: Thiamine (B-1) 100 MG TABLET PO SCH (09:27)
[2020-07-05] MEDS: Insulin DETEMIR 100 UNIT/ML X5UNITS SUBQ SCH (09:36)
[2020-07-07 04:56] LABS: Fluid Source for Albumin PERITONEAL FL.
== END 2020-07-05 14:39 | disposition home or self-care (01) | DRG 988 ==
LOC: EMEROOARM 09:35 → 3ANU 09:35 → SUATTDRO 14:46 → 3ANU 15:20 → SUATTDRO 06-28 15:31
PROVIDERS: ADMIT Internal Medicine; ATTEND Pharmacist